=== PATIENT | male | born 1970 | race African-American/Black ===

== ENCOUNTER 2016-11-14 07:36 | Inpatient (IN) | payer BC ==
[2016-11-14] VITALS (17 sets, daily range): BP systolic 127–157; BP diastolic 79–102; PULSE 70–104; RESP 13–24; Ht 165.1 cm; Wt 118.2 kg
[~2016-11-14] VITALS: Ht 165.1 cm; Wt 118.2 kg
[~2016-11-14 07:36] MED LIST: CEFAZOLIN 2 GM/50 ML (PMX) 50 ML IVPB ONE; SOD CHLORIDE 0.9% 1,000 ML IV SCH
[2016-11-14] MEDS ORDERED: PRED5 PO (09:05)
[2016-11-14] MEDS ORDERED: PREDNISONE DROPS (09:05)
[2016-11-14] MEDS ORDERED: [UNRECOGNIZED DRUG - REMARK] PO (09:05)
[2016-11-14] MEDS ORDERED: CELLCEPT PO (09:05)
[2016-11-14] MEDS ORDERED: BUPIVACAINE 0.25% (MPF) 30 ML INJ ONE (09:31)
[2016-11-14] MEDS ORDERED: MIDAZOLAM 1 MG/ML 2 ML INJ ONE (09:38)
[2016-11-14] MEDS ORDERED: GLYCOPYRROLATE 0.4 MG INJ ONE (09:38)
[2016-11-14] MEDS ORDERED: PROPOFOL 20 ML ONE (09:38)
[2016-11-14] MEDS ORDERED: DEXAMETHASONE 4 MG/ML 1 ML INJ ONE (09:38)
[2016-11-14] MEDS ORDERED: FENTAnyl 50 MCG/ML VIAL ONE ×2 (09:38→10:31)
[2016-11-14] MEDS ORDERED: ONDANSETRON 4 MG INJ ONE (09:38)
[2016-11-14] MEDS ORDERED: ROCURONIUM 50 MG INJ ONE (09:38)
[2016-11-14] MEDS ORDERED: NEOSTIGMINE 3 MG/3 ML SYRINGE ONE (09:38)
[2016-11-14] MEDS ORDERED: CEFAZOLIN 1 GM INJ ONE (09:38)
[2016-11-14] MEDS ORDERED: LABETALOL HCL 20MG INJ ONE (10:05)
[2016-11-14] MEDS ORDERED: TRIMETHOBENZAMIDE 100 MG/ML VIAL IM PRN (10:30)
[2016-11-14] MEDS ORDERED: ONDANSETRON 4 MG INJ IV PRN (10:30)
[2016-11-14] MEDS ORDERED: hydrALAzine 20 MG INJ IV PRN (10:30)
[2016-11-14] MEDS ORDERED: OXYCODONE/ACETAMINOPHEN (5/325) TAB PO PRN ×2 (10:30)
[2016-11-14] MEDS ORDERED: FENTAnyl 50 MCG/ML VIAL IV PRN ×3 (10:30)
[2016-11-14] MEDS ORDERED: MEPERIDINE 25 MG INJ IV PRN (10:30)
[2016-11-14] MEDS ORDERED: MIDAZOLAM 1 MG/ML 2 ML INJ IV PRN (10:30)
[2016-11-14] MEDS ORDERED: DIPHENHYDRAMINE 50 MG INJ IV PRN (10:30)
[2016-11-14] MEDS ORDERED: EPHEDrine SULFATE 50 MG/5 ML SYG IV PRN (10:30)
[2016-11-14] MEDS ORDERED: LABETALOL HCL 20MG INJ IV PRN (10:30)
[2016-11-14] MEDS ORDERED: HYDROmorphONE (0.2 MG/ML) 10ML SYG IV PRN ×3 (10:30)
[2016-11-14] MEDS ORDERED: SUGAMMADEX SODIUM 200 MG/2 ML VIAL IV ONE (11:42)
[2016-11-14] MEDS ORDERED: SOD CHLORIDE 0.9% 1,000 ML IV SCH (11:49)
[2016-11-14] MEDS ORDERED: CEFAZOLIN 2 GM/50 ML (PMX) 50 ML IVPB SCH (12:00)
--- NOTE | 2016-11-14 12:01 | OPR ---
Date/Time of Note Date/Time of Note DATE: 11/14/16 TIME: 11:52 Operative Report Procedure Date: Nov 14, 2016 Preoperative Diagnosis symptomatic cholelithiasis and liver ALVARADO Postoperative Diagnosis same Operation Performed 1. laparoscopic converted to open cholecystectomy 2. liver wedge biopsy cpt code 88498 3. placement of intraabdominal drain 4. therapeutic injection of subcutaneous marcaine Surgeon: Debbie CASTANEDA Specimens gallbladder wedge liver biopsy Tubes/Drains 19 mars drain Procedure Description Patient is taken to the OR and prepped and draped in usual sterile fashion. Surgical timeout is performed IV antibiotics at given. Infraumbilical transverse incision was made with a 15 blade dissection cautery was carried onto the fascia. Fascia is divided. 0 Vicryl U stitch was placed to the fascia balloon Contreras trocar was introduced and pneumoperitoneum is established mid epigastric 12 mm optical trocar was placed under direct visualization right upper quadrant right upper flank 5 mm optical trocar was placed under direct visualization upon initial inspection the gallbladder had adhesions which were taken down bluntly. The gallbladder appeared severely intrahepatic. Further inspection showed that mobilization and manipulation of the gallbladder was extremely difficult due to the morbid obesity of the patient and poor visualization. Decision was made to convert to open. Right subcostal incision was made with 10 blade dissection cautery was carried down through the fascia. The gallbladder was identified and resected at the cystic duct and cystic artery using multiple fires of 35 mm vascular load echelon stapler. Additionally there is some oozing from the gallbladder bed this was closed by using interrupted 0 chromic sutures. There is good hemostasis. Mars drain was placed. This was used to drain the gallbladder bed. The incision was closed with a running #1 PDS loop from midline to lateral and lateral to midline. This was tied down. The wound was irrigated with Betadine. The incisions were closed using skin alonso. Local anesthesia was therapeutically injected into all surgical sites. 0 Vicryl U stitch was tied down skin was stapled. The infra umbilical incision was also injected with local anesthesia. Dry dressings were applied. Debbie CASTANEDA Nov 14, 2016 12:01
--- NOTE | 2016-11-14 12:07 | RADRPT ---
PROCEDURE: XR Abdomen. CLINICAL INDICATION: Evaluate for foreign body. TECHNIQUE: AP abdomen x-ray. COMPARISON: None. FINDINGS: The tubing artifact projects across the right flank with its tip in the right upper abdomen. An NG t ube is in place with its tip distal to the GE junction. There is a partially visualized tubing paula fact projecting in the area of the right upper abdomen. The bony elements are anatomically aligned w ith no acute fracture or bone metastasis noted.. There is fecal material in the ascending colon.. No abnormal intra-abdominal calcification or intra-abdominal mass is noted. No metallic foreign body i s identified. IMPRESSION: 1. The tubing artifact projects across the mid right flank with its distal end projecting in the rig ht upper abdomen. 2. An NG tube is noted distal to the GE junction. RPTAT:AAJJ Physician Libia Date Time Electronically viewed and signed by Physician Libia on 11/14/2016 12:07 DAI/
[2016-11-14 12:16] LABS: ADD SCAN DIFF NO
[2016-11-14 12:21] LABS: BASOPHILS % 0.1 % (0.0-2.0); EOSINOPHILS # 0.1 10^3/ul (0.0-0.5); EOSINOPHILS % 0.5 % (0.0-7.0); HEMATOCRIT 38.2 % (42.0-52.0); HEMOGLOBIN 11.7 g/dl (14.0-18.0); LYMPHOCYTES # 2.4 10^3/ul (0.8-2.9); MEAN CORPUSCULAR HEMOGLOBIN 22.7 pg (29.0-33.0); MEAN CORPUSCULAR HGB CONC 30.6 g/dl (32.0-37.0); MEAN CORPUSCULAR VOLUME 74.2 fl (82.0-101.0); MEAN PLATELET VOLUME 10.5 fl (7.4-10.4); MONOCYTE # 0.8 10^3/ul (0.3-0.9); MONOCYTES % 5.4 % (0.0-11.0); NEUTROPHIL # 11.8 10^3/ul (1.6-7.5); NEUTROPHILS % 77.2 % (39.0-77.0); PLATELET COUNT 205 10^3/UL (140-415); RED BLOOD COUNT 5.15 10^6/ul (4.70-6.10); RED CELL DISTRIBUTION WIDTH 17.5 % (11.5-14.5); WHITE BLOOD COUNT 15.3 10^3/ul (4.8-10.8)
[2016-11-14] MEDS: ACETAMINOPHEN 1000MG/100ML IV 100 ML IVPB SCH ×2 (12:40→18:02)
[2016-11-14 12:42] LABS: ALBUMIN 4.1 g/dl (3.3-4.9); ALBUMIN/GLOBULIN RATIO 1.7; BILIRUBIN,INDIRECT 0.1 mg/dl (0-1.1); BILIRUBIN,TOTAL 0.1 mg/dl (0.2-1.3); TOTAL PROTEIN 6.5 g/dl (6.1-8.1)
[2016-11-14 12:51] LABS: CALCIUM 8.4 mg/dl (8.4-10.2); CREATININE 1.2 mg/dl (0.61-1.24)
[2016-11-14 12:56] LABS: POTASSIUM 5.4 mmol/L (3.5-5.1)
[2016-11-14] MEDS ORDERED: GLUCOSE GEL 15 GRAM TUBE BUCCAL PRN (13:30)
[2016-11-14] MEDS ORDERED: GLUCOSE GEL 15 GRAM TUBE PO PRN ×2 (13:30)
[2016-11-14] MEDS ORDERED: DEXTROSE 50% 50 ML SYRINGE IV PRN ×2 (13:30)
[2016-11-14] MEDS ORDERED: NALOXONE (0.4 MG/ML) INJ IV PRN (13:30)
[2016-11-14] MEDS ORDERED: GLUCAGON 1 MG INJ IM PRN (13:30)
[2016-11-14] MEDS ORDERED: HYDROmorphONE 0.2 MG/ML PCA IV SCH (13:30)
[2016-11-14] MEDS: morphine 2 MG INJ IV PRN ×3 (13:44→19:56)
[2016-11-14] MEDS: DEXTROSE 5% 1,000 ML IV SCH (13:53)
--- NOTE | 2016-11-14 13:57 | HP ---
Date/Time of Note Date/Time of Note DATE: 11/14/16 TIME: 13:39 Assessment/Plan VTE Prophylaxis VTE Prophylaxis Intervention: SCD's Lines/Catheters IV Catheter Type (from Nrsg): Peripheral IV Assessment/Plan Assessment/Plan -Symptomatic cholelithiasis, status post open cholecystectomy and liver biopsy. Continue postoperative antibiotic. Continue Zofran as needed for nausea and Dilaudid BUYER BROKER for pain. Advance diet per surgery. -Prediabetes, continue to monitor blood sugar every 6 hours with NovoLog sliding sliding scale coverage. -Obesity with BMI of 43.4 Further recommendations based on clinical course. End of care discussed with Dr. Nesbitt. HPI/ROS Admit Date/Time Admit Date/Time Hx of Present Illness The patient is 46-year-old gentleman with history of prediabetes and obesity was evaluated by Dr. Reyes in surgical consultation for symptomatic cholelithiasis. Patient was brought to the hospital and underwent laparoscopic converted to open cholecystectomy and liver biopsy. Postoperatively patient is lethargic but easily arousable, reluctant to provide detailed medical history stated that he feels tired. Patient denies any shortness of breath denies any chest pain denies any nausea complaints of abdominal pain. PMH/Family/Social Past Medical History Prediabetes Past Surgical History Status post cataract surgery, status post hernia repair in 2006 Family History Significant Family History: no pertinent family hx Social History Alcohol Use: none Smoking Status: Former smoker Drug Use: none Exam/Review of Systems Vital Signs Vitals Vital Signs Date Time Temp Pulse Resp B/P Pulse Ox O2 Delivery O2 Flow Rate FiO2 11/14/16 12:58 102 14 140/95 99 Nasal Cannula 3.0 11/14/16 11:58 98.0 Exam Constitutional: alert, oriented, other (Lethargic) Head: atraumatic, normocephalic Neck: supple Respiratory: normal air movement Cardiovascular: nl pulses Gastrointestinal: other (Status post surgery was FLORA drain ), soft Musculoskeletal: nl gait and stance Extremities: normal pulses Labs Result Diagram: 11/14/16 1210 11/14/16 1210 Medications Medications Current Medications Morphine Sulfate 2 mg 2 mg Q2H PRN IV PAIN LEVEL 6-10; Start 11/14/16 at 12:00 Acetaminophen 100 ml @ 400 mls/hr Q6H IVPB Last administered on 11/14/16t 12:40 ; Admin Dose 400 MLS/HR; Start 11/14/16 at 12:00 Cefazolin Sodium/ Dextrose 50 ml @ 100 mls/hr Q8H IVPB ; Start 11/14/16 at 18:00 ; Stop 11/15/16 at 10:29 Dextrose (D5W) 1,000 ml @ 100 mls/hr Q10H IV ; Start 11/14/16 at 13:00 Miscellaneous Information 1 ea NOTE XX ; Start 11/14/16 at 13:30 Glucose (Glutose) 15 gm Q15M PRN PO DECREASED GLUCOSE; Start 11/14/16 at 13:30 Glucose (Glutose) 22.5 gm Q15M PRN PO DECREASED GLUCOSE; Start 11/14/16 at 13:30 Dextrose (D50w Syringe) 25 ml Q15M PRN IV DECREASED GLUCOSE; Start 11/14/16 at 13:30 Dextrose (D50w Syringe) 50 ml Q15M PRN IV DECREASED GLUCOSE; Start 11/14/16 at 13:30 Glucagon (Glucagen) 1 mg Q15M PRN IM DECREASED GLUCOSE; Start 11/14/16 at 13:30 Glucose (Glutose) 15 gm Q15M PRN BUCCAL DECREASED GLUCOSE; Start 11/14/16 at 13: 30 Diagnostic Test (Pha) (Accu-Chek) 1 ea 02 XX ; Start 11/14/16 at 13:30 Naloxone HCl (Narcan) 0.2 mg PRN PRN IV DECREASED REPIRATORY RATE; Start at 13:30; Stop 11/14/16 at 18:00 Hydromorphone HCl (Dilaudid BUYER BROKER) Q4PCA IV ; Start 11/14/16 at 13:30; Stop at 18:00 ANGELICA GONZALEZ Nov 14, 2016 13:57
[2016-11-14] MEDS: INSULIN ASPART [NOVOLOG] 3 ML PEN SC SCH ×2 (17:43→21:00)
[2016-11-14] MEDS: CEFAZOLIN 2 GM/50 ML (PMX) 50 ML IVPB SCH (18:35)
[2016-11-15] MEDS: DEXTROSE 5% 1,000 ML IV SCH (00:01)
[2016-11-15] MEDS: ACETAMINOPHEN 1000MG/100ML IV 100 ML IVPB SCH ×4 (00:01→17:54)
[2016-11-15] MEDS: ACCUCHECK 2 AM XX SCH (01:58)
[2016-11-15 02:00] VITALS: BP 139/86; PULSE 101; RESP 18
[2016-11-15] MEDS: CEFAZOLIN 2 GM/50 ML (PMX) 50 ML IVPB SCH ×2 (02:20→09:56)
[2016-11-15] MEDS: morphine 2 MG INJ IV PRN ×7 (04:59→23:12)
[2016-11-15 06:08] LABS: ADD SCAN DIFF NO
[2016-11-15 06:15] LABS: ABNORMAL IP MESSAGE 1; BASOPHILS % 0.1 % (0.0-2.0); HEMATOCRIT 35.4 % (42.0-52.0); LYMPHOCYTES # 1.3 10^3/ul (0.8-2.9); LYMPHOCYTES % 8.7 % (15.0-51.0); MEAN CORPUSCULAR HEMOGLOBIN 22.8 pg (29.0-33.0); MEAN CORPUSCULAR HGB CONC 31.1 g/dl (32.0-37.0); MEAN CORPUSCULAR VOLUME 73.3 fl (82.0-101.0); MEAN PLATELET VOLUME 10.8 fl (7.4-10.4); MONOCYTE # 1.7 10^3/ul (0.3-0.9); MONOCYTES % 11.3 % (0.0-11.0); NEUTROPHIL # 11.6 10^3/ul (1.6-7.5); NEUTROPHILS % 79.1 % (39.0-77.0); PLATELET COUNT 168 10^3/UL (140-415); RED BLOOD COUNT 4.83 10^6/ul (4.70-6.10); RED CELL DISTRIBUTION WIDTH 17.1 % (11.5-14.5); WHITE BLOOD COUNT 14.6 10^3/ul (4.8-10.8)
[2016-11-15 06:59] LABS: ALBUMIN 3.7 g/dl (3.3-4.9); ALBUMIN/GLOBULIN RATIO 1.85; BILIRUBIN,INDIRECT 0.3 mg/dl (0-1.1); BILIRUBIN,TOTAL 0.3 mg/dl (0.2-1.3); CALCIUM 8.3 mg/dl (8.4-10.2); CREATININE 0.96 mg/dl (0.61-1.24); TOTAL PROTEIN 5.7 g/dl (6.1-8.1)
[2016-11-15] MEDS: SOD CHLORIDE 0.9% 1,000 ML IV SCH ×2 (07:56→18:38)
[2016-11-15] MEDS: INSULIN ASPART [NOVOLOG] 3 ML PEN SC SCH ×4 (08:06→20:19)
[2016-11-15 08:22] VITALS: BP 137/83; RESP 20
--- NOTE | 2016-11-15 10:51 | PN ---
Date/Time of Note Date/Time of Note DATE: 11/15/16 TIME: 10:51 Assessment/Plan VTE Prophylaxis VTE Prophylaxis Intervention: other Lines/Catheters IV Catheter Type (from Nrsg): Peripheral IV Assessment/Plan Chief Complaint/Hosp Course -Symptomatic cholelithiasis, status post open cholecystectomy and liver biopsy. Continue postoperative antibiotic. Continue Zofran as needed for nausea and Dilaudid CREPE MAKER for pain. Advance diet per surgery. -Prediabetes, continue to monitor blood sugar every 6 hours with NovoLog sliding sliding scale coverage. -Obesity with BMI of 43.4 Problems: Subjective 24 Hr Interval Summary Free Text/Dictation Patient continues to have abdominal pain at site of surgery Exam/Review of Systems Vital Signs Vitals Vital Signs Date Time Temp Pulse Resp B/P Pulse Ox O2 Delivery O2 Flow Rate FiO2 11/15/16 08:22 98.7 89 20 137/83 100 11/15/16 02:00 Nasal Cannula 2.0 Intake and Output 11/14/16 11/14/16 11/15/16 15:00 23:00 07:00 Intake Total 2200 ml 600 ml 1150 ml Output Total 275 ml 70 ml 1540 ml Balance 1925 ml 530 ml -390 ml Exam Constitutional: well developed Head: atraumatic, normocephalic Neck: supple Respiratory: clear to auscultation Cardiovascular: regular rate and rhythm Gastrointestinal: non-tender, soft Extremities: normal pulses Results Result Diagram: 11/15/16 0536 11/15/16 0536 Results 24 hrs Laboratory Tests Test 11/14/16 12:10 11/14/16 12:48 11/14/16 17:34 11/14/16 21:47 White Blood Count 15.3 H Red Blood Count 5.15 Hemoglobin 11.7 L Hematocrit 38.2 L Mean Corpuscular Volume 74.2 L Mean Corpuscular Hemoglobin 22.7 L Mean Corpuscular Hemoglobin Concent 30.6 L Red Cell Distribution Width 17.5 H Platelet Count 205 Mean Platelet Volume 10.5 H Neutrophils % 77.2 H Lymphocytes % 16.0 Monocytes % 5.4 Eosinophils % 0.5 Basophils % 0.1 Nucleated Red Blood Cells % 0.0 Neutrophils # 11.8 H Lymphocytes # 2.4 Monocytes # 0.8 Eosinophils # 0.1 Basophils # 0.0 Nucleated Red Blood Cells # 0.0 Sodium Level 136 Potassium Level 5.4 H Chloride Level 108 Carbon Dioxide Level 22 Anion Gap 11 Blood Urea Nitrogen 14 Creatinine 1.20 Glucose Level 163 Calcium Level 8.4 Total Bilirubin 0.1 L Direct Bilirubin 0.00 Indirect Bilirubin 0.1 Aspartate Amino Transf (AST/SGOT) 234 H Alanine Aminotransferase (ALT/SGPT) 237 H Alkaline Phosphatase 54 Total Protein 6.5 Albumin 4.1 Globulin 2.40 Albumin/Globulin Ratio 1.70 Bedside Glucose 209 172 167 Test 11/15/16 05:36 11/15/16 07:59 White Blood Count 14.6 H Red Blood Count 4.83 Hemoglobin 11.0 L Hematocrit 35.4 L Mean Corpuscular Volume 73.3 L Mean Corpuscular Hemoglobin 22.8 L Mean Corpuscular Hemoglobin Concent 31.1 L Red Cell Distribution Width 17.1 H Platelet Count 168 Mean Platelet Volume 10.8 H Neutrophils % 79.1 H Lymphocytes % 8.7 L Monocytes % 11.3 H Eosinophils % 0.0 Basophils % 0.1 Nucleated Red Blood Cells % 0.0 Neutrophils # 11.6 H Lymphocytes # 1.3 Monocytes # 1.7 H Eosinophils # 0.0 Basophils # 0.0 Nucleated Red Blood Cells # 0.0 Sodium Level 128 L Potassium Level 4.0 Chloride Level 91 #L Carbon Dioxide Level 25 Anion Gap 16 Blood Urea Nitrogen 12 Creatinine 0.96 Glucose Level 448 #*H Calcium Level 8.3 L Total Bilirubin 0.3 Direct Bilirubin 0.00 Indirect Bilirubin 0.3 Aspartate Amino Transf (AST/SGOT) 178 H Alanine Aminotransferase (ALT/SGPT) 229 H Alkaline Phosphatase 42 Total Protein 5.7 L Albumin 3.7 Globulin 2.00 Albumin/Globulin Ratio 1.85 Bedside Glucose 141 Medications Medications Current Medications Morphine Sulfate 2 mg 2 mg Q2H PRN IV PAIN LEVEL 6-10 Last administered on 08:46; Admin Dose 2 MG; Start 11/14/16 at 12:00 Acetaminophen (Ofirmev 1000mg/ 100ml Iv) 100 ml @ 400 mls/hr Q6H IVPB Last administered on 11/15/16 05:55; Admin Dose 400 MLS/HR; Start 11/14/16 at 12:00 Miscellaneous Information 1 ea NOTE XX ; Start 11/14/16 at 13:30 Glucose (Glutose) 15 gm Q15M PRN PO DECREASED GLUCOSE; Start 11/14/16 at 13:30 Glucose (Glutose) 22.5 gm Q15M PRN PO DECREASED GLUCOSE; Start 11/14/16 at 13:30 Dextrose (D50w Syringe) 25 ml Q15M PRN IV DECREASED GLUCOSE; Start 11/14/16 at 13:30 Dextrose (D50w Syringe) 50 ml Q15M PRN IV DECREASED GLUCOSE; Start 11/14/16 at 13:30 Glucagon (Glucagen) 1 mg Q15M PRN IM DECREASED GLUCOSE; Start 11/14/16 at 13:30 Glucose (Glutose) 15 gm Q15M PRN BUCCAL DECREASED GLUCOSE; Start 11/14/16 at 13: 30 Diagnostic Test (Pha) 1 ea 1 ea 02 XX ; Start 11/14/16 at 13:30 Sodium Chloride (NS) 1,000 ml @ 100 mls/hr Q10H IV Last administered on t 07:56; Admin Dose 100 MLS/HR; Start 11/15/16 at 08:00 CHRISTY GALLOWAY Nov 15, 2016 10:51
[2016-11-15] MEDS ORDERED: VITAMIN A & D 5 GM OINT PACKET TOP ONE (10:58)
[2016-11-15] MEDS ORDERED: VITAMIN A & D 5 GM OINT PACKET TOP PRN (11:00)
[2016-11-15] MEDS: ONDANSETRON 4 MG INJ IV PRN (17:54)
[2016-11-15 20:00] VITALS: BP 139/80; PULSE 107; RESP 18
[2016-11-16] MEDS: ACETAMINOPHEN 1000MG/100ML IV 100 ML IVPB SCH ×5 (01:02→23:32)
[2016-11-16] MEDS: ONDANSETRON 4 MG INJ IV PRN ×3 (01:02→20:51)
[2016-11-16] MEDS: morphine 2 MG INJ IV PRN ×4 (01:03→15:46)
[2016-11-16] MEDS: ACCUCHECK 2 AM XX SCH (02:00)
[2016-11-16 03:41] VITALS: BP 132/67; PULSE 115; RESP 18
[2016-11-16] MEDS: SOD CHLORIDE 0.9% 1,000 ML IV SCH ×4 (05:13→23:08)
[2016-11-16 06:23] LABS: ADD SCAN DIFF NO
[2016-11-16 06:32] LABS: ABNORMAL IP MESSAGE 1; BASOPHILS % 0.2 % (0.0-2.0); EOSINOPHILS # 0.1 10^3/ul (0.0-0.5); EOSINOPHILS % 0.5 % (0.0-7.0); HEMATOCRIT 34.6 % (42.0-52.0); HEMOGLOBIN 10.7 g/dl (14.0-18.0); LYMPHOCYTES # 1.6 10^3/ul (0.8-2.9); LYMPHOCYTES % 13.3 % (15.0-51.0); MEAN CORPUSCULAR HEMOGLOBIN 22.5 pg (29.0-33.0); MEAN CORPUSCULAR HGB CONC 30.9 g/dl (32.0-37.0); MEAN CORPUSCULAR VOLUME 72.8 fl (82.0-101.0); MEAN PLATELET VOLUME 11.3 fl (7.4-10.4); MONOCYTE # 1.6 10^3/ul (0.3-0.9); MONOCYTES % 12.7 % (0.0-11.0); NEUTROPHIL # 8.9 10^3/ul (1.6-7.5); NEUTROPHILS % 72.6 % (39.0-77.0); PLATELET COUNT 179 10^3/UL (140-415); RED BLOOD COUNT 4.75 10^6/ul (4.70-6.10); RED CELL DISTRIBUTION WIDTH 16.5 % (11.5-14.5); WHITE BLOOD COUNT 12.3 10^3/ul (4.8-10.8)
[2016-11-16 07:03] LABS: ALBUMIN 3.8 g/dl (3.3-4.9); ALBUMIN/GLOBULIN RATIO 1.65; BILIRUBIN,INDIRECT 0.5 mg/dl (0-1.1); BILIRUBIN,TOTAL 0.5 mg/dl (0.2-1.3); CALCIUM 8.8 mg/dl (8.4-10.2); TOTAL PROTEIN 6.1 g/dl (6.1-8.1)
[2016-11-16 07:44] VITALS: BP 134/77; RESP 19
[2016-11-16] MEDS: INSULIN ASPART [NOVOLOG] 3 ML PEN SC SCH ×4 (08:15→21:00)
--- NOTE | 2016-11-16 11:16 | PN ---
Date/Time of Note Date/Time of Note DATE: 11/16/16 TIME: 11:15 Assessment/Plan VTE Prophylaxis VTE Prophylaxis Intervention: other Lines/Catheters IV Catheter Type (from Nrsg): Peripheral IV Assessment/Plan Chief Complaint/Hosp Course -Symptomatic cholelithiasis, status post open cholecystectomy and liver biopsy. Continue postoperative antibiotic. Continue Zofran as needed for nausea and Dilaudid ROLL SKINNER for pain. Advance diet per surgery. -Prediabetes, continue to monitor blood sugar every 6 hours with NovoLog sliding sliding scale coverage. -Obesity with BMI of 43.4 Problems: Subjective 24 Hr Interval Summary Free Text/Dictation Patient complain of abdominal pain and constipation Exam/Review of Systems Vital Signs Vitals Vital Signs Date Time Temp Pulse Resp B/P Pulse Ox O2 Delivery O2 Flow Rate FiO2 11/16/16 07:47 Nasal Cannula 2.0 11/16/16 07:44 98.6 103 19 134/77 96 Intake and Output 11/15/16 11/15/16 11/16/16 15:00 23:00 07:00 Intake Total 450 ml 1100 ml 1290 ml Output Total 90 ml 50 ml 60 ml Balance 360 ml 1050 ml 1230 ml Exam Constitutional: well developed Head: atraumatic, normocephalic Neck: supple Respiratory: clear to auscultation Cardiovascular: regular rate and rhythm Gastrointestinal: soft, tender Extremities: normal pulses Results Result Diagram: 11/16/16 0542 11/16/16 0542 Results 24 hrs Laboratory Tests Test 11/15/16 11:52 11/15/16 16:56 11/15/16 20:11 11/16/16 05:42 Bedside Glucose 130 109 122 White Blood Count 12.3 H Red Blood Count 4.75 Hemoglobin 10.7 L Hematocrit 34.6 L Mean Corpuscular Volume 72.8 L Mean Corpuscular Hemoglobin 22.5 L Mean Corpuscular Hemoglobin Concent 30.9 L Red Cell Distribution Width 16.5 H Platelet Count 179 Mean Platelet Volume 11.3 H Neutrophils % 72.6 Lymphocytes % 13.3 L Monocytes % 12.7 H Eosinophils % 0.5 Basophils % 0.2 Nucleated Red Blood Cells % 0.0 Neutrophils # 8.9 H Lymphocytes # 1.6 Monocytes # 1.6 H Eosinophils # 0.1 Basophils # 0.0 Nucleated Red Blood Cells # 0.0 Sodium Level 138 Potassium Level 4.0 Chloride Level 99 Carbon Dioxide Level 28 Anion Gap 15 Blood Urea Nitrogen 14 Creatinine 1.00 Glucose Level 126 # Calcium Level 8.8 Total Bilirubin 0.5 Direct Bilirubin 0.00 Indirect Bilirubin 0.5 Aspartate Amino Transf (AST/SGOT) 101 H Alanine Aminotransferase (ALT/SGPT) 153 H Alkaline Phosphatase 49 Total Protein 6.1 Albumin 3.8 Globulin 2.30 Albumin/Globulin Ratio 1.65 Test 11/16/16 08:23 Bedside Glucose 124 Medications Medications Current Medications Morphine Sulfate 2 mg 2 mg Q2H PRN IV PAIN LEVEL 6-10 Last administered on 09:09; Admin Dose 2 MG; Start 11/14/16 at 12:00 Acetaminophen (Ofirmev 1000mg/ 100ml Iv) 100 ml @ 400 mls/hr Q6H IVPB Last administered on 11/16/16 05:13; Admin Dose 400 MLS/HR; Start 11/14/16 at 12:00 Miscellaneous Information 1 ea NOTE XX ; Start 11/14/16 at 13:30 Glucose (Glutose) 15 gm Q15M PRN PO DECREASED GLUCOSE; Start 11/14/16 at 13:30 Glucose (Glutose) 22.5 gm Q15M PRN PO DECREASED GLUCOSE; Start 11/14/16 at 13:30 Dextrose (D50w Syringe) 25 ml Q15M PRN IV DECREASED GLUCOSE; Start 11/14/16 at 13:30 Dextrose (D50w Syringe) 50 ml Q15M PRN IV DECREASED GLUCOSE; Start 11/14/16 at 13:30 Glucagon (Glucagen) 1 mg Q15M PRN IM DECREASED GLUCOSE; Start 11/14/16 at 13:30 Glucose (Glutose) 15 gm Q15M PRN BUCCAL DECREASED GLUCOSE; Start 11/14/16 at 13: 30 Diagnostic Test (Pha) 1 ea 1 ea 02 XX ; Start 11/14/16 at 13:30 Sodium Chloride (NS) 1,000 ml @ 100 mls/hr Q10H IV Last administered on 05:13; Admin Dose 100 MLS/HR; Start 11/15/16 at 08:00 Vitamin A/Vitamin D (Vitamin A & D Oint) 1 applic DAILY PRN TOP dryness Last administered on 11/15/16 11:48; Admin Dose 1 APPLIC; Start 11/15/16 at 11:00 Ondansetron HCl (Zofran Inj) 4 mg Q6H PRN IV NAUSEA AND/OR VOMITING Last administered on 11/16/16t 05:30; Admin Dose 4 MG; Start 11/15/16 at 17:00 Simethicone (Mylicon) 80 mg Q6H PRN PO DISTENSION/GAS/BLOATING; Start 11/16/16 at 11:30; Status UNV CHRITSY GALLOWAY Nov 16, 2016 11:15
[2016-11-16] MEDS ORDERED: BISACODYL 10 MG SUPP PR ONE (14:00)
[2016-11-16] MEDS ORDERED: BISACODYL 10 MG SUPP PR PRN (16:00)
[2016-11-16 19:54] VITALS: BP 176/98; RESP 20
[2016-11-17] MEDS: ACCUCHECK 2 AM XX SCH (01:04)
[2016-11-17 01:39] VITALS: BP 175/93; RESP 20
[2016-11-17] MEDS: PROMETHAZINE 25 MG TAB PO PRN ×2 (01:42→19:52)
[2016-11-17] MEDS: morphine 2 MG INJ IV PRN ×3 (01:43→21:08)
[2016-11-17] MEDS: SOD CHLORIDE 0.9% 1,000 ML IV SCH ×4 (03:31→19:46)
[2016-11-17] MEDS: ACETAMINOPHEN 1000MG/100ML IV 100 ML IVPB SCH ×4 (05:44→23:42)
[2016-11-17 06:05] LABS: ADD SCAN DIFF NO
[2016-11-17 06:46] LABS: ABNORMAL IP MESSAGE 1; BASOPHILS % 0.2 % (0.0-2.0); EOSINOPHILS % 0.1 % (0.0-7.0); HEMATOCRIT 35.5 % (42.0-52.0); HEMOGLOBIN 11.2 g/dl (14.0-18.0); LYMPHOCYTES # 1.3 10^3/ul (0.8-2.9); LYMPHOCYTES % 9.4 % (15.0-51.0); MEAN CORPUSCULAR HEMOGLOBIN 22.9 pg (29.0-33.0); MEAN CORPUSCULAR HGB CONC 31.5 g/dl (32.0-37.0); MEAN CORPUSCULAR VOLUME 72.4 fl (82.0-101.0); MEAN PLATELET VOLUME 11.3 fl (7.4-10.4); MONOCYTE # 1.8 10^3/ul (0.3-0.9); MONOCYTES % 12.9 % (0.0-11.0); NEUTROPHIL # 10.8 10^3/ul (1.6-7.5); NEUTROPHILS % 76.6 % (39.0-77.0); PLATELET COUNT 187 10^3/UL (140-415); RED CELL DISTRIBUTION WIDTH 16.9 % (11.5-14.5); WHITE BLOOD COUNT 14.1 10^3/ul (4.8-10.8)
[2016-11-17 06:51] LABS: ALBUMIN/GLOBULIN RATIO 1.73; BILIRUBIN,INDIRECT 0.4 mg/dl (0-1.1); BILIRUBIN,TOTAL 0.4 mg/dl (0.2-1.3); CALCIUM 8.6 mg/dl (8.4-10.2); CREATININE 0.97 mg/dl (0.61-1.24); POTASSIUM 3.8 mmol/L (3.5-5.1); TOTAL PROTEIN 6.3 g/dl (6.1-8.1)
[2016-11-17 07:55] VITALS: BP 136/90; RESP 20
[2016-11-17] MEDS: INSULIN ASPART [NOVOLOG] 3 ML PEN SC SCH ×4 (09:11→21:00)
--- NOTE | 2016-11-17 12:12 | RADRPT ---
PROCEDURE: Nuclear medicine hepatobiliary scan CLINICAL INDICATION: Right upper quadrant pain. Evaluate for biliary leak. Status post cholecyst ectomy. TECHNIQUE: 8.3 mCi of technetium-99m Choletec was administered intravenously. Planar imaging of t he hepatobiliary system was performed. Delayed images were obtained. Images were reviewed on the h igh resolution PACS workstation. COMPARISON: Abdomen x-ray 11/14/2016 FINDINGS: There is normal and homogeneous uptake throughout the hepatobiliary system. There is normal emptyin g of radiotracer into the biliary tract. The common bile duct is normal. The gallbladder is surgic ally absent. However, small focus of increased activity seen within the gallbladder bed likely repr esenting a small focal contained bile leak. There is visualization of the small bowel at 15 minutes . Activity is seen extending into the drainage catheter. However, there is no activity along the per ipheral margins of the peritoneal cavity. IMPRESSION: 1. Positive bile leak with minimal focal contained radiotracer material within the gallbladder ro a. 2. However, this is appropriately drained with visible radiotracer activity seen going appropriatel y into the drainage catheter. 3. There is no evidence for significant bile leak along the peripheral margins of the peritoneal ca vity. Again, the bile leak appears to be small and contained within the gallbladder fossa. 4. Patent common bile duct with normal visualization of the small bowel. RPTAT: HMJB .Andrez Baker MD, MD Date Time Electronically viewed and signed by .Andrez Baker MD, MD on 11/17/2016 12:12 .B/
--- NOTE | 2016-11-17 15:35 | PN ---
Date/Time of Note Date/Time of Note DATE: 11/17/16 TIME: 15:33 Assessment/Plan VTE Prophylaxis VTE Prophylaxis Intervention: SCD's Lines/Catheters IV Catheter Type (from Rust): Peripheral IV Assessment/Plan Chief Complaint/Hosp Course s/p lap gustavo to open for difficult visualization and morbid obesity Problems: Assessment/Plan small gallbladder bed bile leak vs cystic duct leak with adequate drainage from drain will continue to follow if output doesn't improve in 1-2 days may need ercp with stent to redirect bile flow Subjective 24 Hr Interval Summary Free Text/Dictation mrcp shows gallbladder bed small bile leak with adequate drainage suspect cystic duct leak vs foramen of [place] leak Exam/Review of Systems Vital Signs Vitals Vital Signs Date Time Temp Pulse Resp B/P Pulse Ox O2 Delivery O2 Flow Rate FiO2 11/17/16 07:55 98.6 101 20 136/90 94 11/17/16 01:57 Nasal Cannula 2.0 Intake and Output 11/16/16 11/16/16 11/17/16 15:00 23:00 07:00 Intake Total 100 ml 2020 ml 1290 ml Output Total 540 ml Balance 100 ml 2020 ml 750 ml Exam c/d/i Results Result Diagram: 11/17/16 0530 11/17/16 0530 Results 24 hrs Laboratory Tests Test 11/16/16 17:21 11/16/16 21:06 11/17/16 05:30 11/17/16 07:59 Bedside Glucose 128 114 141 White Blood Count 14.1 H Red Blood Count 4.90 Hemoglobin 11.2 L Hematocrit 35.5 L Mean Corpuscular Volume 72.4 L Mean Corpuscular Hemoglobin 22.9 L Mean Corpuscular Hemoglobin Concent 31.5 L Red Cell Distribution Width 16.9 H Platelet Count 187 Mean Platelet Volume 11.3 H Neutrophils % 76.6 Lymphocytes % 9.4 L Monocytes % 12.9 H Eosinophils % 0.1 Basophils % 0.2 Nucleated Red Blood Cells % 0.0 Neutrophils # 10.8 H Lymphocytes # 1.3 Monocytes # 1.8 H Eosinophils # 0.0 Basophils # 0.0 Nucleated Red Blood Cells # 0.0 Sodium Level 138 Potassium Level 3.8 Chloride Level 99 Carbon Dioxide Level 30 Anion Gap 13 Blood Urea Nitrogen 16 Creatinine 0.97 Glucose Level 121 Calcium Level 8.6 Total Bilirubin 0.4 Direct Bilirubin 0.00 Indirect Bilirubin 0.4 Aspartate Amino Transf (AST/SGOT) 47 #H Alanine Aminotransferase (ALT/SGPT) 101 H Alkaline Phosphatase 49 Total Protein 6.3 Albumin 4.0 Globulin 2.30 Albumin/Globulin Ratio 1.73 Lipase 20 L Test 11/17/16 12:05 Bedside Glucose 127 Medications Medications Current Medications Morphine Sulfate 2 mg 2 mg Q2H PRN IV PAIN LEVEL 6-10 Last administered on 11/17 12:09; Admin Dose 2 MG; Start 11/14/16 at 12:00 Acetaminophen (Ofirmev 1000mg/ 100ml Iv) 100 ml @ 400 mls/hr Q6H IVPB Last administered on 11/17/16 12:10; Admin Dose 400 MLS/HR; Start 11/14/16 at 12:00 Miscellaneous Information 1 ea NOTE XX ; Start 11/14/16 at 13:30 Glucose (Glutose) 15 gm Q15M PRN PO DECREASED GLUCOSE; Start 11/14/16 at 13:30 Glucose (Glutose) 22.5 gm Q15M PRN PO DECREASED GLUCOSE; Start 11/14/16 at 13:30 Dextrose (D50w Syringe) 25 ml Q15M PRN IV DECREASED GLUCOSE; Start 11/14/16 at 13:30 Dextrose (D50w Syringe) 50 ml Q15M PRN IV DECREASED GLUCOSE; Start 11/14/16 at 13:30 Glucagon (Glucagen) 1 mg Q15M PRN IM DECREASED GLUCOSE; Start 11/14/16 at 13:30 Glucose (Glutose) 15 gm Q15M PRN BUCCAL DECREASED GLUCOSE; Start 11/14/16 at 13: 30 Diagnostic Test (Pha) 1 ea 1 ea 02 XX ; Start 11/14/16 at 13:30 Sodium Chloride (NS) 1,000 ml @ 100 mls/hr Q10H IV Last administered on 03:31; Admin Dose 100 MLS/HR; Start 11/15/16 at 08:00 Vitamin A/Vitamin D (Vitamin A & D Oint) 1 applic DAILY PRN TOP dryness Last administered on 11/15/16 11:48; Admin Dose 1 APPLIC; Start 11/15/16 at 11:00 Ondansetron HCl (Zofran Inj) 4 mg Q6H PRN IV NAUSEA AND/OR VOMITING Last administered on 11/16/16 20:51; Admin Dose 4 MG; Start 11/15/16 at 17:00 Simethicone (Mylicon) 80 mg Q6H PRN PO DISTENSION/GAS/BLOATING Last administered on 11/16/16 21:00; Admin Dose 80 MG; Start 11/16/16 at 11:30 Promethazine HCl (Phenergan) 25 mg Q6H PRN PO NAUSEA AND/OR VOMITING Last administered on 11/17/16 01:42; Admin Dose 25 MG; Start 11/16/16 at 23:00 Debbie CASTANEDA Nov 17, 2016 15:35
--- NOTE | 2016-11-17 18:29 | PN ---
Date/Time of Note Date/Time of Note DATE: 11/17/16 TIME: 18:27 Assessment/Plan VTE Prophylaxis VTE Prophylaxis Intervention: SCD's Lines/Catheters IV Catheter Type (from Nrs): Peripheral IV Assessment/Plan Chief Complaint/Hosp Course Patient status post HIDA scan today, pain is well controlled denies any nausea vomiting. Assessment/Plan -Symptomatic cholelithiasis, status post open cholecystectomy and liver biopsy. -Prediabetes, continue to monitor blood sugar every 6 hours with NovoLog sliding sliding scale coverage. -Autoimmune disorder -Obesity with BMI of 43.4 Further recommendations based on clinical course. End of care discussed with Dr. Nesbitt. Problems: Exam/Review of Systems Vital Signs Vitals Vital Signs Date Time Temp Pulse Resp B/P Pulse Ox O2 Delivery O2 Flow Rate FiO2 11/17/16 07:55 98.6 101 20 136/90 94 11/17/16 01:57 Nasal Cannula 2.0 Intake and Output 11/16/16 11/16/16 11/17/16 14:59 22:59 06:59 Intake Total 100 ml 2020 ml 1290 ml Output Total 540 ml Balance 100 ml 2020 ml 750 ml Exam Constitutional: alert, oriented Head: normocephalic Neck: supple Respiratory: normal air movement Cardiovascular: nl pulses Gastrointestinal: non-tender, soft Extremities: normal pulses Neurological: nl mental status Skin: nl turgor Results Result Diagram: 11/17/16 0530 11/17/16 0530 Results 24 hrs Laboratory Tests Test 11/16/16 21:06 11/17/16 05:30 11/17/16 07:59 11/17/16 12:05 Bedside Glucose 114 141 127 White Blood Count 14.1 H Red Blood Count 4.90 Hemoglobin 11.2 L Hematocrit 35.5 L Mean Corpuscular Volume 72.4 L Mean Corpuscular Hemoglobin 22.9 L Mean Corpuscular Hemoglobin Concent 31.5 L Red Cell Distribution Width 16.9 H Platelet Count 187 Mean Platelet Volume 11.3 H Neutrophils % 76.6 Lymphocytes % 9.4 L Monocytes % 12.9 H Eosinophils % 0.1 Basophils % 0.2 Nucleated Red Blood Cells % 0.0 Neutrophils # 10.8 H Lymphocytes # 1.3 Monocytes # 1.8 H Eosinophils # 0.0 Basophils # 0.0 Nucleated Red Blood Cells # 0.0 Sodium Level 138 Potassium Level 3.8 Chloride Level 99 Carbon Dioxide Level 30 Anion Gap 13 Blood Urea Nitrogen 16 Creatinine 0.97 Glucose Level 121 Calcium Level 8.6 Total Bilirubin 0.4 Direct Bilirubin 0.00 Indirect Bilirubin 0.4 Aspartate Amino Transf (AST/SGOT) 47 #H Alanine Aminotransferase (ALT/SGPT) 101 H Alkaline Phosphatase 49 Total Protein 6.3 Albumin 4.0 Globulin 2.30 Albumin/Globulin Ratio 1.73 Lipase 20 L Test 11/17/16 17:14 Bedside Glucose 111 Medications Medications Current Medications Morphine Sulfate 2 mg 2 mg Q2H PRN IV PAIN LEVEL 6-10 Last administered on 11/17 12:09; Admin Dose 2 MG; Start 11/14/16 at 12:00 Acetaminophen (Ofirmev 1000mg/ 100ml Iv) 100 ml @ 400 mls/hr Q6H IVPB Last administered on 11/17/16 17:16; Admin Dose 400 MLS/HR; Start 11/14/16 at 12:00 Miscellaneous Information 1 ea NOTE XX ; Start 11/14/16 at 13:30 Glucose (Glutose) 15 gm Q15M PRN PO DECREASED GLUCOSE; Start 11/14/16 at 13:30 Glucose (Glutose) 22.5 gm Q15M PRN PO DECREASED GLUCOSE; Start 11/14/16 at 13:30 Dextrose (D50w Syringe) 25 ml Q15M PRN IV DECREASED GLUCOSE; Start 11/14/16 at 13:30 Dextrose (D50w Syringe) 50 ml Q15M PRN IV DECREASED GLUCOSE; Start 11/14/16 at 13:30 Glucagon (Glucagen) 1 mg Q15M PRN IM DECREASED GLUCOSE; Start 11/14/16 at 13:30 Glucose (Glutose) 15 gm Q15M PRN BUCCAL DECREASED GLUCOSE; Start 11/14/16 at 13: 30 Diagnostic Test (Pha) 1 ea 1 ea 02 XX ; Start 11/14/16 at 13:30 Sodium Chloride (NS) 1,000 ml @ 100 mls/hr Q10H IV Last administered on 15:10; Admin Dose 100 MLS/HR; Start 11/15/16 at 08:00 Vitamin A/Vitamin D (Vitamin A & D Oint) 1 applic DAILY PRN TOP dryness Last administered on 11/15/16 11:48; Admin Dose 1 APPLIC; Start 11/15/16 at 11:00 Ondansetron HCl (Zofran Inj) 4 mg Q6H PRN IV NAUSEA AND/OR VOMITING Last administered on 11/16/16 20:51; Admin Dose 4 MG; Start 11/15/16 at 17:00 Simethicone (Mylicon) 80 mg Q6H PRN PO DISTENSION/GAS/BLOATING Last administered on 11/16/16 21:00; Admin Dose 80 MG; Start 11/16/16 at 11:30 Promethazine HCl (Phenergan) 25 mg Q6H PRN PO NAUSEA AND/OR VOMITING Last administered on 11/17/16 01:42; Admin Dose 25 MG; Start 11/16/16 at 23:00 ANGELICA GONZALEZ Nov 17, 2016 18:29
[2016-11-17 20:12] VITALS: BP 164/91; RESP 20
[2016-11-17] MEDS: ONDANSETRON 4 MG INJ IV PRN (23:07)
[2016-11-17] MEDS ORDERED: hydrALAzine 20 MG INJ IV PRN (23:30)
[2016-11-17 23:42] VITALS: BP 164/90; PULSE 103
[2016-11-17 23:49] VITALS: BP 171/101; PULSE 104
[2016-11-18] VITALS (7 sets, daily range): BP systolic 133–195; BP diastolic 76–102; PULSE 104–110; RESP 18–20
[2016-11-18] MEDS: SOD CHLORIDE 0.9% 1,000 ML IV SCH ×3 (01:01→13:37)
[2016-11-18] MEDS: ACCUCHECK 2 AM XX SCH (01:54)
[2016-11-18] MEDS: PROMETHAZINE 25 MG TAB PO PRN ×2 (04:34→12:02)
[2016-11-18 05:44] LABS: ADD SCAN DIFF NO
[2016-11-18 05:45] LABS: ABNORMAL IP MESSAGE 1; BASOPHILS % 0.2 % (0.0-2.0); EOSINOPHILS # 0.2 10^3/ul (0.0-0.5); EOSINOPHILS % 1.4 % (0.0-7.0); HEMATOCRIT 32.9 % (42.0-52.0); HEMOGLOBIN 10.3 g/dl (14.0-18.0); LYMPHOCYTES # 1.4 10^3/ul (0.8-2.9); LYMPHOCYTES % 11.6 % (15.0-51.0); MEAN CORPUSCULAR HEMOGLOBIN 22.5 pg (29.0-33.0); MEAN CORPUSCULAR HGB CONC 31.3 g/dl (32.0-37.0); MEAN CORPUSCULAR VOLUME 71.8 fl (82.0-101.0); MEAN PLATELET VOLUME 10.9 fl (7.4-10.4); MONOCYTE # 1.7 10^3/ul (0.3-0.9); MONOCYTES % 13.4 % (0.0-11.0); NEUTROPHILS % 71.9 % (39.0-77.0); PLATELET COUNT 202 10^3/UL (140-415); RED BLOOD COUNT 4.58 10^6/ul (4.70-6.10); RED CELL DISTRIBUTION WIDTH 16.3 % (11.5-14.5); WHITE BLOOD COUNT 12.5 10^3/ul (4.8-10.8)
[2016-11-18] MEDS: ACETAMINOPHEN 1000MG/100ML IV 100 ML IVPB SCH ×2 (05:58→12:00)
[2016-11-18] MEDS: ONDANSETRON 4 MG INJ IV PRN ×2 (06:04→19:59)
[2016-11-18 06:19] LABS: CALCIUM 8.5 mg/dl (8.4-10.2); CREATININE 0.96 mg/dl (0.61-1.24); POTASSIUM 3.6 mmol/L (3.5-5.1)
[2016-11-18] MEDS: INSULIN ASPART [NOVOLOG] 3 ML PEN SC SCH ×3 (08:07→17:42)
[2016-11-18] MEDS: METOPROLOL 25 MG TAB PO SCH ×2 (08:20→20:56)
[2016-11-18] MEDS ORDERED: ACETAMINOPHEN 325 MG TAB PO PRN (13:00)
--- NOTE | 2016-11-18 14:30 | PN ---
Date/Time of Note Date/Time of Note DATE: 11/18/16 TIME: 14:24 Assessment/Plan VTE Prophylaxis VTE Prophylaxis Intervention: SCD's Lines/Catheters IV Catheter Type (from Nrs): Peripheral IV Assessment/Plan Chief Complaint/Hosp Course Patient's complaint of intermittent hiccups, had nausea in the morning, currently denies any nausea able to tolerate lunch. Assessment/Plan -Symptomatic cholelithiasis, status post open cholecystectomy and liver biopsy. -Small gallbladder bed bile leak vs cystic duct leak with adequate drainage from drain, to need to monitor, possible ERCP with stent placement if the output does not improve in a couple of days -Prediabetes, continue to monitor blood sugar every 6 hours with NovoLog sliding sliding scale coverage. -Autoimmune disorder -Obesity with BMI of 43.4 Further recommendations based on clinical course. End of care discussed with Dr. Nesbitt. Problems: Exam/Review of Systems Vital Signs Vitals Vital Signs Date Time Temp Pulse Resp B/P Pulse Ox O2 Delivery O2 Flow Rate FiO2 11/18/16 09:54 97 165/93 11/18/16 07:49 98.7 18 97 11/17/16 01:57 Nasal Cannula 2.0 Intake and Output 11/17/16 11/17/16 11/18/16 15:00 23:00 07:00 Intake Total 600 ml 1650 ml 2070 ml Output Total 75 ml 650 ml 1135 ml Balance 525 ml 1000 ml 935 ml Exam Constitutional: alert, oriented Head: normocephalic Neck: supple Respiratory: normal air movement Cardiovascular: nl pulses Gastrointestinal: non-tender, soft Extremities: normal pulses Neurological: nl mental status Skin: nl turgor Results Result Diagram: 11/18/16 0455 11/18/16 0501 Results 24 hrs Laboratory Tests Test 11/17/16 17:14 11/17/16 21:12 11/18/16 04:55 11/18/16 05:01 Bedside Glucose 111 123 White Blood Count 12.5 H Red Blood Count 4.58 L Hemoglobin 10.3 L Hematocrit 32.9 L Mean Corpuscular Volume 71.8 L Mean Corpuscular Hemoglobin 22.5 L Mean Corpuscular Hemoglobin Concent 31.3 L Red Cell Distribution Width 16.3 H Platelet Count 202 Mean Platelet Volume 10.9 H Neutrophils % 71.9 Lymphocytes % 11.6 L Monocytes % 13.4 H Eosinophils % 1.4 Basophils % 0.2 Nucleated Red Blood Cells % 0.0 Neutrophils # 9.0 H Lymphocytes # 1.4 Monocytes # 1.7 H Eosinophils # 0.2 Basophils # 0.0 Nucleated Red Blood Cells # 0.0 Sodium Level 136 Potassium Level 3.6 Chloride Level 103 Carbon Dioxide Level 25 Anion Gap 12 Blood Urea Nitrogen 15 Creatinine 0.96 Glucose Level 108 Calcium Level 8.5 Test 11/18/16 08:00 11/18/16 12:21 Bedside Glucose 120 108 Medications Medications Current Medications Morphine Sulfate (morphine) 2 mg Q2H PRN IV PAIN LEVEL 6-10 Last administered on 11/17/16 21:08; Admin Dose 2 MG; Start 11/14/16 at 12:00 Miscellaneous Information 1 ea NOTE XX ; Start 11/14/16 at 13:30 Glucose (Glutose) 15 gm Q15M PRN PO DECREASED GLUCOSE; Start 11/14/16 at 13:30 Glucose (Glutose) 22.5 gm Q15M PRN PO DECREASED GLUCOSE; Start 11/14/16 at 13:30 Dextrose (D50w Syringe) 25 ml Q15M PRN IV DECREASED GLUCOSE; Start 11/14/16 at 13:30 Dextrose (D50w Syringe) 50 ml Q15M PRN IV DECREASED GLUCOSE; Start 11/14/16 at 13:30 Glucagon (Glucagen) 1 mg Q15M PRN IM DECREASED GLUCOSE; Start 11/14/16 at 13:30 Glucose (Glutose) 15 gm Q15M PRN BUCCAL DECREASED GLUCOSE; Start 11/14/16 at 13: 30 Diagnostic Test (Pha) 1 ea 1 ea 02 XX ; Start 11/14/16 at 13:30 Sodium Chloride (NS) 1,000 ml @ 100 mls/hr Q10H IV Last administered on 13:37; Admin Dose 100 MLS/HR; Start 11/15/16 at 08:00 Vitamin A/Vitamin D (Vitamin A & D Oint) 1 applic DAILY PRN TOP dryness Last administered on 11/15/16 11:48; Admin Dose 1 APPLIC; Start 11/15/16 at 11:00 Ondansetron HCl (Zofran Inj) 4 mg Q6H PRN IV NAUSEA AND/OR VOMITING Last administered on 11/18/16 06:04; Admin Dose 4 MG; Start 11/15/16 at 17:00 Simethicone (Mylicon) 80 mg Q6H PRN PO DISTENSION/GAS/BLOATING Last administered on 11/16/16 21:00; Admin Dose 80 MG; Start 11/16/16 at 11:30 Promethazine HCl (Phenergan) 25 mg Q6H PRN PO NAUSEA AND/OR VOMITING Last administered on 11/18/16 12:02; Admin Dose 25 MG; Start 11/16/16 at 23:00 Metoprolol Tartrate (Lopressor) 25 mg BID PO Last administered on 11/18/16 08: 20; Admin Dose 25 MG; Start 11/18/16 at 09:00 Hydralazine HCl (Apresoline) 10 mg Q4H PRN IV SBP>160 Last administered on 11/17 23:42; Admin Dose 10 MG; Start 11/17/16 at 23:30 Acetaminophen (Tylenol Tab) 650 mg Q4H PRN PO PAIN AND OR ELEVATED TEMP; Start 11/18/16 at 13:00 ANGELICA GONZALEZ Nov 18, 2016 14:30
--- NOTE | 2016-11-18 16:03 | PN ---
Date/Time of Note Date/Time of Note DATE: 11/18/16 TIME: 16:01 Assessment/Plan VTE Prophylaxis VTE Prophylaxis Intervention: SCD's Lines/Catheters IV [facility] Type ([facility]): Peripheral IV Assessment/Plan Chief Complaint/Hosp Course s/p lap gustavo to open for difficult visualization and morbid obesity Problems: Assessment/Plan drainage decreasing in volume and mostly serous keep npo for a day before trying oral challenge Subjective 24 Hr Interval Summary Free Text/Dictation some emesis per patient, may need some bowel rest Exam/Review of Systems Vital Signs Vitals Vital Signs Date Time Temp Pulse Resp B/P Pulse Ox O2 Delivery O2 Flow Rate FiO2 11/18/16 09:54 97 165/93 11/18/16 07:49 98.7 18 97 11/17/16 01:57 Nasal Cannula 2.0 Intake and Output 11/17/16 11/17/16 11/18/16 15:00 23:00 07:00 Intake Total 600 ml 1650 ml 2070 ml Output Total 75 ml 650 ml 1135 ml Balance 525 ml 1000 ml 935 ml Exam c/d/i drain appears more serous and less bilious Results Result Diagram: 11/18/16 0455 11/18/16 0501 Results 24 hrs Laboratory Tests Test 11/17/16 17:14 11/17/16 21:12 11/18/16 04:55 11/18/16 05:01 Bedside Glucose 111 123 White Blood Count 12.5 H Red Blood Count 4.58 L Hemoglobin 10.3 L Hematocrit 32.9 L Mean Corpuscular Volume 71.8 L Mean Corpuscular Hemoglobin 22.5 L Mean Corpuscular Hemoglobin Concent 31.3 L Red Cell Distribution Width 16.3 H Platelet Count 202 Mean Platelet Volume 10.9 H Neutrophils % 71.9 Lymphocytes % 11.6 L Monocytes % 13.4 H Eosinophils % 1.4 Basophils % 0.2 Nucleated Red Blood Cells % 0.0 Neutrophils # 9.0 H Lymphocytes # 1.4 Monocytes # 1.7 H Eosinophils # 0.2 Basophils # 0.0 Nucleated Red Blood Cells # 0.0 Sodium Level 136 Potassium Level 3.6 Chloride Level 103 Carbon Dioxide Level 25 Anion Gap 12 Blood Urea Nitrogen 15 Creatinine 0.96 Glucose Level 108 Calcium Level 8.5 Test 11/18/16 08:00 11/18/16 12:21 Bedside Glucose 120 108 Medications Medications Current Medications Morphine Sulfate (morphine) 2 mg Q2H PRN IV PAIN LEVEL 6-10 Last administered on 11/17/16 21:08; Admin Dose 2 MG; Start 11/14/16 at 12:00 Miscellaneous Information 1 ea NOTE XX ; Start 11/14/16 at 13:30 Glucose (Glutose) 15 gm Q15M PRN PO DECREASED GLUCOSE; Start 11/14/16 at 13:30 Glucose (Glutose) 22.5 gm Q15M PRN PO DECREASED GLUCOSE; Start 11/14/16 at 13:30 Dextrose (D50w Syringe) 25 ml Q15M PRN IV DECREASED GLUCOSE; Start 11/14/16 at 13:30 Dextrose (D50w Syringe) 50 ml Q15M PRN IV DECREASED GLUCOSE; Start 11/14/16 at 13:30 Glucagon (Glucagen) 1 mg Q15M PRN IM DECREASED GLUCOSE; Start 11/14/16 at 13:30 Glucose (Glutose) 15 gm Q15M PRN BUCCAL DECREASED GLUCOSE; Start 11/14/16 at 13: 30 Diagnostic Test (Pha) 1 ea 1 ea 02 XX ; Start 11/14/16 at 13:30 Sodium Chloride (NS) 1,000 ml @ 100 mls/hr Q10H IV Last administered on 13:37; Admin Dose 100 MLS/HR; Start 11/15/16 at 08:00 Vitamin A/Vitamin D (Vitamin A & D Oint) 1 applic DAILY PRN TOP dryness Last administered on 11/15/16 11:48; Admin Dose 1 APPLIC; Start 11/15/16 at 11:00 Ondansetron HCl (Zofran Inj) 4 mg Q6H PRN IV NAUSEA AND/OR VOMITING Last administered on 11/18/16 06:04; Admin Dose 4 MG; Start 11/15/16 at 17:00 Simethicone (Mylicon) 80 mg Q6H PRN PO DISTENSION/GAS/BLOATING Last administered on 11/16/16 21:00; Admin Dose 80 MG; Start 11/16/16 at 11:30 Promethazine HCl (Phenergan) 25 mg Q6H PRN PO NAUSEA AND/OR VOMITING Last administered on 11/18/16 12:02; Admin Dose 25 MG; Start 11/16/16 at 23:00 Metoprolol Tartrate (Lopressor) 25 mg BID PO Last administered on 11/18/16 08: 20; Admin Dose 25 MG; Start 11/18/16 at 09:00 Hydralazine HCl (Apresoline) 10 mg Q4H PRN IV SBP>160 Last administered on 11/17 23:42; Admin Dose 10 MG; Start 11/17/16 at 23:30 Acetaminophen (Tylenol Tab) 650 mg Q4H PRN PO PAIN AND OR ELEVATED TEMP; Start 11/18/16 at 13:00 Debbie CASTANEDA Nov 18, 2016 16:03
[2016-11-18] MEDS: Insulin NOVOLOG SS MILD Algorithm (NPO/TPN/ENTERAL FEEDS) SC SCH (18:08)
[2016-11-18] MEDS: D5W-0.45 NACL + KCL 20 MEQ 1,000 ML IV SCH (18:49)
[2016-11-19] MEDS: D5W-0.45 NACL + KCL 20 MEQ 1,000 ML IV SCH ×3 (04:26→23:56)
[2016-11-19] MEDS: Insulin NOVOLOG SS MILD Algorithm (NPO/TPN/ENTERAL FEEDS) SC SCH ×5 (05:57→23:56)
[2016-11-19] MEDS: PROMETHAZINE 25 MG TAB PO PRN ×3 (06:07→21:52)
[2016-11-19 07:25] VITALS: BP 168/100; RESP 18
[2016-11-19] MEDS: METOPROLOL 25 MG TAB PO SCH ×2 (07:52→20:40)
[2016-11-19 09:51] VITALS: BP 136/84; PULSE 97
[2016-11-19 10:34] LABS: ADD SCAN DIFF NO
[2016-11-19 10:39] LABS: ABNORMAL IP MESSAGE 1; BASOPHILS % 0.3 % (0.0-2.0); EOSINOPHILS # 0.2 10^3/ul (0.0-0.5); EOSINOPHILS % 1.5 % (0.0-7.0); HEMATOCRIT 32.4 % (42.0-52.0); HEMOGLOBIN 10.6 g/dl (14.0-18.0); LYMPHOCYTES # 1.4 10^3/ul (0.8-2.9); MEAN CORPUSCULAR HEMOGLOBIN 23.4 pg (29.0-33.0); MEAN CORPUSCULAR HGB CONC 32.7 g/dl (32.0-37.0); MEAN CORPUSCULAR VOLUME 71.5 fl (82.0-101.0); MEAN PLATELET VOLUME 10.7 fl (7.4-10.4); MONOCYTE # 1.6 10^3/ul (0.3-0.9); MONOCYTES % 14.5 % (0.0-11.0); NEUTROPHIL # 7.6 10^3/ul (1.6-7.5); NEUTROPHILS % 69.4 % (39.0-77.0); NUCLEATED RED BLOOD CELLS% 0.2 /100WBC (0.0-0.0); PLATELET COUNT 231 10^3/UL (140-415); RED BLOOD COUNT 4.53 10^6/ul (4.70-6.10); RED CELL DISTRIBUTION WIDTH 15.8 % (11.5-14.5); WHITE BLOOD COUNT 10.9 10^3/ul (4.8-10.8)
[2016-11-19 10:58] LABS: CALCIUM 8.5 mg/dl (8.4-10.2); CREATININE 0.95 mg/dl (0.61-1.24); POTASSIUM 3.5 mmol/L (3.5-5.1)
--- NOTE | 2016-11-19 12:31 | PN ---
Date/Time of Note Date/Time of Note DATE: 11/19/16 TIME: 12:29 Assessment/Plan VTE Prophylaxis VTE Prophylaxis Intervention: SCD's Lines/Catheters IV Catheter Type (from Nrsg): Peripheral IV Assessment/Plan Chief Complaint/Hosp Course s/p lap gustavo to open for difficult visualization and morbid obesity Problems: Assessment/Plan drainage decreasing still nausea and emesis start ngt Subjective 24 Hr Interval Summary Free Text/Dictation more emesis in past 24 hours of bilious material Exam/Review of Systems Vital Signs Vitals Vital Signs Date Time Temp Pulse Resp B/P Pulse Ox O2 Delivery O2 Flow Rate FiO2 11/19/16 09:51 97 136/84 11/19/16 07:25 98.6 18 95 11/17/16 01:57 Nasal Cannula 2.0 Intake and Output 11/18/16 11/18/16 11/19/16 15:00 23:00 07:00 Intake Total 1040 ml 1630 ml Output Total 600 ml 620 ml 370 ml Balance -600 ml 420 ml 1260 ml Exam c/d/i elisa drainage serous elisa output decreasing Results Result Diagram: 11/19/16 1023 11/19/16 1023 Results 24 hrs Laboratory Tests Test 11/18/16 17:41 11/19/16 00:41 11/19/16 05:55 11/19/16 10:23 Bedside Glucose 117 118 123 White Blood Count 10.9 H Red Blood Count 4.53 L Hemoglobin 10.6 L Hematocrit 32.4 L Mean Corpuscular Volume 71.5 L Mean Corpuscular Hemoglobin 23.4 L Mean Corpuscular Hemoglobin Concent 32.7 Red Cell Distribution Width 15.8 H Platelet Count 231 Mean Platelet Volume 10.7 H Neutrophils % 69.4 Lymphocytes % 13.0 L Monocytes % 14.5 H Eosinophils % 1.5 Basophils % 0.3 Nucleated Red Blood Cells % 0.2 H Neutrophils # 7.6 H Lymphocytes # 1.4 Monocytes # 1.6 H Eosinophils # 0.2 Basophils # 0.0 Nucleated Red Blood Cells # 0.0 Sodium Level 133 L Potassium Level 3.5 Chloride Level 99 Carbon Dioxide Level 27 Anion Gap 11 Blood Urea Nitrogen 15 Creatinine 0.95 Glucose Level 132 Calcium Level 8.5 Test 11/19/16 11:50 Bedside Glucose 115 Medications Medications Current Medications Morphine Sulfate (morphine) 2 mg Q2H PRN IV PAIN LEVEL 6-10 Last administered on 11/17/16 21:08; Admin Dose 2 MG; Start 11/14/16 at 12:00 Miscellaneous Information 1 ea NOTE XX ; Start 11/14/16 at 13:30 Glucose (Glutose) 15 gm Q15M PRN PO DECREASED GLUCOSE; Start 11/14/16 at 13:30 Glucose (Glutose) 22.5 gm Q15M PRN PO DECREASED GLUCOSE; Start 11/14/16 at 13:30 Dextrose (D50w Syringe) 25 ml Q15M PRN IV DECREASED GLUCOSE; Start 11/14/16 at 13:30 Dextrose (D50w Syringe) 50 ml Q15M PRN IV DECREASED GLUCOSE; Start 11/14/16 at 13:30 Glucagon (Glucagen) 1 mg Q15M PRN IM DECREASED GLUCOSE; Start 11/14/16 at 13:30 Glucose (Glutose) 15 gm Q15M PRN BUCCAL DECREASED GLUCOSE; Start 11/14/16 at 13: 30 Vitamin A/Vitamin D (Vitamin A & D Oint) 1 applic DAILY PRN TOP dryness Last administered on 11/15/16 11:48; Admin Dose 1 APPLIC; Start 11/15/16 at 11:00 Ondansetron HCl (Zofran Inj) 4 mg Q6H PRN IV NAUSEA AND/OR VOMITING Last administered on 11/18/16 19:59; Admin Dose 4 MG; Start 11/15/16 at 17:00 Simethicone (Mylicon) 80 mg Q6H PRN PO DISTENSION/GAS/BLOATING Last administered on 11/16/16 21:00; Admin Dose 80 MG; Start 11/16/16 at 11:30 Promethazine HCl (Phenergan) 25 mg Q6H PRN PO NAUSEA AND/OR VOMITING Last administered on 11/19/16 06:07; Admin Dose 25 MG; Start 11/16/16 at 23:00 Metoprolol Tartrate (Lopressor) 25 mg BID PO Last administered on 11/19/16 07: 52; Admin Dose 25 MG; Start 11/18/16 at 09:00 Hydralazine HCl (Apresoline) 10 mg Q4H PRN IV SBP>160 Last administered on 11/17 23:42; Admin Dose 10 MG; Start 11/17/16 at 23:30 Acetaminophen (Tylenol Tab) 650 mg Q4H PRN PO PAIN AND OR ELEVATED TEMP; Start 11/18/16 at 13:00 Insulin Aspart (Adult SC Insulin - Mild Algorithm)... Q6 SC ; Start 11/18/16 at 18:08 Potassium Chloride/Dextrose/ Sod Cl (D5-1/2ns + KCl 20 Meq) 1,000 ml @ 100 mls/ hr Q10H IV Last administered on 11/19/16 04:26; Admin Dose 100 MLS/HR; Start 11/18/16 at 18:30 Debbie CASTANEDA Nov 19, 2016 12:30
--- NOTE | 2016-11-19 14:30 | PN ---
Date/Time of Note Date/Time of Note DATE: 11/19/16 TIME: 14:29 Assessment/Plan VTE Prophylaxis VTE Prophylaxis Intervention: SCD's Lines/Catheters IV [facility] Type (from [facility]): Peripheral IV Assessment/Plan Chief Complaint/Hosp Course Patient is currently n.p.o., continue IV fluids, monitor blood sugar. Assessment/Plan -Symptomatic cholelithiasis, status post open cholecystectomy and liver biopsy. -Small gallbladder bed bile leak vs cystic duct leak with adequate drainage from drain, to need to monitor, possible ERCP with stent placement if the output does not improve in a couple of days -Prediabetes, continue to monitor blood sugar every 6 hours with NovoLog sliding sliding scale coverage. -Autoimmune disorder -Obesity with BMI of 43.4 Further recommendations based on clinical course. End of care discussed with Dr. Nesbitt. Problems: Exam/Review of Systems Vital Signs Vitals Vital Signs Date Time Temp Pulse Resp B/P Pulse Ox O2 Delivery O2 Flow Rate FiO2 11/19/16 09:51 97 136/84 11/19/16 07:25 98.6 18 95 11/17/16 01:57 Nasal Cannula 2.0 Intake and Output 11/18/16 11/18/16 11/19/16 15:00 23:00 07:00 Intake Total 1040 ml 1630 ml Output Total 600 ml 620 ml 370 ml Balance -600 ml 420 ml 1260 ml Exam Constitutional: alert, oriented Head: normocephalic Neck: supple Respiratory: normal air movement Cardiovascular: nl pulses Gastrointestinal: non-tender, soft Extremities: normal pulses Neurological: nl mental status Skin: nl turgor Results Result Diagram: 11/19/16 1023 11/19/16 1023 Results 24 hrs Laboratory Tests Test 11/18/16 17:41 11/19/16 00:41 11/19/16 05:55 11/19/16 10:23 Bedside Glucose 117 118 123 White Blood Count 10.9 H Red Blood Count 4.53 L Hemoglobin 10.6 L Hematocrit 32.4 L Mean Corpuscular Volume 71.5 L Mean Corpuscular Hemoglobin 23.4 L Mean Corpuscular Hemoglobin Concent 32.7 Red Cell Distribution Width 15.8 H Platelet Count 231 Mean Platelet Volume 10.7 H Neutrophils % 69.4 Lymphocytes % 13.0 L Monocytes % 14.5 H Eosinophils % 1.5 Basophils % 0.3 Nucleated Red Blood Cells % 0.2 H Neutrophils # 7.6 H Lymphocytes # 1.4 Monocytes # 1.6 H Eosinophils # 0.2 Basophils # 0.0 Nucleated Red Blood Cells # 0.0 Sodium Level 133 L Potassium Level 3.5 Chloride Level 99 Carbon Dioxide Level 27 Anion Gap 11 Blood Urea Nitrogen 15 Creatinine 0.95 Glucose Level 132 Calcium Level 8.5 Test 11/19/16 11:50 Bedside Glucose 115 Medications Medications Current Medications Morphine Sulfate (morphine) 2 mg Q2H PRN IV PAIN LEVEL 6-10 Last administered on 11/17/16 21:08; Admin Dose 2 MG; Start 11/14/16 at 12:00 Miscellaneous Information 1 ea NOTE XX ; Start 11/14/16 at 13:30 Glucose (Glutose) 15 gm Q15M PRN PO DECREASED GLUCOSE; Start 11/14/16 at 13:30 Glucose (Glutose) 22.5 gm Q15M PRN PO DECREASED GLUCOSE; Start 11/14/16 at 13:30 Dextrose (D50w Syringe) 25 ml Q15M PRN IV DECREASED GLUCOSE; Start 11/14/16 at 13:30 Dextrose (D50w Syringe) 50 ml Q15M PRN IV DECREASED GLUCOSE; Start 11/14/16 at 13:30 Glucagon (Glucagen) 1 mg Q15M PRN IM DECREASED GLUCOSE; Start 11/14/16 at 13:30 Glucose (Glutose) 15 gm Q15M PRN BUCCAL DECREASED GLUCOSE; Start 11/14/16 at 13: 30 Vitamin A/Vitamin D (Vitamin A & D Oint) 1 applic DAILY PRN TOP dryness Last administered on 11/15/16 11:48; Admin Dose 1 APPLIC; Start 11/15/16 at 11:00 Ondansetron HCl (Zofran Inj) 4 mg Q6H PRN IV NAUSEA AND/OR VOMITING Last administered on 11/18/16 19:59; Admin Dose 4 MG; Start 11/15/16 at 17:00 Simethicone (Mylicon) 80 mg Q6H PRN PO DISTENSION/GAS/BLOATING Last administered on 11/16/16 21:00; Admin Dose 80 MG; Start 11/16/16 at 11:30 Promethazine HCl (Phenergan) 25 mg Q6H PRN PO NAUSEA AND/OR VOMITING Last administered on 11/19/16 06:07; Admin Dose 25 MG; Start 11/16/16 at 23:00 Metoprolol Tartrate (Lopressor) 25 mg BID PO Last administered on 11/19/16 07: 52; Admin Dose 25 MG; Start 11/18/16 at 09:00 Hydralazine HCl (Apresoline) 10 mg Q4H PRN IV SBP>160 Last administered on 11/17 23:42; Admin Dose 10 MG; Start 11/17/16 at 23:30 Acetaminophen (Tylenol Tab) 650 mg Q4H PRN PO PAIN AND OR ELEVATED TEMP; Start 11/18/16 at 13:00 Insulin Aspart (Adult SC Insulin - Mild Algorithm)... Q6 SC ; Start 11/18/16 at 18:08 Potassium Chloride/Dextrose/ Sod Cl (D5-1/2ns + KCl 20 Meq) 1,000 ml @ 100 mls/ hr Q10H IV Last administered on 11/19/16 04:26; Admin Dose 100 MLS/HR; Start 11/18/16 at 18:30 ANGELICA GONZALEZ Nov 19, 2016 14:30
[2016-11-19] MEDS: morphine 2 MG INJ IV PRN (15:45)
[2016-11-19 20:27] VITALS: BP 172/102; RESP 18
[2016-11-19] MEDS: ONDANSETRON 4 MG INJ IV PRN (20:43)
[2016-11-20 02:03] VITALS: BP 158/91; RESP 18
[2016-11-20 05:39] LABS: ADD SCAN DIFF NO
[2016-11-20 05:48] LABS: BASOPHILS % 0.3 % (0.0-2.0); EOSINOPHILS # 0.1 10^3/ul (0.0-0.5); EOSINOPHILS % 1.4 % (0.0-7.0); HEMATOCRIT 34.9 % (42.0-52.0); HEMOGLOBIN 11.1 g/dl (14.0-18.0); LYMPHOCYTES # 1.2 10^3/ul (0.8-2.9); LYMPHOCYTES % 16.9 % (15.0-51.0); MEAN CORPUSCULAR HEMOGLOBIN 22.8 pg (29.0-33.0); MEAN CORPUSCULAR HGB CONC 31.8 g/dl (32.0-37.0); MEAN CORPUSCULAR VOLUME 71.7 fl (82.0-101.0); MONOCYTE # 1.1 10^3/ul (0.3-0.9); MONOCYTES % 15.3 % (0.0-11.0); NEUTROPHIL # 4.6 10^3/ul (1.6-7.5); NEUTROPHILS % 65.3 % (39.0-77.0); PLATELET COUNT 235 10^3/UL (140-415); RED BLOOD COUNT 4.87 10^6/ul (4.70-6.10); RED CELL DISTRIBUTION WIDTH 15.4 % (11.5-14.5); WHITE BLOOD COUNT 7.1 10^3/ul (4.8-10.8)
[2016-11-20] MEDS: Insulin NOVOLOG SS MILD Algorithm (NPO/TPN/ENTERAL FEEDS) SC SCH ×4 (06:00→23:54)
[2016-11-20] MEDS: ONDANSETRON 4 MG INJ IV PRN ×5 (06:01→23:46)
[2016-11-20 06:09] LABS: CALCIUM 8.7 mg/dl (8.4-10.2); CREATININE 1.02 mg/dl (0.61-1.24); POTASSIUM 3.6 mmol/L (3.5-5.1)
[2016-11-20] MEDS: METOPROLOL 25 MG TAB PO SCH ×2 (08:02→21:00)
[2016-11-20 08:08] VITALS: BP 145/86; RESP 22
[2016-11-20 09:15] VITALS: PULSE 98
[2016-11-20] MEDS: D5W-0.45 NACL + KCL 20 MEQ 1,000 ML IV SCH ×2 (10:10→20:05)
--- NOTE | 2016-11-20 12:09 | PN ---
Date/Time of Note Date/Time of Note DATE: 11/20/16 TIME: 12:08 Assessment/Plan VTE Prophylaxis VTE Prophylaxis Intervention: SCD's Lines/Catheters IV Catheter Type (from Nrs): Peripheral IV Assessment/Plan Chief Complaint/Hosp Course s/p lap gustavo to open for difficult visualization and morbid obesity Problems: Assessment/Plan drain output significantly decreased attempted ngt on left nares but unable to pass continue npo and ivf Subjective 24 Hr Interval Summary Free Text/Dictation drain output down, ngt insertion attempted but patient unable to tolerate it, Exam/Review of Systems Vital Signs Vitals Vital Signs Date Time Temp Pulse Resp B/P Pulse Ox O2 Delivery O2 Flow Rate FiO2 11/20/16 09:15 98 11/20/16 08:08 98.8 22 145/86 96 11/17/16 01:57 Nasal Cannula 2.0 Intake and Output 11/19/16 11/19/16 11/20/16 15:00 23:00 07:00 Intake Total 800 ml 350 ml 1205 ml Output Total 1180 ml 2070 ml Balance 800 ml -830 ml -865 ml Exam c/d/i Results Result Diagram: 11/20/16 0526 11/20/16 0526 Results 24 hrs Laboratory Tests Test 11/19/16 18:10 11/19/16 23:56 11/20/16 05:26 11/20/16 06:04 Bedside Glucose 138 126 132 White Blood Count 7.1 # Red Blood Count 4.87 Hemoglobin 11.1 L Hematocrit 34.9 L Mean Corpuscular Volume 71.7 L Mean Corpuscular Hemoglobin 22.8 L Mean Corpuscular Hemoglobin Concent 31.8 L Red Cell Distribution Width 15.4 H Platelet Count 235 Mean Platelet Volume 10.0 Neutrophils % 65.3 Lymphocytes % 16.9 Monocytes % 15.3 H Eosinophils % 1.4 Basophils % 0.3 Nucleated Red Blood Cells % 0.0 Neutrophils # 4.6 Lymphocytes # 1.2 Monocytes # 1.1 H Eosinophils # 0.1 Basophils # 0.0 Nucleated Red Blood Cells # 0.0 Sodium Level 134 L Potassium Level 3.6 Chloride Level 99 Carbon Dioxide Level 28 Anion Gap 11 Blood Urea Nitrogen 14 Creatinine 1.02 Glucose Level 149 Calcium Level 8.7 Test 11/20/16 07:55 11/20/16 11:47 Bedside Glucose 132 118 Medications Medications Current Medications Morphine Sulfate (morphine) 2 mg Q2H PRN IV PAIN LEVEL 6-10 Last administered on 11/19/16 15:45; Admin Dose 2 MG; Start 11/14/16 at 12:00 Miscellaneous Information 1 ea NOTE XX ; Start 11/14/16 at 13:30 Glucose (Glutose) 15 gm Q15M PRN PO DECREASED GLUCOSE; Start 11/14/16 at 13:30 Glucose (Glutose) 22.5 gm Q15M PRN PO DECREASED GLUCOSE; Start 11/14/16 at 13:30 Dextrose (D50w Syringe) 25 ml Q15M PRN IV DECREASED GLUCOSE; Start 11/14/16 at 13:30 Dextrose (D50w Syringe) 50 ml Q15M PRN IV DECREASED GLUCOSE; Start 11/14/16 at 13:30 Glucagon (Glucagen) 1 mg Q15M PRN IM DECREASED GLUCOSE; Start 11/14/16 at 13:30 Glucose (Glutose) 15 gm Q15M PRN BUCCAL DECREASED GLUCOSE; Start 11/14/16 at 13: 30 Vitamin A/Vitamin D (Vitamin A & D Oint) 1 applic DAILY PRN TOP dryness Last administered on 11/15/16 11:48; Admin Dose 1 APPLIC; Start 11/15/16 at 11:00 Ondansetron HCl (Zofran Inj) 4 mg Q6H PRN IV NAUSEA AND/OR VOMITING Last administered on 11/20/16 11:33; Admin Dose 4 MG; Start 11/15/16 at 17:00 Simethicone (Mylicon) 80 mg Q6H PRN PO DISTENSION/GAS/BLOATING Last administered on 11/16/16 21:00; Admin Dose 80 MG; Start 11/16/16 at 11:30 Promethazine HCl (Phenergan) 25 mg Q6H PRN PO NAUSEA AND/OR VOMITING Last administered on 11/19/16 21:52; Admin Dose 25 MG; Start 11/16/16 at 23:00 Metoprolol Tartrate (Lopressor) 25 mg BID PO Last administered on 11/20/16 08: 02; Admin Dose 25 MG; Start 11/18/16 at 09:00 Hydralazine HCl (Apresoline) 10 mg Q4H PRN IV SBP>160 Last administered on 11/17 23:42; Admin Dose 10 MG; Start 11/17/16 at 23:30 Acetaminophen (Tylenol Tab) 650 mg Q4H PRN PO PAIN AND OR ELEVATED TEMP Last administered on 11/20/16 08:02; Admin Dose 650 MG; Start 11/18/16 at 13:00 Insulin Aspart (Adult SC Insulin - Mild Algorithm)... Q6 SC ; Start 11/18/16 at 18:08 Potassium Chloride/Dextrose/ Sod Cl (D5-1/2ns + KCl 20 Meq) 1,000 ml @ 100 mls/ hr Q10H IV Last administered on 11/20/16 10:10; Admin Dose 100 MLS/HR; Start 11/18/16 at 18:30 Debbie CASTANEDA Nov 20, 2016 12:09
--- NOTE | 2016-11-20 12:23 | PN ---
Date/Time of Note Date/Time of Note DATE: 11/20/16 TIME: 12:21 Assessment/Plan Lines/Catheters IV Catheter Type (from Nrsg): Peripheral IV Subjective 24 Hr Interval Summary Constitutional: requiring IVF Gastrointestinal: nausea, pain, vomiting Genitourinary: no complaints Musculoskeletal: bone/joint pain Skin: other Exam/Review of Systems Vital Signs Vitals Vital Signs Date Time Temp Pulse Resp B/P Pulse Ox O2 Delivery O2 Flow Rate FiO2 11/20/16 09:15 98 11/20/16 08:08 98.8 22 145/86 96 11/17/16 01:57 Nasal Cannula 2.0 Intake and Output 11/19/16 11/19/16 11/20/16 15:00 23:00 07:00 Intake Total 800 ml 350 ml 1205 ml Output Total 1180 ml 2070 ml Balance 800 ml -830 ml -865 ml Exam Constitutional: alert, oriented, well developed Respiratory: diminished breath sounds Cardiovascular: nl pulses, other, regular rate and rhythm Gastrointestinal: distended, soft Musculoskeletal: swelling (left ankle ) Extremities: edema (left ankle) Neurological: nl mental status, nl speech Results Result Diagram: 11/20/16 0526 11/20/16 0526 Results 24 hrs Laboratory Tests Test 11/19/16 18:10 11/19/16 23:56 11/20/16 05:26 11/20/16 06:04 Bedside Glucose 138 126 132 White Blood Count 7.1 # Red Blood Count 4.87 Hemoglobin 11.1 L Hematocrit 34.9 L Mean Corpuscular Volume 71.7 L Mean Corpuscular Hemoglobin 22.8 L Mean Corpuscular Hemoglobin Concent 31.8 L Red Cell Distribution Width 15.4 H Platelet Count 235 Mean Platelet Volume 10.0 Neutrophils % 65.3 Lymphocytes % 16.9 Monocytes % 15.3 H Eosinophils % 1.4 Basophils % 0.3 Nucleated Red Blood Cells % 0.0 Neutrophils # 4.6 Lymphocytes # 1.2 Monocytes # 1.1 H Eosinophils # 0.1 Basophils # 0.0 Nucleated Red Blood Cells # 0.0 Sodium Level 134 L Potassium Level 3.6 Chloride Level 99 Carbon Dioxide Level 28 Anion Gap 11 Blood Urea Nitrogen 14 Creatinine 1.02 Glucose Level 149 Calcium Level 8.7 Test 11/20/16 07:55 11/20/16 11:47 Bedside Glucose 132 118 Medications Medications Current Medications Morphine Sulfate (morphine) 2 mg Q2H PRN IV PAIN LEVEL 6-10 Last administered on 11/19/16 15:45; Admin Dose 2 MG; Start 11/14/16 at 12:00 Miscellaneous Information 1 ea NOTE XX ; Start 11/14/16 at 13:30 Glucose (Glutose) 15 gm Q15M PRN PO DECREASED GLUCOSE; Start 11/14/16 at 13:30 Glucose (Glutose) 22.5 gm Q15M PRN PO DECREASED GLUCOSE; Start 11/14/16 at 13:30 Dextrose (D50w Syringe) 25 ml Q15M PRN IV DECREASED GLUCOSE; Start 11/14/16 at 13:30 Dextrose (D50w Syringe) 50 ml Q15M PRN IV DECREASED GLUCOSE; Start 11/14/16 at 13:30 Glucagon (Glucagen) 1 mg Q15M PRN IM DECREASED GLUCOSE; Start 11/14/16 at 13:30 Glucose (Glutose) 15 gm Q15M PRN BUCCAL DECREASED GLUCOSE; Start 11/14/16 at 13: 30 Vitamin A/Vitamin D (Vitamin A & D Oint) 1 applic DAILY PRN TOP dryness Last administered on 11/15/16 11:48; Admin Dose 1 APPLIC; Start 11/15/16 at 11:00 Ondansetron HCl (Zofran Inj) 4 mg Q6H PRN IV NAUSEA AND/OR VOMITING Last administered on 11/20/16 11:33; Admin Dose 4 MG; Start 11/15/16 at 17:00 Simethicone (Mylicon) 80 mg Q6H PRN PO DISTENSION/GAS/BLOATING Last administered on 11/16/16 21:00; Admin Dose 80 MG; Start 11/16/16 at 11:30 Promethazine HCl (Phenergan) 25 mg Q6H PRN PO NAUSEA AND/OR VOMITING Last administered on 11/19/16 21:52; Admin Dose 25 MG; Start 11/16/16 at 23:00 Metoprolol Tartrate (Lopressor) 25 mg BID PO Last administered on 11/20/16 08: 02; Admin Dose 25 MG; Start 11/18/16 at 09:00 Hydralazine HCl (Apresoline) 10 mg Q4H PRN IV SBP>160 Last administered on 11/17 23:42; Admin Dose 10 MG; Start 11/17/16 at 23:30 Acetaminophen (Tylenol Tab) 650 mg Q4H PRN PO PAIN AND OR ELEVATED TEMP Last administered on 11/20/16 08:02; Admin Dose 650 MG; Start 11/18/16 at 13:00 Insulin Aspart (Adult SC Insulin - Mild Algorithm)... Q6 SC ; Start 11/18/16 at 18:08 Potassium Chloride/Dextrose/ Sod Cl (D5-1/2ns + KCl 20 Meq) 1,000 ml @ 100 mls/ hr Q10H IV Last administered on 11/20/16 10:10; Admin Dose 100 MLS/HR; Start 11/18/16 at 18:30 ARPITA BLEVINS Nov 20, 2016 12:23
[2016-11-20] MEDS ORDERED: PANTOPRAZOLE 40 MG INJ IV ONE (13:30)
[2016-11-20 13:38] VITALS: BP 131/75; RESP 20
--- NOTE | 2016-11-20 13:53 | RADRPT ---
PROCEDURE: XR Ankle. CLINICAL INDICATION: Left ankle pain TECHNIQUE: 3 views of the left ankle were performed. COMPARISON: None. FINDINGS: There is a tiny age indeterminate bone fragment at the periphery of the medial malleolus near the me dial flexor retinaculum. Alignment is normal. 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 There is mild bimalleolar soft tissue swelling. IMPRESSION: 1. Tiny age indeterminate bone fragment along the periphery of the medial malleolus may reflect a sm all avulsion fracture near the medial flexor retinaculum. 2. Mild tibiotalar osteoarthrosis. 3. Mild bimalleolar soft tissue swelling. RPTAT: UU .Osmany Meredith MD, MD Date Time Electronically viewed and signed by .Osmany Meredith MD, on 11/20/2016 13:52 .K/
[2016-11-20 20:06] VITALS: BP 142/89; RESP 20
[2016-11-20] MEDS: morphine 2 MG INJ IV PRN (20:06)
[2016-11-21 02:00] VITALS: BP 135/84; RESP 20
[2016-11-21] MEDS: ONDANSETRON 4 MG INJ IV PRN ×4 (04:44→19:27)
[2016-11-21] MEDS: PANTOPRAZOLE 40 MG INJ IV SCH (05:21)
[2016-11-21] MEDS: Insulin NOVOLOG SS MILD Algorithm (NPO/TPN/ENTERAL FEEDS) SC SCH ×4 (05:24→23:30)
[2016-11-21] MEDS: D5W-0.45 NACL + KCL 20 MEQ 1,000 ML IV SCH ×2 (05:34→15:14)
[2016-11-21 06:08] LABS: ADD SCAN DIFF NO
[2016-11-21 06:56] LABS: ALBUMIN 3.7 g/dl (3.3-4.9); ALBUMIN/GLOBULIN RATIO 1.42; BILIRUBIN,INDIRECT 0.3 mg/dl (0-1.1); BILIRUBIN,TOTAL 0.3 mg/dl (0.2-1.3); CALCIUM 8.7 mg/dl (8.4-10.2); CREATININE 1.02 mg/dl (0.61-1.24); POTASSIUM 3.4 mmol/L (3.5-5.1); TOTAL PROTEIN 6.3 g/dl (6.1-8.1)
[2016-11-21 08:06] VITALS: BP 131/84; RESP 22
[2016-11-21] MEDS: METOPROLOL 25 MG TAB PO SCH ×2 (09:00→20:10)
[2016-11-21 09:03] LABS: BASOPHILS % 0.2 % (0.0-2.0); EOSINOPHILS # 0.1 10^3/ul (0.0-0.5); EOSINOPHILS % 1.5 % (0.0-7.0); HEMATOCRIT 34.4 % (42.0-52.0); HEMOGLOBIN 10.8 g/dl (14.0-18.0); LYMPHOCYTES # 1.1 10^3/ul (0.8-2.9); LYMPHOCYTES % 18.4 % (15.0-51.0); MEAN CORPUSCULAR HEMOGLOBIN 22.5 pg (29.0-33.0); MEAN CORPUSCULAR HGB CONC 31.4 g/dl (32.0-37.0); MEAN CORPUSCULAR VOLUME 71.8 fl (82.0-101.0); MEAN PLATELET VOLUME 10.8 fl (7.4-10.4); MONOCYTE # 1.3 10^3/ul (0.3-0.9); MONOCYTES % 20.8 % (0.0-11.0); NEUTROPHIL # 3.6 10^3/ul (1.6-7.5); NEUTROPHILS % 57.2 % (39.0-77.0); PLATELET COUNT 264 10^3/UL (140-415); RED BLOOD COUNT 4.79 10^6/ul (4.70-6.10); RED CELL DISTRIBUTION WIDTH 15.9 % (11.5-14.5); WHITE BLOOD COUNT 6.2 10^3/ul (4.8-10.8)
[2016-11-21] MEDS: morphine 2 MG INJ IV PRN ×3 (09:48→21:02)
[2016-11-21] MEDS: METOCLOPRAMIDE 10 MG INJ IV SCH ×3 (11:47→23:30)
--- NOTE | 2016-11-21 11:47 | PN ---
Date/Time of Note Date/Time of Note DATE: 11/21/16 TIME: 11:45 Assessment/Plan VTE Prophylaxis VTE Prophylaxis Intervention: SCD's Lines/Catheters IV [facility] Saline Lock Assessment/Plan Chief Complaint/Hosp Course s/p lap gustavo to open for difficult visualization and morbid obesity Problems: Assessment/Plan patient having ileus and nausea and emesis but continues to refuse NGT drain output significantly decreased will obtain ct scan to see if undrained fluid collections exist Subjective 24 Hr Interval Summary Free Text/Dictation patient continues to have nausea and vomiting but refusing NGT. significant decrease in the output of drainage and mostly serous, labs all normal Exam/Review of Systems Vital Signs Vitals Vital Signs Date Time Temp Pulse Resp B/P Pulse Ox O2 Delivery O2 Flow Rate FiO2 11/21/16 08:06 97.8 109 22 131/84 95 Intake and Output 11/20/16 11/20/16 11/21/16 15:00 23:00 07:00 Intake Total 1800 ml 1000 ml 950 ml Output Total 405 ml 1200 ml 1450 ml Balance 1395 ml -200 ml -500 ml Exam c/d/i drain in place mostly serous Results Result Diagram: 11/21/16 0552 11/21/16 0552 Results 24 hrs Laboratory Tests Test 11/20/16 11:47 11/20/16 17:10 11/20/16 23:50 11/21/16 05:22 Bedside Glucose 118 117 126 136 Test 11/21/16 05:52 11/21/16 11:24 White Blood Count 6.2 Red Blood Count 4.79 Hemoglobin 10.8 L Hematocrit 34.4 L Mean Corpuscular Volume 71.8 L Mean Corpuscular Hemoglobin 22.5 L Mean Corpuscular Hemoglobin Concent 31.4 L Red Cell Distribution Width 15.9 H Platelet Count 264 Mean Platelet Volume 10.8 H Neutrophils % 57.2 Lymphocytes % 18.4 Monocytes % 20.8 H Eosinophils % 1.5 Basophils % 0.2 Nucleated Red Blood Cells % 0.0 Neutrophils # 3.6 Lymphocytes # 1.1 Monocytes # 1.3 H Eosinophils # 0.1 Basophils # 0.0 Nucleated Red Blood Cells # 0.0 Sodium Level 129 L Potassium Level 3.4 L Chloride Level 97 Carbon Dioxide Level 27 Anion Gap 8 Blood Urea Nitrogen 15 Creatinine 1.02 Glucose Level 140 Calcium Level 8.7 Total Bilirubin 0.3 Direct Bilirubin 0.00 Indirect Bilirubin 0.3 Aspartate Amino Transf (AST/SGOT) 78 H Alanine Aminotransferase (ALT/SGPT) 143 H Alkaline Phosphatase 89 Total Protein 6.3 Albumin 3.7 Globulin 2.60 Albumin/Globulin Ratio 1.42 Bedside Glucose 135 Medications Medications Current Medications Morphine Sulfate (morphine) 2 mg Q2H PRN IV PAIN LEVEL 6-10 Last administered on 11/21/16 09:48; Admin Dose 2 MG; Start 11/14/16 at 12:00 Miscellaneous Information 1 ea NOTE XX ; Start 11/14/16 at 13:30 Glucose (Glutose) 15 gm Q15M PRN PO DECREASED GLUCOSE; Start 11/14/16 at 13:30 Glucose (Glutose) 22.5 gm Q15M PRN PO DECREASED GLUCOSE; Start 11/14/16 at 13:30 Dextrose (D50w Syringe) 25 ml Q15M PRN IV DECREASED GLUCOSE; Start 11/14/16 at 13:30 Dextrose (D50w Syringe) 50 ml Q15M PRN IV DECREASED GLUCOSE; Start 11/14/16 at 13:30 Glucagon (Glucagen) 1 mg Q15M PRN IM DECREASED GLUCOSE; Start 11/14/16 at 13:30 Glucose (Glutose) 15 gm Q15M PRN BUCCAL DECREASED GLUCOSE; Start 11/14/16 at 13: 30 Vitamin A/Vitamin D (Vitamin A & D Oint) 1 applic DAILY PRN TOP dryness Last administered on 11/15/16 11:48; Admin Dose 1 APPLIC; Start 11/15/16 at 11:00 Simethicone (Mylicon) 80 mg Q6H PRN PO DISTENSION/GAS/BLOATING Last administered on 11/16/16 21:00; Admin Dose 80 MG; Start 11/16/16 at 11:30 Promethazine HCl (Phenergan) 25 mg Q6H PRN PO NAUSEA AND/OR VOMITING Last administered on 11/19/16 21:52; Admin Dose 25 MG; Start 11/16/16 at 23:00 Metoprolol Tartrate (Lopressor) 25 mg BID PO Last administered on 11/20/16 08: 02; Admin Dose 25 MG; Start 11/18/16 at 09:00 Hydralazine HCl (Apresoline) 10 mg Q4H PRN IV SBP>160 Last administered on 11/17 23:42; Admin Dose 10 MG; Start 11/17/16 at 23:30 Acetaminophen (Tylenol Tab) 650 mg Q4H PRN PO PAIN AND OR ELEVATED TEMP Last administered on 11/20/16 08:02; Admin Dose 650 MG; Start 11/18/16 at 13:00 Insulin Aspart (Adult SC Insulin - Mild Algorithm)... Q6 SC ; Start 11/18/16 at 18:08 Potassium Chloride/Dextrose/ Sod Cl (D5-1/2ns + KCl 20 Meq) 1,000 ml @ 100 mls/ hr Q10H IV Last administered on 11/21/16 05:34; Admin Dose 100 MLS/HR; Start 11/18/16 at 18:30 Pantoprazole (Protonix Iv) 40 mg DAILY@06 IV Last administered on 11/21/16 05: 21; Admin Dose 40 MG; Start 11/21/16 at 06:00 Ondansetron HCl (Zofran Inj) 4 mg Q4H PRN IV NAUSEA AND/OR VOMITING Last administered on 11/21/16 09:47; Admin Dose 4 MG; Start 11/20/16 at 17:00 Metoclopramide HCl (Reglan) 5 mg Q6 IV ; Start 11/21/16 at 12:00; Stop 11/24/16 at 11:59 Debbie CASTANEDA Nov 21, 2016 11:46
--- NOTE | 2016-11-21 14:23 | PN ---
Date/Time of Note Date/Time of Note DATE: 11/21/16 TIME: 14:20 Assessment/Plan VTE Prophylaxis VTE Prophylaxis Intervention: SCD's Lines/Catheters IV C[facility]ter Type (from [facility]): Saline Lock Assessment/Plan Chief Complaint/Hosp Course Patient is currently n.p.o., refused NG tube insertion, continue IV fluids. Assessment/Plan -Symptomatic cholelithiasis, status post open cholecystectomy and liver biopsy. -Postop ileus, patient refused NG tube -Small gallbladder bed bile leak vs cystic duct leak with adequate drainage from drain, continue to monitor, possible ERCP with stent placement if the output does not improve in a couple of days -Prediabetes, continue to monitor blood sugar every 6 hours with NovoLog sliding sliding scale coverage. -Autoimmune disorder -Obesity with BMI of 43.4 Further recommendations based on clinical course. Plan of care discussed with Dr. Nesbitt. Problems: Exam/Review of Systems Vital Signs Vitals Vital Signs Date Time Temp Pulse Resp B/P Pulse Ox O2 Delivery O2 Flow Rate FiO2 11/21/16 08:06 97.8 109 22 131/84 95 Intake and Output 11/20/16 11/20/16 11/21/16 15:00 23:00 07:00 Intake Total 1800 ml 1000 ml 950 ml Output Total 405 ml 1200 ml 1450 ml Balance 1395 ml -200 ml -500 ml Exam Constitutional: alert, oriented Head: normocephalic Neck: supple Respiratory: normal air movement Cardiovascular: nl pulses Gastrointestinal: non-tender, soft Extremities: normal pulses Neurological: nl mental status Skin: nl turgor Results Result Diagram: 11/21/16 0552 11/21/16 0552 Results 24 hrs Laboratory Tests Test 11/20/16 17:10 11/20/16 23:50 11/21/16 05:22 11/21/16 05:52 Bedside Glucose 117 126 136 White Blood Count 6.2 Red Blood Count 4.79 Hemoglobin 10.8 L Hematocrit 34.4 L Mean Corpuscular Volume 71.8 L Mean Corpuscular Hemoglobin 22.5 L Mean Corpuscular Hemoglobin Concent 31.4 L Red Cell Distribution Width 15.9 H Platelet Count 264 Mean Platelet Volume 10.8 H Neutrophils % 57.2 Lymphocytes % 18.4 Monocytes % 20.8 H Eosinophils % 1.5 Basophils % 0.2 Nucleated Red Blood Cells % 0.0 Neutrophils # 3.6 Lymphocytes # 1.1 Monocytes # 1.3 H Eosinophils # 0.1 Basophils # 0.0 Nucleated Red Blood Cells # 0.0 Sodium Level 129 L Potassium Level 3.4 L Chloride Level 97 Carbon Dioxide Level 27 Anion Gap 8 Blood Urea Nitrogen 15 Creatinine 1.02 Glucose Level 140 Calcium Level 8.7 Total Bilirubin 0.3 Direct Bilirubin 0.00 Indirect Bilirubin 0.3 Aspartate Amino Transf (AST/SGOT) 78 H Alanine Aminotransferase (ALT/SGPT) 143 H Alkaline Phosphatase 89 Total Protein 6.3 Albumin 3.7 Globulin 2.60 Albumin/Globulin Ratio 1.42 Test 11/21/16 11:24 Bedside Glucose 135 Medications Medications Current Medications Morphine Sulfate (morphine) 2 mg Q2H PRN IV PAIN LEVEL 6-10 Last administered on 11/21/16 13:42; Admin Dose 2 MG; Start 11/14/16 at 12:00 Miscellaneous Information 1 ea NOTE XX ; Start 11/14/16 at 13:30 Glucose (Glutose) 15 gm Q15M PRN PO DECREASED GLUCOSE; Start 11/14/16 at 13:30 Glucose (Glutose) 22.5 gm Q15M PRN PO DECREASED GLUCOSE; Start 11/14/16 at 13:30 Dextrose (D50w Syringe) 25 ml Q15M PRN IV DECREASED GLUCOSE; Start 11/14/16 at 13:30 Dextrose (D50w Syringe) 50 ml Q15M PRN IV DECREASED GLUCOSE; Start 11/14/16 at 13:30 Glucagon (Glucagen) 1 mg Q15M PRN IM DECREASED GLUCOSE; Start 11/14/16 at 13:30 Glucose (Glutose) 15 gm Q15M PRN BUCCAL DECREASED GLUCOSE; Start 11/14/16 at 13: 30 Vitamin A/Vitamin D (Vitamin A & D Oint) 1 applic DAILY PRN TOP dryness Last administered on 11/15/16 11:48; Admin Dose 1 APPLIC; Start 11/15/16 at 11:00 Simethicone (Mylicon) 80 mg Q6H PRN PO DISTENSION/GAS/BLOATING Last administered on 11/16/16 21:00; Admin Dose 80 MG; Start 11/16/16 at 11:30 Promethazine HCl (Phenergan) 25 mg Q6H PRN PO NAUSEA AND/OR VOMITING Last administered on 11/19/16 21:52; Admin Dose 25 MG; Start 11/16/16 at 23:00 Metoprolol Tartrate (Lopressor) 25 mg BID PO Last administered on 11/20/16 08: 02; Admin Dose 25 MG; Start 11/18/16 at 09:00 Hydralazine HCl (Apresoline) 10 mg Q4H PRN IV SBP>160 Last administered on 11/17 23:42; Admin Dose 10 MG; Start 11/17/16 at 23:30 Acetaminophen (Tylenol Tab) 650 mg Q4H PRN PO PAIN AND OR ELEVATED TEMP Last administered on 11/20/16 08:02; Admin Dose 650 MG; Start 11/18/16 at 13:00 Insulin Aspart (Adult SC Insulin - Mild Algorithm)... Q6 SC ; Start 11/18/16 at 18:08 Potassium Chloride/Dextrose/ Sod Cl (D5-1/2ns + KCl 20 Meq) 1,000 ml @ 100 mls/ hr Q10H IV Last administered on 11/21/16 05:34; Admin Dose 100 MLS/HR; Start 11/18/16 at 18:30 Pantoprazole (Protonix Iv) 40 mg DAILY@06 IV Last administered on 11/21/16 05: 21; Admin Dose 40 MG; Start 11/21/16 at 06:00 Ondansetron HCl (Zofran Inj) 4 mg Q4H PRN IV NAUSEA AND/OR VOMITING Last administered on 11/21/16 13:47; Admin Dose 4 MG; Start 11/20/16 at 17:00 Metoclopramide HCl 5 mg 5 mg Q6 IV Last administered on 11/21/16 11:47; Admin Dose 5 MG; Start 11/21/16 at 12:00; Stop 11/24/16 at 11:59 Potassium Chloride/Sodium Chloride (KCl/NS) 110 ml @ 55 mls/hr ONCE ONCE IVPB ; Start 11/21/16 at 14:30; Stop 11/21/16 at 16:29 ANGELICA GONZALEZ Nov 21, 2016 14:23
[2016-11-21] MEDS ORDERED: POTASSIUM CHLORIDE 20 MEQ in SOD CHLORIDE 0.9% 100 ML IVPB ONE (14:30)
[2016-11-21 15:34] VITALS: BP 123/84; RESP 20
--- NOTE | 2016-11-21 18:58 | RADRPT ---
PROCEDURE: CT scan of the abdomen and pelvis without IV contrast. CLINICAL INDICATION: Abdominal pain with nausea and vomiting. TECHNIQUE: Thin section axial, coronal and sagittal images were performed through the abdomen and pelvis without contrast. Radiation Dose: CTDI: 22 and DLP: 1409 One or more of the following dose reduction techniques were used: - Automated exposure control. - Adjustment of the mA and/or kV according to patient size. Use of iterative reconstruction technique. COMPARISON: Chest x-ray 06/13/2016 06:18 a.m. FINDINGS: Soft tissues: The soft tissues are generous. There is a hernia over the right anterior abdominal wa ll containing omental fat and small bowel loops. The neck of the hernia measures up to 5.4 cm sagit zach by 5.3 cm transverse. Lungs and pleural spaces: A percutaneous drainage catheter enters the right mid abdomen with the cat heter tip directed superiorly between the stomach and left lobe of the liver. There is a midline um bilical hernia measuring up to 2.4 cm AP. The neck of the hernia measures 1.9 cm transverse. There is stranding in the adjacent fat superior and inferior to the umbilicus. There is stranding in the subcutaneous fat along the right flank and to a lesser extent left flank. Heart: The main pulmonary artery and pulmonary artery outflow tracts are normal in size. There is s ubsegmental atelectasis in the medial aspect of the right lower lobe. There are additional plate-li ke areas of atelectasis in the left lower lobe and lingula. There is a small right pleural effusion . The liver, common bile duct and gallbladder: There is diffuse fatty infiltration of the liver. Live r is mildly enlarged measuring 16.1 cm AP. There is a 3.1 x 3.3 by 3.1 cm area of low attenuation i n the area of the jose hepatis. This may be the result of a biloma, seroma or old hematoma. Adjac ent radiopaque densities are seen in the jose hepatis area which may relate to postsurgical change. The gallbladder is not identified. Gastrointestinal: There is air in the distal esophagus and fluid and air in the stomach. No gastric wall thickening is identified. There are multiple organized dilated small bowel loops measuring ov er 3 cm in size consistent with a low mechanical small-bowel obstruction. Some air is noted in the colon. There is a small amount of fecal material in the rectal ampulla. The vermiform appendix is n ormal. There is diastasis rectus. Pancreas: Normal. The extrahepatic common bile duct is normal. Kidneys, bladder and adrenal glands : Normal. Spleen: Normal. There is an 8.6 mm accessory splenule. Lymph nodes: Normal. Reproductive system and pelvis : The prostate gland and seminal vesicles are normal. No free fluid is noted in the pelvis. Bony elements: There are degenerative osteophytes in the mid and lower thoracic spine. There is di sk space narrowing with ventral spondylosis at L5-S1. There is a 4.5 mm AP central disk bulge. Vasculature: Normal. IMPRESSION: 1. An anterior abdominal wall hernia containing omental fat and small bowel loops identified in the neck of the hernia measuring up to 5.3 cm transverse by 5.4 cm in height. 2. There is a small umbilical hernia containing fat. Stranding adjacent to the umbilical hernia th at may be the result of a panniculitis. 3. There is a percutaneous drain entering the right mid abdomen with its distal tip ending at the i nterface between the left lobe of the liver and fundus of the stomach. There is stranding in the sub cutaneous fat greater on the right flank and left which may be the result of a panniculitis. 4. 3.3 x 3.1 x 3.1 cm area of low attenuation in the jose hepatis area which may be the result of a biloma, seroma or hematoma. An abscess is not excluded. 5. Status post cholecystectomy. 6. Distal mechanical small-bowel obstruction. 7. Rectus diastasis. 8. Hepatomegaly with fatty infiltration of the liver. 9. Obesity. 10. Findings were phoned to the nursing station to nurseFrancesca. A read back was performed. She will contact Dr. Reyes. RPTAT:[id number] Physician Libia Date Time Electronically viewed and signed by Physician Libia on 11/21/2016 18:57 JM/
[2016-11-21] MEDS ORDERED: BUPIVACAINE 0.5%/EPI (SDV) 10 ML INJ INJ ONE (19:00)
[2016-11-21] MEDS ORDERED: BETAMET NA PHOS/AC(6 MG/ML) 5ML INJ IU ONE (19:00)
--- NOTE | 2016-11-21 19:35 | PN ---
Date/Time of Note Date/Time of Note DATE: 11/21/16 TIME: 19:33 Assessment/Plan VTE Prophylaxis VTE Prophylaxis Intervention: SCD's Lines/Catheters IV C[facility]ter Type (from [facility]): Saline Lock Assessment/Plan Chief Complaint/Hosp Course s/p lap gustavo to open for difficult visualization and morbid obesity Problems: Assessment/Plan ct scan shows possible fascial dehiscence vs hernia will take back to OR for exploration and possible bowel resection Subjective 24 Hr Interval Summary Free Text/Dictation ct scan reviewed. evidence of fascial dehiscence as the etiology of small bowel obstruction Exam/Review of Systems Vital Signs Vitals Vital Signs Date Time Temp Pulse Resp B/P Pulse Ox O2 Delivery O2 Flow Rate FiO2 11/21/16 15:34 97.9 105 20 123/84 97 Intake and Output 11/20/16 11/20/16 11/21/16 15:00 23:00 07:00 Intake Total 1800 ml 1000 ml 950 ml Output Total 405 ml 1200 ml 1450 ml Balance 1395 ml -200 ml -500 ml Exam distended abdomen however difficult to assess due to body habitus Results Result Diagram: 11/21/16 0552 11/21/16 0552 Results 24 hrs Laboratory Tests Test 11/20/16 23:50 11/21/16 05:22 11/21/16 05:52 11/21/16 11:24 Bedside Glucose 126 136 135 White Blood Count 6.2 Red Blood Count 4.79 Hemoglobin 10.8 L Hematocrit 34.4 L Mean Corpuscular Volume 71.8 L Mean Corpuscular Hemoglobin 22.5 L Mean Corpuscular Hemoglobin Concent 31.4 L Red Cell Distribution Width 15.9 H Platelet Count 264 Mean Platelet Volume 10.8 H Neutrophils % 57.2 Lymphocytes % 18.4 Monocytes % 20.8 H Eosinophils % 1.5 Basophils % 0.2 Nucleated Red Blood Cells % 0.0 Neutrophils # 3.6 Lymphocytes # 1.1 Monocytes # 1.3 H Eosinophils # 0.1 Basophils # 0.0 Nucleated Red Blood Cells # 0.0 Sodium Level 137 Potassium Level 3.4 L Chloride Level 97 Carbon Dioxide Level 27 Anion Gap 16 Blood Urea Nitrogen 15 Creatinine 1.02 Glucose Level 140 Calcium Level 8.7 Total Bilirubin 0.3 Direct Bilirubin 0.00 Indirect Bilirubin 0.3 Aspartate Amino Transf (AST/SGOT) 78 H Alanine Aminotransferase (ALT/SGPT) 143 H Alkaline Phosphatase 89 Total Protein 6.3 Albumin 3.7 Globulin 2.60 Albumin/Globulin Ratio 1.42 Test 11/21/16 17:04 Bedside Glucose 135 Medications Medications Current Medications Morphine Sulfate (morphine) 2 mg Q2H PRN IV PAIN LEVEL 6-10 Last administered on 11/21/16 13:42; Admin Dose 2 MG; Start 11/14/16 at 12:00 Miscellaneous Information 1 ea NOTE XX ; Start 11/14/16 at 13:30 Glucose (Glutose) 15 gm Q15M PRN PO DECREASED GLUCOSE; Start 11/14/16 at 13:30 Glucose (Glutose) 22.5 gm Q15M PRN PO DECREASED GLUCOSE; Start 11/14/16 at 13:30 Dextrose (D50w Syringe) 25 ml Q15M PRN IV DECREASED GLUCOSE; Start 11/14/16 at 13:30 Dextrose (D50w Syringe) 50 ml Q15M PRN IV DECREASED GLUCOSE; Start 11/14/16 at 13:30 Glucagon (Glucagen) 1 mg Q15M PRN IM DECREASED GLUCOSE; Start 11/14/16 at 13:30 Glucose (Glutose) 15 gm Q15M PRN BUCCAL DECREASED GLUCOSE; Start 11/14/16 at 13: 30 Vitamin A/Vitamin D (Vitamin A & D Oint) 1 applic DAILY PRN TOP dryness Last administered on 11/15/16 11:48; Admin Dose 1 APPLIC; Start 11/15/16 at 11:00 Simethicone (Mylicon) 80 mg Q6H PRN PO DISTENSION/GAS/BLOATING Last administered on 11/16/16 21:00; Admin Dose 80 MG; Start 11/16/16 at 11:30 Promethazine HCl (Phenergan) 25 mg Q6H PRN PO NAUSEA AND/OR VOMITING Last administered on 11/19/16 21:52; Admin Dose 25 MG; Start 11/16/16 at 23:00 Metoprolol Tartrate (Lopressor) 25 mg BID PO Last administered on 11/20/16 08: 02; Admin Dose 25 MG; Start 11/18/16 at 09:00 Hydralazine HCl (Apresoline) 10 mg Q4H PRN IV SBP>160 Last administered on 11/17 23:42; Admin Dose 10 MG; Start 11/17/16 at 23:30 Acetaminophen (Tylenol Tab) 650 mg Q4H PRN PO PAIN AND OR ELEVATED TEMP Last administered on 11/20/16 08:02; Admin Dose 650 MG; Start 11/18/16 at 13:00 Insulin Aspart (Adult SC Insulin - Mild Algorithm)... Q6 SC ; Start 11/18/16 at 18:08 Potassium Chloride/Dextrose/ Sod Cl (D5-1/2ns + KCl 20 Meq) 1,000 ml @ 100 mls/ hr Q10H IV Last administered on 11/21/16 15:14; Admin Dose 100 MLS/HR; Start 11/18/16 at 18:30 Pantoprazole (Protonix Iv) 40 mg DAILY@06 IV Last administered on 11/21/16 05: 21; Admin Dose 40 MG; Start 11/21/16 at 06:00 Ondansetron HCl (Zofran Inj) 4 mg Q4H PRN IV NAUSEA AND/OR VOMITING Last administered on 11/21/16 19:27; Admin Dose 4 MG; Start 11/20/16 at 17:00 Metoclopramide HCl (Reglan) 5 mg Q6 IV Last administered on 11/21/16 17:06; Admin Dose 5 MG; Start 11/21/16 at 12:00; Stop 11/24/16 at 11:59 Debbie CASTANEDA Nov 21, 2016 19:35
[2016-11-21 19:48] VITALS: BP 131/80; RESP 20
[2016-11-21 19:55] VITALS: BP 108/68; RESP 18
[2016-11-22] VITALS (20 sets, daily range): BP systolic 113–149; BP diastolic 60–94; PULSE 106–114; RESP 13–22
[2016-11-22] MEDS: D5W-0.45 NACL + KCL 20 MEQ 1,000 ML IV SCH ×2 (02:40→13:02)
[2016-11-22] MEDS: METOCLOPRAMIDE 10 MG INJ IV SCH ×4 (05:30→23:20)
[2016-11-22] MEDS: PANTOPRAZOLE 40 MG INJ IV SCH (05:38)
[2016-11-22] MEDS: Insulin NOVOLOG SS MILD Algorithm (NPO/TPN/ENTERAL FEEDS) SC SCH ×4 (05:38→23:23)
[2016-11-22 06:55] LABS: ADD SCAN DIFF NO
[2016-11-22 07:02] LABS: BASOPHILS % 0.6 % (0.0-2.0); EOSINOPHILS # 0.2 10^3/ul (0.0-0.5); EOSINOPHILS % 2.1 % (0.0-7.0); HEMATOCRIT 34.2 % (42.0-52.0); HEMOGLOBIN 10.9 g/dl (14.0-18.0); LYMPHOCYTES # 1.5 10^3/ul (0.8-2.9); LYMPHOCYTES % 20.8 % (15.0-51.0); MEAN CORPUSCULAR HEMOGLOBIN 22.8 pg (29.0-33.0); MEAN CORPUSCULAR HGB CONC 31.9 g/dl (32.0-37.0); MEAN CORPUSCULAR VOLUME 71.4 fl (82.0-101.0); MEAN PLATELET VOLUME 10.4 fl (7.4-10.4); MONOCYTE # 1.3 10^3/ul (0.3-0.9); MONOCYTES % 18.5 % (0.0-11.0); NEUTROPHIL # 3.9 10^3/ul (1.6-7.5); NEUTROPHILS % 55.3 % (39.0-77.0); PLATELET COUNT 280 10^3/UL (140-415); RED BLOOD COUNT 4.79 10^6/ul (4.70-6.10); RED CELL DISTRIBUTION WIDTH 15.4 % (11.5-14.5); WHITE BLOOD COUNT 7.1 10^3/ul (4.8-10.8)
[2016-11-22 07:41] LABS: CALCIUM 8.6 mg/dl (8.4-10.2); CREATININE 1.07 mg/dl (0.61-1.24); POTASSIUM 3.9 mmol/L (3.5-5.1)
[2016-11-22] MEDS: METOPROLOL 25 MG TAB PO SCH ×2 (08:20→20:39)
--- NOTE | 2016-11-22 12:29 | PN ---
Date/Time of Note Date/Time of Note DATE: 11/22/16 TIME: 12:26 Assessment/Plan VTE Prophylaxis VTE Prophylaxis Intervention: SCD's Lines/Catheters IV C[facility] (from [facility] Peripheral IV Assessment/Plan Chief Complaint/Hosp Course s/p lap gustavo to open for difficult visualization and morbid obesity Problems: Assessment/Plan ct shows fascial dehiscence one year history of high dose prednisone with resultant severe weight gain and diabetes. also patient is on cellcept to suppress immune system Subjective 24 Hr Interval Summary Free Text/Dictation patient reports he has [id number] disease which is an autoimmune disease and was on high dose prednisone for one year with resultant severe weight gain and diabetes. Also patient was on cellcept to suppress the immune system. Discussed CT findings with patient need for surgery and possible small bowel resection Exam/Review of Systems Vital Signs Vitals Vital Signs Date Time Temp Pulse Resp B/P Pulse Ox O2 Delivery O2 Flow Rate FiO2 11/22/16 07:40 98.5 103 18 120/76 95 11/22/16 02:30 Room Air Intake and Output 11/21/16 11/21/16 11/22/16 15:00 23:00 07:00 Intake Total 1260 ml 1035 ml Output Total 1250 ml 520 ml Balance 10 ml 515 ml Exam intact Results Result Diagram: 11/22/16 0535 11/22/16 0529 Results 24 hrs Laboratory Tests Test 11/21/16 17:04 11/21/16 23:27 11/22/16 05:29 11/22/16 05:35 Bedside Glucose 135 135 136 Sodium Level 140 Potassium Level 3.9 Chloride Level 99 Carbon Dioxide Level 27 Anion Gap 18 H Blood Urea Nitrogen 15 Creatinine 1.07 Glucose Level 124 Calcium Level 8.6 White Blood Count 7.1 Red Blood Count 4.79 Hemoglobin 10.9 L Hematocrit 34.2 L Mean Corpuscular Volume 71.4 L Mean Corpuscular Hemoglobin 22.8 L Mean Corpuscular Hemoglobin Concent 31.9 L Red Cell Distribution Width 15.4 H Platelet Count 280 Mean Platelet Volume 10.4 Neutrophils % 55.3 Lymphocytes % 20.8 Monocytes % 18.5 H Eosinophils % 2.1 Basophils % 0.6 Nucleated Red Blood Cells % 0.0 Neutrophils # 3.9 Lymphocytes # 1.5 Monocytes # 1.3 H Eosinophils # 0.2 Basophils # 0.0 Nucleated Red Blood Cells # 0.0 Test 11/22/16 07:23 11/22/16 11:40 Lab Scanned Report REFERENCE LAB Bedside Glucose 120 Medications Medications Current Medications Morphine Sulfate (morphine) 2 mg Q2H PRN IV PAIN LEVEL 6-10 Last administered on 11/21/16 21:02; Admin Dose 2 MG; Start 11/14/16 at 12:00 Miscellaneous Information 1 ea NOTE XX ; Start 11/14/16 at 13:30 Glucose (Glutose) 15 gm Q15M PRN PO DECREASED GLUCOSE; Start 11/14/16 at 13:30 Glucose (Glutose) 22.5 gm Q15M PRN PO DECREASED GLUCOSE; Start 11/14/16 at 13:30 Dextrose (D50w Syringe) 25 ml Q15M PRN IV DECREASED GLUCOSE; Start 11/14/16 at 13:30 Dextrose (D50w Syringe) 50 ml Q15M PRN IV DECREASED GLUCOSE; Start 11/14/16 at 13:30 Glucagon (Glucagen) 1 mg Q15M PRN IM DECREASED GLUCOSE; Start 11/14/16 at 13:30 Glucose (Glutose) 15 gm Q15M PRN BUCCAL DECREASED GLUCOSE; Start 11/14/16 at 13: 30 Vitamin A/Vitamin D (Vitamin A & D Oint) 1 applic DAILY PRN TOP dryness Last administered on 11/15/16 11:48; Admin Dose 1 APPLIC; Start 11/15/16 at 11:00 Simethicone (Mylicon) 80 mg Q6H PRN PO DISTENSION/GAS/BLOATING Last administered on 11/16/16 21:00; Admin Dose 80 MG; Start 11/16/16 at 11:30 Promethazine HCl (Phenergan) 25 mg Q6H PRN PO NAUSEA AND/OR VOMITING Last administered on 11/19/16 21:52; Admin Dose 25 MG; Start 11/16/16 at 23:00 Metoprolol Tartrate (Lopressor) 25 mg BID PO Last administered on 11/20/16 08: 02; Admin Dose 25 MG; Start 11/18/16 at 09:00 Hydralazine HCl (Apresoline) 10 mg Q4H PRN IV SBP>160 Last administered on 11/17 23:42; Admin Dose 10 MG; Start 11/17/16 at 23:30 Acetaminophen (Tylenol Tab) 650 mg Q4H PRN PO PAIN AND OR ELEVATED TEMP Last administered on 11/20/16 08:02; Admin Dose 650 MG; Start 11/18/16 at 13:00 Insulin Aspart (Adult SC Insulin - Mild Algorithm)... Q6 SC ; Start 11/18/16 at 18:08 Potassium Chloride/Dextrose/ Sod Cl (D5-1/2ns + KCl 20 Meq) 1,000 ml @ 100 mls/ hr Q10H IV Last administered on 11/22/16 02:40; Admin Dose 100 MLS/HR; Start 11/18/16 at 18:30 Pantoprazole (Protonix Iv) 40 mg DAILY@06 IV Last administered on 11/22/16 05: 38; Admin Dose 40 MG; Start 11/21/16 at 06:00 Ondansetron HCl (Zofran Inj) 4 mg Q4H PRN IV NAUSEA AND/OR VOMITING Last administered on 11/21/16 19:27; Admin Dose 4 MG; Start 11/20/16 at 17:00 Metoclopramide HCl (Reglan) 5 mg Q6 IV Last administered on 11/22/16 05:30; Admin Dose 5 MG; Start 11/21/16 at 12:00; Stop 11/24/16 at 11:59 Debbie CASTANEDA Nov 22, 2016 12:28
[2016-11-22] MEDS ORDERED: SUCCINYLCHOLINE CHLORIDE 100 MG/5 ML SYG IV ONE (13:08)
[2016-11-22] MEDS ORDERED: LIDOCAINE 2% (SDV) 5 ML INJ ONE (13:08)
[2016-11-22] MEDS ORDERED: MIDAZOLAM 1 MG/ML 2 ML INJ ONE (13:08)
[2016-11-22] MEDS ORDERED: FENTAnyl 50 MCG/ML VIAL ONE (13:09)
[2016-11-22] MEDS ORDERED: PROPOFOL 20 ML ONE (13:09)
[2016-11-22] MEDS ORDERED: KETOROLAC 30 MG INJ IV ONE (13:30)
[2016-11-22] MEDS ORDERED: PROCHLORPERAZINE 10 MG INJ IV PRN (13:30)
[2016-11-22] MEDS ORDERED: ONDANSETRON 4 MG INJ IV PRN ×2 (13:30→16:00)
[2016-11-22] MEDS ORDERED: hydrALAzine 20 MG INJ IV PRN (13:30)
[2016-11-22] MEDS ORDERED: LABETALOL HCL 20MG INJ IV PRN (13:30)
[2016-11-22] MEDS ORDERED: FENTAnyl 50 MCG/ML VIAL IV PRN (13:30)
[2016-11-22] MEDS ORDERED: MEPERIDINE 25 MG INJ IV PRN (13:30)
[2016-11-22] MEDS ORDERED: EPHEDrine SULFATE 50 MG/5 ML SYG IV PRN (13:30)
[2016-11-22] MEDS ORDERED: DIPHENHYDRAMINE 50 MG INJ IV PRN ×2 (13:30→16:00)
[2016-11-22] MEDS ORDERED: HYDROmorphONE (0.2 MG/ML) 10ML SYG IV PRN ×2 (13:30)
--- NOTE | 2016-11-22 14:13 | PN ---
Date/Time of Note Date/Time of Note DATE: 11/22/16 TIME: 14:08 Assessment/Plan VTE Prophylaxis VTE Prophylaxis Intervention: other Lines/Catheters IV Catheter Type (from [facility]): Peripheral IV Assessment/Plan Assessment/Plan -Fascial dehiscence per CT. - PER SURGERY - going to ER for possible small bowel resection Hx of [id number] disease - an autoimmune disease - patient is on high dose prednisone for one year with resultant severe weight gain and diabetes. - on cellcept to suppress the immune system. -Symptomatic cholelithiasis, status post open cholecystectomy and liver biopsy. -Postop ileus, patient refused NG tube -Small gallbladder bed bile leak vs cystic duct leak with adequate drainage from drain, continue to monitor, possible ERCP with stent placement if the output does not improve in a couple of days -Prediabetes, continue to monitor blood sugar every 6 hours with NovoLog sliding sliding scale coverage. -Autoimmune disorder -Obesity with BMI of 43.4 Further recommendations based on clinical course. Plan of care discussed with Dr. Nesbitt. Subjective 24 Hr Interval Summary Constitutional: requiring IVF Cardiovascular: no complaints Gastrointestinal: pain Genitourinary: no complaints Musculoskeletal: no complaints Exam/Review of Systems Vital Signs Vitals Vital Signs Date Time Temp Pulse Resp B/P Pulse Ox O2 Delivery O2 Flow Rate FiO2 11/22/16 07:40 98.5 103 18 120/76 95 11/22/16 02:30 Room Air Intake and Output 11/21/16 11/21/16 11/22/16 15:00 23:00 07:00 Intake Total 1260 ml 1035 ml Output Total 1250 ml 520 ml Balance 10 ml 515 ml Exam Constitutional: alert, well developed Respiratory: clear to auscultation, normal air movement Cardiovascular: nl pulses, regular rate and rhythm Gastrointestinal: non-tender, soft Musculoskeletal: nl extremities to inspection Extremities: normal pulses Neurological: nl mental status, nl speech Results Result Diagram: 11/22/16 0535 11/22/16 0529 Results 24 hrs Laboratory Tests Test 11/21/16 17:04 11/21/16 23:27 11/22/16 05:29 11/22/16 05:35 Bedside Glucose 135 135 136 Sodium Level 140 Potassium Level 3.9 Chloride Level 99 Carbon Dioxide Level 27 Anion Gap 18 H Blood Urea Nitrogen 15 Creatinine 1.07 Glucose Level 124 Calcium Level 8.6 White Blood Count 7.1 Red Blood Count 4.79 Hemoglobin 10.9 L Hematocrit 34.2 L Mean Corpuscular Volume 71.4 L Mean Corpuscular Hemoglobin 22.8 L Mean Corpuscular Hemoglobin Concent 31.9 L Red Cell Distribution Width 15.4 H Platelet Count 280 Mean Platelet Volume 10.4 Neutrophils % 55.3 Lymphocytes % 20.8 Monocytes % 18.5 H Eosinophils % 2.1 Basophils % 0.6 Nucleated Red Blood Cells % 0.0 Neutrophils # 3.9 Lymphocytes # 1.5 Monocytes # 1.3 H Eosinophils # 0.2 Basophils # 0.0 Nucleated Red Blood Cells # 0.0 Test 11/22/16 07:23 11/22/16 11:40 Lab Scanned Report REFERENCE LAB Bedside Glucose 120 Medications Medications Current Medications Morphine Sulfate (morphine) 2 mg Q2H PRN IV PAIN LEVEL 6-10 Last administered on 11/21/16 21:02; Admin Dose 2 MG; Start 11/14/16 at 12:00 Miscellaneous Information 1 ea NOTE XX ; Start 11/14/16 at 13:30 Glucose (Glutose) 15 gm Q15M PRN PO DECREASED GLUCOSE; Start 11/14/16 at 13:30 Glucose (Glutose) 22.5 gm Q15M PRN PO DECREASED GLUCOSE; Start 11/14/16 at 13:30 Dextrose (D50w Syringe) 25 ml Q15M PRN IV DECREASED GLUCOSE; Start 11/14/16 at 13:30 Dextrose (D50w Syringe) 50 ml Q15M PRN IV DECREASED GLUCOSE; Start 11/14/16 at 13:30 Glucagon (Glucagen) 1 mg Q15M PRN IM DECREASED GLUCOSE; Start 11/14/16 at 13:30 Glucose (Glutose) 15 gm Q15M PRN BUCCAL DECREASED GLUCOSE; Start 11/14/16 at 13: 30 Vitamin A/Vitamin D (Vitamin A & D Oint) 1 applic DAILY PRN TOP dryness Last administered on 11/15/16 11:48; Admin Dose 1 APPLIC; Start 11/15/16 at 11:00 Simethicone (Mylicon) 80 mg Q6H PRN PO DISTENSION/GAS/BLOATING Last administered on 11/16/16 21:00; Admin Dose 80 MG; Start 11/16/16 at 11:30 Promethazine HCl (Phenergan) 25 mg Q6H PRN PO NAUSEA AND/OR VOMITING Last administered on 11/19/16 21:52; Admin Dose 25 MG; Start 11/16/16 at 23:00 Metoprolol Tartrate (Lopressor) 25 mg BID PO Last administered on 11/20/16 08: 02; Admin Dose 25 MG; Start 11/18/16 at 09:00 Hydralazine HCl (Apresoline) 10 mg Q4H PRN IV SBP>160 Last administered on 11/17 23:42; Admin Dose 10 MG; Start 11/17/16 at 23:30 Acetaminophen (Tylenol Tab) 650 mg Q4H PRN PO PAIN AND OR ELEVATED TEMP Last administered on 11/20/16 08:02; Admin Dose 650 MG; Start 11/18/16 at 13:00 Insulin Aspart (Adult SC Insulin - Mild Algorithm)... Q6 SC ; Start 11/18/16 at 18:08 Potassium Chloride/Dextrose/ Sod Cl (D5-1/2ns + KCl 20 Meq) 1,000 ml @ 100 mls/ hr Q10H IV Last administered on 11/22/16 13:02; Admin Dose 100 MLS/HR; Start 11/18/16 at 18:30 Pantoprazole (Protonix Iv) 40 mg DAILY@06 IV Last administered on 11/22/16 05: 38; Admin Dose 40 MG; Start 11/21/16 at 06:00 Ondansetron HCl (Zofran Inj) 4 mg Q4H PRN IV NAUSEA AND/OR VOMITING Last administered on 11/21/16 19:27; Admin Dose 4 MG; Start 11/20/16 at 17:00 Metoclopramide HCl (Reglan) 5 mg Q6 IV Last administered on 11/22/16 13:02; Admin Dose 5 MG; Start 11/21/16 at 12:00; Stop 11/24/16 at 11:59 ARPITA BLEVINS Nov 22, 2016 14:12
[2016-11-22] MEDS ORDERED: ROCURONIUM 50 MG INJ ONE (14:28)
[2016-11-22] MEDS ORDERED: CEFAZOLIN 1 GM INJ ONE (14:28)
[2016-11-22] MEDS ORDERED: PHENYLephrine (100 MCG/ML) 5ML SYG ONE (14:28)
[2016-11-22] MEDS ORDERED: HYDROCORTISONE 100 MG INJ ONE (14:39)
[2016-11-22] MEDS ORDERED: ONDANSETRON 4 MG INJ ONE (14:56)
[2016-11-22] MEDS ORDERED: KETAMINE 500 MG INJ ONE (14:58)
[2016-11-22] MEDS ORDERED: BUPIVACAINE 0.25% (MPF) 30 ML INJ INJ ONE (14:58)
[2016-11-22] MEDS ORDERED: BUPIVACAINE 0.25% (MPF) 30 ML INJ ONE (14:58)
[2016-11-22] MEDS ORDERED: ACETAMINOPHEN 1000MG/100ML IV 100 ML ONE (15:05)
[2016-11-22] MEDS ORDERED: GLYCOPYRROLATE 0.4 MG INJ ONE ×2 (15:20)
[2016-11-22] MEDS ORDERED: NEOSTIGMINE 3 MG/3 ML SYRINGE ONE ×2 (15:20)
--- NOTE | 2016-11-22 15:40 | OPR ---
Date/Time of Note Date/Time of Note DATE: 11/22/16 TIME: 15:30 Operative Report Procedure Date: Nov 22, 2016 Preoperative Diagnosis fascial dehiscence Postoperative Diagnosis same Operation Performed 1. exploratory laparotomy 2. open incarcerated incisional hernia repair cpt code 97570 3. implantation of biologic matrix for soft tissue reinforcement cpt code 67450 4. therapeutic injection of subcutaneous marcaine cpt code 96343 Surgeon: Debbie CASTANEDA Tubes/Drains 19 mars drain Pt Condition Post Procedure: stable Indications This is a 46-year-old male with a history of autoimmune disorder. He has been on high-level doses of prednisone for approximately a year. He is also been on CellCept. He underwent an open cholecystectomy. CT scan imaging showed a dehiscence of the fascial layer. He is taken back to the OR for fascial closure. Risks alternatives benefits and percent were discussed the patient. Potential complications include but not limited to bleeding infection need for small bowel resection possibility for further surgical intervention were discussed the patient. Patient expressed understanding since the operation. Operative\Procedure Findings Incarcerated small bowel with fascial dehiscence. Patient required stress dose steroids during the operation. Procedure Description Patient taken to the OR and prepped and draped in usual sterile fashion surgical time was performed IV antibiotics are given. Skin alonso were removed. Skin was opened and small bowel was underneath the skin. The small bowel looked viable. Was pink without any evidence of necrosis. There was some serous fluid but no evidence of any active infection or pus. Small bowel is focally run and there is no evidence of any vascular compromise. Small bowel and omentum is reduced. The gallbladder fossa was examined and there is no evidence of bleeding or bile leak. The fascial edges are freshened. The fascia was closed with 2 #1 loop PDS is from medial to lateral lateral to medial. Additionally interrupted #1 Prolene retention sutures were placed periodically through the incision. Additionally underlay mesh with [employer] 8 cell [id number] mesh was placed with interrupted 1 Prolene underneath the incision. The wound was irrigated with irrigation and Betadine. Skin was closed using skin alonso. Local anesthesia was injected throughout the skin incision. Dry dressings were applied. Debbie CASTANEDA Nov 22, 2016 15:40
[2016-11-22] MEDS ORDERED: HYDROmorphONE 0.2 MG/ML PCA ONE (15:54)
[2016-11-22] MEDS ORDERED: OXYCODONE/ACETAMINOPHEN (5/325) TAB PO PRN (16:00)
[2016-11-22] MEDS ORDERED: ACETAMINOPHEN 500 MG TAB PO PRN (16:00)
[2016-11-22] MEDS ORDERED: KETOROLAC 30 MG INJ IV PRN (16:00)
[2016-11-22] MEDS ORDERED: HYDROmorphONE 1 MG/ML SYG IV PRN ×2 (16:00)
[2016-11-22] MEDS ORDERED: ZOLPIDEM 5 MG TAB PO PRN (16:00)
[2016-11-22] MEDS ORDERED: NALOXONE (0.4 MG/ML) INJ IV PRN (16:00)
[2016-11-22] MEDS ORDERED: TRIMETHOBENZAMIDE 100 MG/ML VIAL IM PRN (16:00)
[2016-11-22 16:18] LABS: ADD SCAN DIFF NO
[2016-11-22 16:19] LABS: HEMATOCRIT 35.3 % (42.0-52.0); HEMOGLOBIN 11.1 g/dl (14.0-18.0); MEAN CORPUSCULAR HEMOGLOBIN 22.7 pg (29.0-33.0); MEAN CORPUSCULAR HGB CONC 31.4 g/dl (32.0-37.0); MEAN PLATELET VOLUME 10.1 fl (7.4-10.4); PLATELET COUNT 295 10^3/UL (140-415); RED CELL DISTRIBUTION WIDTH 15.8 % (11.5-14.5); WHITE BLOOD COUNT 12.9 10^3/ul (4.8-10.8)
[2016-11-22] MEDS: HYDROmorphONE 0.2 MG/ML PCA IV SCH (16:25)
[2016-11-22 16:34] LABS: ADD UMIC YES; UR ASCORBIC ACID NEGATIVE (NEGATIVE); UR BILIRUBIN (Dip) NEGATIVE (NEGATIVE); UR BLOOD (Dip) NEGATIVE (NEGATIVE); UR CLARITY CLOUDY (CLEAR); UR COLOR AMBER (YELLOW); UR GLUCOSE (Dip) NEGATIVE (NEGATIVE); UR KETONES (Dip) NEGATIVE (NEGATIVE); UR LEUKOCYTE ESTERASE (Dip) NEGATIVE Leu/ul (NEGATIVE); UR MUCUS FEW /HPF (NONE SEEN); UR NITRITE (Dip) NEGATIVE (NEGATIVE); UR RBC 5 /HPF (0-5); UR SPECIFIC GRAVITY (Dip) 1.032 (1.003-1.030); UR SQUAMOUS EPITHELIAL CELL FEW /HPF (FEW); UR TOTAL PROTEIN (Dip) 2+ mg/dl (NEGATIVE); UR UROBILINOGEN (Dip) NEGATIVE (NEGATIVE)
[2016-11-22 16:38] LABS: ALBUMIN 3.6 g/dl (3.3-4.9); ALBUMIN/GLOBULIN RATIO 1.44; BILIRUBIN,INDIRECT 0.2 mg/dl (0-1.1); BILIRUBIN,TOTAL 0.2 mg/dl (0.2-1.3); CALCIUM 8.5 mg/dl (8.4-10.2); CREATININE 1.24 mg/dl (0.61-1.24); POTASSIUM 4.2 mmol/L (3.5-5.1); TOTAL PROTEIN 6.1 g/dl (6.1-8.1)
[2016-11-22] MEDS: SOD CHLORIDE 0.9% 1,000 ML IV SCH ×2 (16:44→21:16)
[2016-11-22 16:54] LABS: EOSINOPHILS # 0.1 10^3/ul (0.0-0.5); LYMPHOCYTES # 2.3 10^3/ul (0.8-2.9); MONOCYTE # 1.7 10^3/ul (0.3-0.9); NEUTROPHIL # 8.8 10^3/ul (1.6-7.5)
[2016-11-22] MEDS: AMPICILLIN/SULB 3 GM/NS (PMX) 100 ML IVPB SCH ×2 (18:44→23:22)
[2016-11-23] VITALS (10 sets, daily range): BP systolic 131–144; BP diastolic 69–90; PULSE 110–135; RESP 18–20
[2016-11-23] MEDS: HYDROmorphONE 0.2 MG/ML PCA IV SCH ×2 (00:30→13:39)
[2016-11-23] MEDS: SOD CHLORIDE 0.9% 1,000 ML IV SCH ×3 (01:40→18:06)
[2016-11-23] MEDS: AMPICILLIN/SULB 3 GM/NS (PMX) 100 ML IVPB SCH ×3 (05:32→20:20)
[2016-11-23] MEDS: METOCLOPRAMIDE 10 MG INJ IV SCH ×3 (05:33→18:00)
[2016-11-23] MEDS: PANTOPRAZOLE 40 MG INJ IV SCH (05:34)
[2016-11-23] MEDS: Insulin NOVOLOG SS MILD Algorithm (NPO/TPN/ENTERAL FEEDS) SC SCH ×3 (05:36→18:00)
[2016-11-23 07:24] LABS: ADD SCAN DIFF NO
[2016-11-23 07:32] LABS: ABNORMAL IP MESSAGE 1; BASOPHIL # 0.1 10^3/ul (0.0-0.1); BASOPHILS % 0.5 % (0.0-2.0); EOSINOPHILS # 0.1 10^3/ul (0.0-0.5); EOSINOPHILS % 0.7 % (0.0-7.0); HEMATOCRIT 34.4 % (42.0-52.0); HEMOGLOBIN 10.9 g/dl (14.0-18.0); LYMPHOCYTES # 1.4 10^3/ul (0.8-2.9); LYMPHOCYTES % 14.4 % (15.0-51.0); MEAN CORPUSCULAR HGB CONC 31.7 g/dl (32.0-37.0); MEAN CORPUSCULAR VOLUME 72.6 fl (82.0-101.0); MEAN PLATELET VOLUME 10.8 fl (7.4-10.4); MONOCYTE # 1.7 10^3/ul (0.3-0.9); MONOCYTES % 17.3 % (0.0-11.0); NEUTROPHIL # 6.1 10^3/ul (1.6-7.5); NEUTROPHILS % 63.7 % (39.0-77.0); NUCLEATED RED BLOOD CELLS% 0.2 /100WBC (0.0-0.0); PLATELET COUNT 304 10^3/UL (140-415); RED BLOOD COUNT 4.74 10^6/ul (4.70-6.10); RED CELL DISTRIBUTION WIDTH 15.9 % (11.5-14.5); WHITE BLOOD COUNT 9.6 10^3/ul (4.8-10.8)
[2016-11-23 07:50] LABS: ALBUMIN 3.3 g/dl (3.3-4.9); ALBUMIN/GLOBULIN RATIO 1.26; BILIRUBIN,INDIRECT 0.3 mg/dl (0-1.1); BILIRUBIN,TOTAL 0.3 mg/dl (0.2-1.3); CALCIUM 8.5 mg/dl (8.4-10.2); CREATININE 1.23 mg/dl (0.61-1.24); POTASSIUM 4.5 mmol/L (3.5-5.1); TOTAL PROTEIN 5.9 g/dl (6.1-8.1)
[2016-11-23] MEDS: METOPROLOL 25 MG TAB PO SCH (09:00)
[2016-11-23] MEDS ORDERED: METOPROLOL 5 MG INJ IV SCH (09:30)
[2016-11-23] MEDS ORDERED: METHYLPREDNISOLONE 40 MG INJ IV SCH (13:30)
[2016-11-23] MEDS: METHYLPREDNISOLONE 40 MG INJ IV SCH (13:56)
[2016-11-23] MEDS: METOPROLOL 5 MG INJ IV SCH (18:01)
--- NOTE | 2016-11-23 18:10 | PN ---
Date/Time of Note Date/Time of Note DATE: 11/23/16 TIME: 17:45 Assessment/Plan VTE Prophylaxis VTE Prophylaxis Intervention: SCD's Lines/Catheters IV [facility]ter [facility] (from [facility]): Peripheral IV Urinary Cath still in place: Yes Reason Cath still needed: other (indicate) (Patient is not ambulating yet. Also for precise control of intake and output) Assessment/Plan Assessment/Plan This is a 46-year-old gentleman who underwent operation yesterday for fascial dehiscence which has caused incarceration of the small bowel and the fascial wound the original wound was opened up open cholecystectomy. Patient appears a stable urine output is good NG tube was not functioning properly which was adjusted. Heart rate has increased to some extent for about 100 2826. The reason could be dehydration was ordered patient is getting 100 cc IV fluid and urinating 100 cc/h and the weather is warm as well so I think patient is to some extent dehydrated. Going to give a bolus of normal saline also the medical service to reevaluate patient for reason of tachycardia. The other reason is that patient is not taking deep breaths the maximum tidal volume that he is taking it is about 750 cc. Think this for the size of the patient is not good amount encouraged the patient to take deep breath and hold it may be accounting increasing up to 1500 cc today. He can have ice chips. We will increase his IV maintenance 225 cc/h. We will give a bolus of 500 cc normal saline over 2 hours. Encouraged to move his toes and ankles and knees and the foot on the bed was also apply sequential compression devices on the legs. Overall appears that the patient is a stable so far. We will let him have some ice chips while make sure that the N G-tube is functioning Subjective 24 Hr Interval Summary Free Text/Dictation This is Dr. Villasenor dictating progress note follow-up on patient Mr. Reeder last name [facility] room 8521 postop day #1 status post repair of the wound dehisced fascial dehiscence and repair of the incarcerated incisional hernia with a re-mesh reinforcement I see this patient per Dr. Jones's request. Patient states that his heart rate is up and he complains of thirst otherwise no other complaint states that the pain is under control with AGER OPERATOR. States that he has passed gas and has had bowel movement today. Exam/Review of Systems Vital Signs Vitals Vital Signs Date Time Temp Pulse Resp B/P Pulse Ox O2 Delivery O2 Flow Rate FiO2 11/23/16 16:30 126 11/23/16 15:54 98.6 18 137/82 96 11/23/16 08:15 Room Air 11/22/16 17:17 2.0 Intake and Output 11/22/16 11/22/16 11/23/16 15:00 23:00 07:00 Intake Total 0 ml 600 ml 900 ml Output Total 0 ml 920 ml 465 ml Balance 0 ml -320 ml 435 ml Exam Objective patient is awake alert oriented 3 vital sign is as follows temperature 98.6. Heart rate 121. Respiration 18 pressure 177/82. Saturation 96% room air. WBC today 9600 with 63% neutrophils. Hemoglobin 10.9 hematocrit 34.4. Platelet 304. Stefano-Hutton drain has drained 145 cc since operation serosanguineous fluid. Urine since 8 AM today till 4 PM 800 cc namely 100 cc/ h. IV fluid maintenance is 100 cc normal saline per hour. NG tube connected to the suction but the suction was examined it was not working manipulated eventually it started functioning some air and fluid came out from the stomach patient stated that feels better the pressure in the epigastrium is relieved now. Heart is regular. Lungs decreased breathing sounds at both bases. Abdomen is soft. Extremities there is no calf tenderness. Encouraged to apply sequential compression device. Results Result Diagram: 11/23/16 0538 11/23/16 0538 Results 24 hrs Laboratory Tests Test 11/22/16 17:55 11/22/16 23:19 11/23/16 05:31 11/23/16 05:38 Bedside Glucose 128 130 115 White Blood Count 9.6 # Red Blood Count 4.74 Hemoglobin 10.9 L Hematocrit 34.4 L Mean Corpuscular Volume 72.6 L Mean Corpuscular Hemoglobin 23.0 L Mean Corpuscular Hemoglobin Concent 31.7 L Red Cell Distribution Width 15.9 H Platelet Count 304 Mean Platelet Volume 10.8 H Neutrophils % 63.7 Lymphocytes % 14.4 L Monocytes % 17.3 H Eosinophils % 0.7 Basophils % 0.5 Nucleated Red Blood Cells % 0.2 H Neutrophils # 6.1 Lymphocytes # 1.4 Monocytes # 1.7 H Eosinophils # 0.1 Basophils # 0.1 Nucleated Red Blood Cells # 0.0 Sodium Level 141 Potassium Level 4.5 Chloride Level 101 Carbon Dioxide Level 27 Anion Gap 18 H Blood Urea Nitrogen 16 Creatinine 1.23 Glucose Level 110 Calcium Level 8.5 Total Bilirubin 0.3 Direct Bilirubin 0.00 Indirect Bilirubin 0.3 Aspartate Amino Transf (AST/SGOT) 37 Alanine Aminotransferase (ALT/SGPT) 97 H Alkaline Phosphatase 81 Total Protein 5.9 L Albumin 3.3 Globulin 2.60 Albumin/Globulin Ratio 1.26 Test 11/23/16 12:22 Bedside Glucose 118 Medications Medications Current Medications Morphine Sulfate (morphine) 2 mg Q2H PRN IV PAIN LEVEL 6-10 Last administered on 11/21/16 21:02; Admin Dose 2 MG; Start 11/14/16 at 12:00 Miscellaneous Information 1 ea NOTE XX ; Start 11/14/16 at 13:30 Glucose (Glutose) 15 gm Q15M PRN PO DECREASED GLUCOSE; Start 11/14/16 at 13:30 Glucose (Glutose) 22.5 gm Q15M PRN PO DECREASED GLUCOSE; Start 11/14/16 at 13:30 Dextrose (D50w Syringe) 25 ml Q15M PRN IV DECREASED GLUCOSE; Start 11/14/16 at 13:30 Dextrose (D50w Syringe) 50 ml Q15M PRN IV DECREASED GLUCOSE; Start 11/14/16 at 13:30 Glucagon (Glucagen) 1 mg Q15M PRN IM DECREASED GLUCOSE; Start 11/14/16 at 13:30 Glucose (Glutose) 15 gm Q15M PRN BUCCAL DECREASED GLUCOSE; Start 11/14/16 at 13: 30 Vitamin A/Vitamin D (Vitamin A & D Oint) 1 applic DAILY PRN TOP dryness Last administered on 11/15/16 11:48; Admin Dose 1 APPLIC; Start 11/15/16 at 11:00 Simethicone (Mylicon) 80 mg Q6H PRN PO DISTENSION/GAS/BLOATING Last administered on 11/16/16 21:00; Admin Dose 80 MG; Start 11/16/16 at 11:30 Promethazine HCl (Phenergan) 25 mg Q6H PRN PO NAUSEA AND/OR VOMITING Last administered on 11/19/16 21:52; Admin Dose 25 MG; Start 11/16/16 at 23:00 Metoprolol Tartrate (Lopressor) 25 mg BID PO Last administered on 11/20/16 08: 02; Admin Dose 25 MG; Start 11/18/16 at 09:00; Status Future Hold Hydralazine HCl (Apresoline) 10 mg Q4H PRN IV SBP>160 Last administered on 11/17 23:42; Admin Dose 10 MG; Start 11/17/16 at 23:30 Acetaminophen (Tylenol Tab) 650 mg Q4H PRN PO PAIN AND OR ELEVATED TEMP Last administered on 11/20/16 08:02; Admin Dose 650 MG; Start 11/18/16 at 13:00 Insulin Aspart (Novolog Insulin Pen) (Adult SC Insulin - Mild Algorithm)... Q6 SC ; Start 11/18/16 at 18:08 Pantoprazole (Protonix Iv) 40 mg DAILY@06 IV Last administered on 11/23/16 05: 34; Admin Dose 40 MG; Start 11/21/16 at 06:00 Metoclopramide HCl 5 mg 5 mg Q6 IV Last administered on 11/23/16 12:24; Admin Dose 5 MG; Start 11/21/16 at 12:00; Stop 11/24/16 at 11:59 Ampicillin Sodium/ Sulbactam Sodium 100 ml @ 200 mls/hr Q6 IVPB Last administered on 11/23/16 13:56; Admin Dose 200 MLS/HR; Start 11/22/16 at 18:00 Sodium Chloride (NS) 1,000 ml @ 125 mls/hr Q8H IV Last administered on 10:10; Admin Dose 100 MLS/HR; Start 11/22/16 at 15:40 Naloxone HCl (Narcan) 0.2 mg PRN PRN IV DECREASED REPIRATORY RATE; Start at 16:00 Hydromorphone HCl (Dilaudid AGER OPERATOR) Q4PCA IV Last administered on 11/23/16 13:39 ; Admin Dose 6 MG; Start 11/22/16 at 16:00 Acetaminophen (Tylenol Tab) 500 mg Q4H PRN PO PAIN LEVEL 1-5; Start 11/22/16 at 16:00 Oxycodone/ Acetaminophen (Percocet (5/ 325)) 1 tab Q4H PRN PO PAIN LEVEL 1-5; Start 11/22/16 at 16:00 Oxycodone/ Acetaminophen (Percocet (5/ 325)) 2 tab Q4H PRN PO PAIN LEVEL 6-10; Start 11/22/16 at 16:00 Hydromorphone HCl (Dilaudid) 0.2 mg Q4H PRN IV PAIN LEVEL 1-5; Start 11/22/16 at 16:00 Hydromorphone HCl (Dilaudid) 0.4 mg Q4H PRN IV PAIN LEVEL 6-10; Start 11/22/16 at 16:00 Ketorolac Tromethamine (Toradol) 30 mg Q6H PRN IV PAIN; Start 11/22/16 at 16:00 ; Stop 11/25/16 at 15:59 Ondansetron HCl (Zofran Inj) 4 mg Q6H PRN IV NAUSEA AND/OR VOMITING; Start at 16:00 Trimethobenzamide HCl (Tigan) 200 mg Q8H PRN IM NAUSEA AND/OR VOMITING; Start 11/22/16 at 16:00 Diphenhydramine HCl (Benadryl) 25 mg Q6H PRN IV ITCHING; Start 11/22/16 at 16: 00 Miscellaneous Information 1. Discontinue AGER OPERATOR... AGER OPERATOR IV ; Start 11/22/16 at 16:00 Metoprolol Tartrate (Lopressor) 5 mg Q6 IV ; Start 11/23/16 at 18:00 Methylprednisolone Sodium Succinate (Solu-Medrol) 20 mg QAM IV Last administered on 11/23/16t 13:56; Admin Dose 20 MG; Start 11/23/16 at 13:30 LUZ VILLASENOR MD Nov 23, 2016 17:58
--- NOTE | 2016-11-23 18:27 | PN ---
Date/Time of Note Date/Time of Note DATE: 11/23/16 TIME: 18:24 Assessment/Plan VTE Prophylaxis VTE Prophylaxis Intervention: other Lines/Catheters IV C[facility] Type ([facility] Peripheral IV Urinary Cath still in place: Yes Assessment/Plan Assessment/Plan -Fascial dehiscence per CT. SP possible small bowel resection by Dr Reyes on 11/23 - PER SURGERY - JOB CAPTAIN Dilaudid - effective Hx of [id number] disease - an autoimmune disease - patient is on high dose prednisone for one year with resultant severe weight gain and diabetes. - on cellcept to suppress the immune system. -Symptomatic cholelithiasis, status post open cholecystectomy and liver biopsy. -Postop ileus, patient refused NG tube -Small gallbladder bed bile leak vs cystic duct leak with adequate drainage from drain, continue to monitor, possible ERCP with stent placement if the output does not improve in a couple of days -Prediabetes, continue to monitor blood sugar every 6 hours with NovoLog sliding sliding scale coverage. -Autoimmune disorder -Obesity with BMI of 43.4 Further recommendations based on clinical course. Plan of care discussed with Dr. Nesbitt. Exam/Review of Systems Vital Signs Vitals Vital Signs Date Time Temp Pulse Resp B/P Pulse Ox O2 Delivery O2 Flow Rate FiO2 11/23/16 16:30 126 11/23/16 15:54 98.6 18 137/82 96 11/23/16 08:15 Room Air 11/22/16 17:17 2.0 Intake and Output 11/22/16 11/22/16 11/23/16 15:00 23:00 07:00 Intake Total 0 ml 600 ml 900 ml Output Total 0 ml 920 ml 465 ml Balance 0 ml -320 ml 435 ml Exam NGT connected to Low Intermittent suction. npo, IVF. dw staff Constitutional: alert, oriented, well developed Respiratory: clear to auscultation, normal air movement Cardiovascular: nl pulses, regular rate and rhythm Gastrointestinal: other, soft Musculoskeletal: nl extremities to inspection Extremities: normal pulses Neurological: nl mental status Results Result Diagram: 11/23/16 0538 11/23/16 0538 Results 24 hrs Laboratory Tests Test 11/22/16 23:19 11/23/16 05:31 11/23/16 05:38 11/23/16 12:22 Bedside Glucose 130 115 118 White Blood Count 9.6 # Red Blood Count 4.74 Hemoglobin 10.9 L Hematocrit 34.4 L Mean Corpuscular Volume 72.6 L Mean Corpuscular Hemoglobin 23.0 L Mean Corpuscular Hemoglobin Concent 31.7 L Red Cell Distribution Width 15.9 H Platelet Count 304 Mean Platelet Volume 10.8 H Neutrophils % 63.7 Lymphocytes % 14.4 L Monocytes % 17.3 H Eosinophils % 0.7 Basophils % 0.5 Nucleated Red Blood Cells % 0.2 H Neutrophils # 6.1 Lymphocytes # 1.4 Monocytes # 1.7 H Eosinophils # 0.1 Basophils # 0.1 Nucleated Red Blood Cells # 0.0 Sodium Level 141 Potassium Level 4.5 Chloride Level 101 Carbon Dioxide Level 27 Anion Gap 18 H Blood Urea Nitrogen 16 Creatinine 1.23 Glucose Level 110 Calcium Level 8.5 Total Bilirubin 0.3 Direct Bilirubin 0.00 Indirect Bilirubin 0.3 Aspartate Amino Transf (AST/SGOT) 37 Alanine Aminotransferase (ALT/SGPT) 97 H Alkaline Phosphatase 81 Total Protein 5.9 L Albumin 3.3 Globulin 2.60 Albumin/Globulin Ratio 1.26 Test 11/23/16 17:58 Bedside Glucose 136 Medications Medications Current Medications Morphine Sulfate (morphine) 2 mg Q2H PRN IV PAIN LEVEL 6-10 Last administered on 11/21/16 21:02; Admin Dose 2 MG; Start 11/14/16 at 12:00 Miscellaneous Information 1 ea NOTE XX ; Start 11/14/16 at 13:30 Glucose (Glutose) 15 gm Q15M PRN PO DECREASED GLUCOSE; Start 11/14/16 at 13:30 Glucose (Glutose) 22.5 gm Q15M PRN PO DECREASED GLUCOSE; Start 11/14/16 at 13:30 Dextrose (D50w Syringe) 25 ml Q15M PRN IV DECREASED GLUCOSE; Start 11/14/16 at 13:30 Dextrose (D50w Syringe) 50 ml Q15M PRN IV DECREASED GLUCOSE; Start 11/14/16 at 13:30 Glucagon (Glucagen) 1 mg Q15M PRN IM DECREASED GLUCOSE; Start 11/14/16 at 13:30 Glucose (Glutose) 15 gm Q15M PRN BUCCAL DECREASED GLUCOSE; Start 11/14/16 at 13: 30 Vitamin A/Vitamin D (Vitamin A & D Oint) 1 applic DAILY PRN TOP dryness Last administered on 11/15/16 11:48; Admin Dose 1 APPLIC; Start 11/15/16 at 11:00 Simethicone (Mylicon) 80 mg Q6H PRN PO DISTENSION/GAS/BLOATING Last administered on 11/16/16 21:00; Admin Dose 80 MG; Start 11/16/16 at 11:30 Promethazine HCl (Phenergan) 25 mg Q6H PRN PO NAUSEA AND/OR VOMITING Last administered on 11/19/16 21:52; Admin Dose 25 MG; Start 11/16/16 at 23:00 Metoprolol Tartrate (Lopressor) 25 mg BID PO Last administered on 11/20/16 08: 02; Admin Dose 25 MG; Start 11/18/16 at 09:00; Status Future Hold Hydralazine HCl (Apresoline) 10 mg Q4H PRN IV SBP>160 Last administered on 11/17 23:42; Admin Dose 10 MG; Start 11/17/16 at 23:30 Acetaminophen (Tylenol Tab) 650 mg Q4H PRN PO PAIN AND OR ELEVATED TEMP Last administered on 11/20/16 08:02; Admin Dose 650 MG; Start 11/18/16 at 13:00 Insulin Aspart (Novolog Insulin Pen) (Adult SC Insulin - Mild Algorithm)... Q6 SC ; Start 11/18/16 at 18:08 Pantoprazole (Protonix Iv) 40 mg DAILY@06 IV Last administered on 11/23/16 05: 34; Admin Dose 40 MG; Start 11/21/16 at 06:00 Metoclopramide HCl 5 mg 5 mg Q6 IV Last administered on 11/23/16 18:00; Admin Dose 5 MG; Start 11/21/16 at 12:00; Stop 11/24/16 at 11:59 Ampicillin Sodium/ Sulbactam Sodium 100 ml @ 200 mls/hr Q6 IVPB Last administered on 11/23/16 13:56; Admin Dose 200 MLS/HR; Start 11/22/16 at 18:00 Sodium Chloride (NS) 1,000 ml @ 125 mls/hr Q8H IV Last administered on 18:06; Admin Dose 125 MLS/HR; Start 11/22/16 at 15:40 Naloxone HCl (Narcan) 0.2 mg PRN PRN IV DECREASED REPIRATORY RATE; Start at 16:00 Hydromorphone HCl (Dilaudid JOB CAPTAIN) Q4PCA IV Last administered on 11/23/16 13:39 ; Admin Dose 6 MG; Start 11/22/16 at 16:00 Acetaminophen (Tylenol Tab) 500 mg Q4H PRN PO PAIN LEVEL 1-5; Start 11/22/16 at 16:00 Oxycodone/ Acetaminophen (Percocet (5/ 325)) 1 tab Q4H PRN PO PAIN LEVEL 1-5; Start 11/22/16 at 16:00 Oxycodone/ Acetaminophen (Percocet (5/ 325)) 2 tab Q4H PRN PO PAIN LEVEL 6-10; Start 11/22/16 at 16:00 Hydromorphone HCl (Dilaudid) 0.2 mg Q4H PRN IV PAIN LEVEL 1-5; Start 11/22/16 at 16:00 Hydromorphone HCl (Dilaudid) 0.4 mg Q4H PRN IV PAIN LEVEL 6-10; Start 11/22/16 at 16:00 Ketorolac Tromethamine (Toradol) 30 mg Q6H PRN IV PAIN; Start 11/22/16 at 16:00 ; Stop 11/25/16 at 15:59 Ondansetron HCl (Zofran Inj) 4 mg Q6H PRN IV NAUSEA AND/OR VOMITING; Start at 16:00 Trimethobenzamide HCl (Tigan) 200 mg Q8H PRN IM NAUSEA AND/OR VOMITING; Start 11/22/16 at 16:00 Diphenhydramine HCl (Benadryl) 25 mg Q6H PRN IV ITCHING; Start 11/22/16 at 16: 00 Miscellaneous Information 1. Discontinue JOB CAPTAIN... JOB CAPTAIN IV ; Start 11/22/16 at 16:00 Metoprolol Tartrate (Lopressor) 5 mg Q6 IV Last administered on 11/23/16 18:01 ; Admin Dose 5 MG; Start 11/23/16 at 18:00 Methylprednisolone Sodium Succinate (Solu-Medrol) 20 mg QAM IV Last administered on 11/23/16 13:56; Admin Dose 20 MG; Start 11/23/16 at 13:30 ARPITA BLEVINS Nov 23, 2016 18:27
[2016-11-24] VITALS (11 sets, daily range): BP systolic 120–143; BP diastolic 62–89; PULSE 86–109; RESP 18–19
[2016-11-24] MEDS: METOCLOPRAMIDE 10 MG INJ IV SCH ×2 (00:09→06:10)
[2016-11-24] MEDS: METOPROLOL 5 MG INJ IV SCH ×5 (00:11→23:56)
[2016-11-24] MEDS: SOD CHLORIDE 0.9% 1,000 ML IV SCH ×3 (02:09→21:49)
[2016-11-24] MEDS: Insulin NOVOLOG SS MILD Algorithm (NPO/TPN/ENTERAL FEEDS) SC SCH ×4 (06:00→17:36)
[2016-11-24] MEDS: AMPICILLIN/SULB 3 GM/NS (PMX) 100 ML IVPB SCH ×5 (06:10→23:52)
[2016-11-24] MEDS: PANTOPRAZOLE 40 MG INJ IV SCH (06:10)
[2016-11-24 07:30] LABS: ADD SCAN DIFF NO
[2016-11-24 07:36] LABS: ABNORMAL IP MESSAGE 1; BASOPHIL # 0.1 10^3/ul (0.0-0.1); BASOPHILS % 0.4 % (0.0-2.0); EOSINOPHILS # 0.1 10^3/ul (0.0-0.5); EOSINOPHILS % 0.9 % (0.0-7.0); HEMATOCRIT 29.6 % (42.0-52.0); HEMOGLOBIN 9.4 g/dl (14.0-18.0); LYMPHOCYTES # 1.8 10^3/ul (0.8-2.9); LYMPHOCYTES % 14.9 % (15.0-51.0); MEAN CORPUSCULAR HEMOGLOBIN 22.7 pg (29.0-33.0); MEAN CORPUSCULAR HGB CONC 31.8 g/dl (32.0-37.0); MEAN CORPUSCULAR VOLUME 71.5 fl (82.0-101.0); MEAN PLATELET VOLUME 10.7 fl (7.4-10.4); MONOCYTE # 1.7 10^3/ul (0.3-0.9); MONOCYTES % 14.6 % (0.0-11.0); NEUTROPHIL # 7.5 10^3/ul (1.6-7.5); NEUTROPHILS % 63.3 % (39.0-77.0); PLATELET COUNT 320 10^3/UL (140-415); RED BLOOD COUNT 4.14 10^6/ul (4.70-6.10); RED CELL DISTRIBUTION WIDTH 15.4 % (11.5-14.5); WHITE BLOOD COUNT 11.8 10^3/ul (4.8-10.8)
[2016-11-24 08:34] LABS: CALCIUM 8.3 mg/dl (8.4-10.2); CREATININE 1.02 mg/dl (0.61-1.24); POTASSIUM 4.4 mmol/L (3.5-5.1)
[2016-11-24] MEDS: METHYLPREDNISOLONE 40 MG INJ IV SCH (08:54)
[2016-11-24 09:17] LABS: THYROID STIMULATING HORMONE 4.46 MIU/L (0.465-4.680)
--- NOTE | 2016-11-24 11:30 | PN ---
DATE: 11/15/2016 SUBJECTIVE DATA: Postop day number 1, status post laparoscopic cholecystectomy attempted, conversion to open because of bleeding field. He does not have any significant complaints. He has been out of bed. A little weak. No nausea. No vomiting. Has urinated. No fever. No chills. OBJECTIVE DATA: Awake and alert. Vital signs: Temperature 98.7, heart rate 89, respirations 20, blood pressure 137/83, saturation 100 percent on 3 liters nasal cannula. The Trell drain since 7 o'clock in the morning until now at 6 p.m., has drained 140 mL of semi-bloody fluid. The heart is regular. The abdomen is soft. There is no calf tenderness. LABORATORY AND DIAGNOSTIC DATA: WBC 14.3 with 79 percent neutrophils, hemoglobin 11, hematocrit 35. On admission, hemoglobin 11.7, hematocrit 38.2. Chemistry: Blood glucose 448, and then the following POC is 140 and 130 respectively. Bilirubin is normal 0.3 total. AST elevated 178. ALT 229. Alkaline phosphatase 42. ASSESSMENT AND PLAN: This is a 46-year-old obese patient who is status post laparotomy and cholecystectomy. The patient is postop day number 1, is stable, and there is a Trell drain which is draining semi-bloody fluid but has been only 140 mL in the past 12 hours. Plan: Continue current care. Repeat CBC tomorrow morning. Dictated By: Cheo Kiser MD /randal/deborah /Document#: [id number]
--- NOTE | 2016-11-24 12:03 | PN ---
Date/Time of Note Date/Time of Note DATE: 11/24/16 TIME: 12:01 Assessment/Plan VTE Prophylaxis VTE Prophylaxis Intervention: SCD's Lines/Catheters IV Catheter Type (from Nrs): Peripheral IV Urinary Cath still in place: Yes Reason Cath still needed: other (indicate) Assessment/Plan Chief Complaint/Hosp Course s/p lap gustavo to open for difficult visualization and morbid obesity Problems: Assessment/Plan under went fascial closure for dehiscence and herniation, doing well now, having flatus no nausea will d/c NGT Subjective 24 Hr Interval Summary Free Text/Dictation had plenty of flatus, ngt drainage no longer bilious just serous Exam/Review of Systems Vital Signs Vitals Vital Signs Date Time Temp Pulse Resp B/P Pulse Ox O2 Delivery O2 Flow Rate FiO2 11/24/16 11:41 98.6 60 18 139/81 96 11/23/16 08:15 Room Air 11/22/16 17:17 2.0 Intake and Output 11/23/16 11/23/16 11/24/16 15:00 23:00 07:00 Intake Total 1200 ml 1650 ml Output Total 430 ml 1650 ml Balance 770 ml 0 ml Exam c/d/i Results Result Diagram: 11/24/16 0634 11/24/16 0634 Results 24 hrs Laboratory Tests Test 11/23/16 12:22 11/23/16 17:58 11/24/16 00:06 11/24/16 06:08 Bedside Glucose 118 136 101 86 Test 11/24/16 06:34 White Blood Count 11.8 #H Red Blood Count 4.14 L Hemoglobin 9.4 L Hematocrit 29.6 L Mean Corpuscular Volume 71.5 L Mean Corpuscular Hemoglobin 22.7 L Mean Corpuscular Hemoglobin Concent 31.8 L Red Cell Distribution Width 15.4 H Platelet Count 320 Mean Platelet Volume 10.7 H Neutrophils % 63.3 Lymphocytes % 14.9 L Monocytes % 14.6 H Eosinophils % 0.9 Basophils % 0.4 Nucleated Red Blood Cells % 0.0 Neutrophils # 7.5 Lymphocytes # 1.8 Monocytes # 1.7 H Eosinophils # 0.1 Basophils # 0.1 Nucleated Red Blood Cells # 0.0 Differential Comment AUTO w/SCAN Sodium Level 137 Potassium Level 4.4 Chloride Level 103 Carbon Dioxide Level 24 Anion Gap 14 Blood Urea Nitrogen 14 Creatinine 1.02 Glucose Level 93 Calcium Level 8.3 L Thyroid Stimulating Hormone (TSH) 4.460 Free Thyroxine 1.34 Medications Medications Current Medications Morphine Sulfate (morphine) 2 mg Q2H PRN IV PAIN LEVEL 6-10 Last administered on 11/21/16 21:02; Admin Dose 2 MG; Start 11/14/16 at 12:00 Miscellaneous Information 1 ea NOTE XX ; Start 11/14/16 at 13:30 Glucose (Glutose) 15 gm Q15M PRN PO DECREASED GLUCOSE; Start 11/14/16 at 13:30 Glucose (Glutose) 22.5 gm Q15M PRN PO DECREASED GLUCOSE; Start 11/14/16 at 13:30 Dextrose (D50w Syringe) 25 ml Q15M PRN IV DECREASED GLUCOSE; Start 11/14/16 at 13:30 Dextrose (D50w Syringe) 50 ml Q15M PRN IV DECREASED GLUCOSE; Start 11/14/16 at 13:30 Glucagon (Glucagen) 1 mg Q15M PRN IM DECREASED GLUCOSE; Start 11/14/16 at 13:30 Glucose (Glutose) 15 gm Q15M PRN BUCCAL DECREASED GLUCOSE; Start 11/14/16 at 13: 30 Vitamin A/Vitamin D (Vitamin A & D Oint) 1 applic DAILY PRN TOP dryness Last administered on 11/15/16 11:48; Admin Dose 1 APPLIC; Start 11/15/16 at 11:00 Simethicone (Mylicon) 80 mg Q6H PRN PO DISTENSION/GAS/BLOATING Last administered on 11/16/16 21:00; Admin Dose 80 MG; Start 11/16/16 at 11:30 Promethazine HCl (Phenergan) 25 mg Q6H PRN PO NAUSEA AND/OR VOMITING Last administered on 11/19/16 21:52; Admin Dose 25 MG; Start 11/16/16 at 23:00 Metoprolol Tartrate (Lopressor) 25 mg BID PO Last administered on 11/20/16 08: 02; Admin Dose 25 MG; Start 11/18/16 at 09:00; Status Future Hold Hydralazine HCl (Apresoline) 10 mg Q4H PRN IV SBP>160 Last administered on 11/17 23:42; Admin Dose 10 MG; Start 11/17/16 at 23:30 Acetaminophen (Tylenol Tab) 650 mg Q4H PRN PO PAIN AND OR ELEVATED TEMP Last administered on 11/20/16 08:02; Admin Dose 650 MG; Start 11/18/16 at 13:00 Insulin Aspart (Novolog Insulin Pen) (Adult SC Insulin - Mild Algorithm)... Q6 SC ; Start 11/18/16 at 18:08 Pantoprazole 40 mg 40 mg DAILY@06 IV Last administered on 11/24/16 06:10; Admin Dose 40 MG; Start 11/21/16 at 06:00 Ampicillin Sodium/ Sulbactam Sodium 100 ml @ 200 mls/hr Q6 IVPB Last administered on 11/24/16 06:10; Admin Dose 200 MLS/HR; Start 11/22/16 at 18:00 Sodium Chloride (NS) 1,000 ml @ 125 mls/hr Q8H IV Last administered on 02:09; Admin Dose 125 MLS/HR; Start 11/22/16 at 15:40 Naloxone HCl (Narcan) 0.2 mg PRN PRN IV DECREASED REPIRATORY RATE; Start at 16:00 Hydromorphone HCl (Dilaudid CENTRIFUGAL MACHINE TENDER) Q4PCA IV Last administered on 11/23/16 13:39 ; Admin Dose 6 MG; Start 11/22/16 at 16:00 Acetaminophen (Tylenol Tab) 500 mg Q4H PRN PO PAIN LEVEL 1-5; Start 11/22/16 at 16:00 Oxycodone/ Acetaminophen (Percocet (5/ 325)) 1 tab Q4H PRN PO PAIN LEVEL 1-5; Start 11/22/16 at 16:00 Oxycodone/ Acetaminophen (Percocet (5/ 325)) 2 tab Q4H PRN PO PAIN LEVEL 6-10; Start 11/22/16 at 16:00 Hydromorphone HCl (Dilaudid) 0.2 mg Q4H PRN IV PAIN LEVEL 1-5; Start 11/22/16 at 16:00 Hydromorphone HCl (Dilaudid) 0.4 mg Q4H PRN IV PAIN LEVEL 6-10; Start 11/22/16 at 16:00 Ketorolac Tromethamine (Toradol) 30 mg Q6H PRN IV PAIN; Start 11/22/16 at 16:00 ; Stop 11/25/16 at 15:59 Ondansetron HCl (Zofran Inj) 4 mg Q6H PRN IV NAUSEA AND/OR VOMITING; Start at 16:00 Trimethobenzamide HCl (Tigan) 200 mg Q8H PRN IM NAUSEA AND/OR VOMITING; Start 11/22/16 at 16:00 Diphenhydramine HCl (Benadryl) 25 mg Q6H PRN IV ITCHING; Start 11/22/16 at 16: 00 Miscellaneous Information 1. Discontinue CENTRIFUGAL MACHINE TENDER... CENTRIFUGAL MACHINE TENDER IV ; Start 11/22/16 at 16:00 Metoprolol Tartrate (Lopressor) 5 mg Q6 IV Last administered on 11/24/16 06:11 ; Admin Dose 5 MG; Start 11/23/16 at 18:00 Methylprednisolone Sodium Succinate (Solu-Medrol) 20 mg QAM IV Last administered on 11/24/16 08:54; Admin Dose 20 MG; Start 11/23/16 at 13:30 Debbie CASTANEDA Nov 24, 2016 12:03
--- NOTE | 2016-11-24 15:41 | PN ---
Date/Time of Note Date/Time of Note DATE: 11/24/16 TIME: 15:32 Assessment/Plan VTE Prophylaxis VTE Prophylaxis Intervention: SCD's Lines/Catheters IV [facility]ter Type (from [facility] Saline Lock Urinary Cath still in place: Yes Reason Cath still needed: urinary retention Assessment/Plan Chief Complaint/Hosp Course Patient was able to have bowel movement, positive flatus, continue to monitor on telemetry for tachycardia, heart rate varies from 60-106. Assessment/Plan -Symptomatic cholelithiasis, status post open cholecystectomy and liver biopsy + steatohepatitis 11/14. S/pt fascial closure for dehiscence and incisional hernia repair on 11/[address] Reyes general surgery. -Postop ileus, resolving -Small gallbladder bed bile leak vs cystic duct leak with adequate drainage from drain, continue to monitor, possible ERCP with stent placement if the output does not improve in a couple of days -Prediabetes, continue to monitor blood sugar every 6 hours with NovoLog sliding sliding scale coverage. -Fatty liver -Yoeb-Kdsrylpa-Ekmroh syndrome, Autoimmune disorder, resume patient home medication when patient recovered from surgery. -Obesity with BMI of 43.4 Further recommendations based on clinical course. Plan of care discussed with Dr. Nesbitt. Problems: Exam/Review of Systems Vital Signs Vitals Vital Signs Date Time Temp Pulse Resp B/P Pulse Ox O2 Delivery O2 Flow Rate FiO2 11/24/16 13:23 16 11/24/16 12:18 105 11/24/16 11:41 98.6 139/81 96 11/23/16 08:15 Room Air 11/22/16 17:17 2.0 Intake and Output 11/23/16 11/23/16 11/24/16 15:00 23:00 07:00 Intake Total 1200 ml 1650 ml Output Total 430 ml 1650 ml Balance 770 ml 0 ml Exam Constitutional: alert, oriented Head: normocephalic Neck: supple Respiratory: normal air movement Cardiovascular: nl pulses Gastrointestinal: other (Status post surgery), soft Extremities: normal pulses Neurological: nl mental status Results Result Diagram: 11/24/16 0634 11/24/16 0634 Results 24 hrs Laboratory Tests Test 11/23/16 17:58 11/24/16 00:06 11/24/16 06:08 11/24/16 06:34 Bedside Glucose 136 101 86 White Blood Count 11.8 #H Red Blood Count 4.14 L Hemoglobin 9.4 L Hematocrit 29.6 L Mean Corpuscular Volume 71.5 L Mean Corpuscular Hemoglobin 22.7 L Mean Corpuscular Hemoglobin Concent 31.8 L Red Cell Distribution Width 15.4 H Platelet Count 320 Mean Platelet Volume 10.7 H Neutrophils % 63.3 Lymphocytes % 14.9 L Monocytes % 14.6 H Eosinophils % 0.9 Basophils % 0.4 Nucleated Red Blood Cells % 0.0 Neutrophils # 7.5 Lymphocytes # 1.8 Monocytes # 1.7 H Eosinophils # 0.1 Basophils # 0.1 Nucleated Red Blood Cells # 0.0 Differential Comment AUTO w/SCAN Sodium Level 137 Potassium Level 4.4 Chloride Level 103 Carbon Dioxide Level 24 Anion Gap 14 Blood Urea Nitrogen 14 Creatinine 1.02 Glucose Level 93 Calcium Level 8.3 L Thyroid Stimulating Hormone (TSH) 4.460 Free Thyroxine 1.34 Test 11/24/16 12:22 Bedside Glucose 129 Medications Medications Current Medications Morphine Sulfate (morphine) 2 mg Q2H PRN IV PAIN LEVEL 6-10 Last administered on 11/21/16 21:02; Admin Dose 2 MG; Start 11/14/16 at 12:00 Miscellaneous Information 1 ea NOTE XX ; Start 11/14/16 at 13:30 Glucose (Glutose) 15 gm Q15M PRN PO DECREASED GLUCOSE; Start 11/14/16 at 13:30 Glucose (Glutose) 22.5 gm Q15M PRN PO DECREASED GLUCOSE; Start 11/14/16 at 13:30 Dextrose (D50w Syringe) 25 ml Q15M PRN IV DECREASED GLUCOSE; Start 11/14/16 at 13:30 Dextrose (D50w Syringe) 50 ml Q15M PRN IV DECREASED GLUCOSE; Start 11/14/16 at 13:30 Glucagon (Glucagen) 1 mg Q15M PRN IM DECREASED GLUCOSE; Start 11/14/16 at 13:30 Glucose (Glutose) 15 gm Q15M PRN BUCCAL DECREASED GLUCOSE; Start 11/14/16 at 13: 30 Vitamin A/Vitamin D (Vitamin A & D Oint) 1 applic DAILY PRN TOP dryness Last administered on 11/15/16 11:48; Admin Dose 1 APPLIC; Start 11/15/16 at 11:00 Simethicone (Mylicon) 80 mg Q6H PRN PO DISTENSION/GAS/BLOATING Last administered on 11/16/16 21:00; Admin Dose 80 MG; Start 11/16/16 at 11:30 Promethazine HCl (Phenergan) 25 mg Q6H PRN PO NAUSEA AND/OR VOMITING Last administered on 11/19/16 21:52; Admin Dose 25 MG; Start 11/16/16 at 23:00 Metoprolol Tartrate (Lopressor) 25 mg BID PO Last administered on 11/20/16 08: 02; Admin Dose 25 MG; Start 11/18/16 at 09:00; Status Future Hold Hydralazine HCl (Apresoline) 10 mg Q4H PRN IV SBP>160 Last administered on 11/17 23:42; Admin Dose 10 MG; Start 11/17/16 at 23:30 Acetaminophen (Tylenol Tab) 650 mg Q4H PRN PO PAIN AND OR ELEVATED TEMP Last administered on 11/20/16 08:02; Admin Dose 650 MG; Start 11/18/16 at 13:00 Insulin Aspart (Novolog Insulin Pen) (Adult SC Insulin - Mild Algorithm)... Q6 SC ; Start 11/18/16 at 18:08 Pantoprazole 40 mg 40 mg DAILY@06 IV Last administered on 11/24/16 06:10; Admin Dose 40 MG; Start 11/21/16 at 06:00 Ampicillin Sodium/ Sulbactam Sodium 100 ml @ 200 mls/hr Q6 IVPB Last administered on 11/24/16 13:23; Admin Dose 200 MLS/HR; Start 11/22/16 at 18:00 Sodium Chloride (NS) 1,000 ml @ 125 mls/hr Q8H IV Last administered on 12:17; Admin Dose 125 MLS/HR; Start 11/22/16 at 15:40 Naloxone HCl (Narcan) 0.2 mg PRN PRN IV DECREASED REPIRATORY RATE; Start at 16:00 Hydromorphone HCl (Dilaudid HAND STRIPER) Q4PCA IV Last administered on 11/23/16 13:39 ; Admin Dose 6 MG; Start 11/22/16 at 16:00 Acetaminophen (Tylenol Tab) 500 mg Q4H PRN PO PAIN LEVEL 1-5; Start 11/22/16 at 16:00 Oxycodone/ Acetaminophen (Percocet (5/ 325)) 1 tab Q4H PRN PO PAIN LEVEL 1-5; Start 11/22/16 at 16:00 Oxycodone/ Acetaminophen (Percocet (5/ 325)) 2 tab Q4H PRN PO PAIN LEVEL 6-10; Start 11/22/16 at 16:00 Hydromorphone HCl (Dilaudid) 0.2 mg Q4H PRN IV PAIN LEVEL 1-5; Start 11/22/16 at 16:00 Hydromorphone HCl (Dilaudid) 0.4 mg Q4H PRN IV PAIN LEVEL 6-10; Start 11/22/16 at 16:00 Ketorolac Tromethamine (Toradol) 30 mg Q6H PRN IV PAIN; Start 11/22/16 at 16:00 ; Stop 11/25/16 at 15:59 Ondansetron HCl (Zofran Inj) 4 mg Q6H PRN IV NAUSEA AND/OR VOMITING; Start at 16:00 Trimethobenzamide HCl (Tigan) 200 mg Q8H PRN IM NAUSEA AND/OR VOMITING; Start 11/22/16 at 16:00 Diphenhydramine HCl (Benadryl) 25 mg Q6H PRN IV ITCHING; Start 11/22/16 at 16: 00 Miscellaneous Information 1. Discontinue HAND STRIPER... HAND STRIPER IV ; Start 11/22/16 at 16:00 Metoprolol Tartrate (Lopressor) 5 mg Q6 IV Last administered on 11/24/16 12:18 ; Admin Dose 5 MG; Start 11/23/16 at 18:00 Methylprednisolone Sodium Succinate (Solu-Medrol) 20 mg QAM IV Last administered on 11/24/16 08:54; Admin Dose 20 MG; Start 11/23/16 at 13:30 ANGELICA GONZALEZ Nov 24, 2016 15:40
[2016-11-24] MEDS: HYDROmorphONE 0.2 MG/ML PCA IV SCH (18:45)
[2016-11-25] VITALS (10 sets, daily range): BP systolic 107–140; BP diastolic 57–82; PULSE 70–94; RESP 16–20
[2016-11-25] MEDS: SOD CHLORIDE 0.9% 1,000 ML IV SCH ×4 (04:01→17:43)
[2016-11-25] MEDS: METOPROLOL 5 MG INJ IV SCH ×2 (05:08→12:35)
[2016-11-25] MEDS: PANTOPRAZOLE 40 MG INJ IV SCH (05:08)
[2016-11-25] MEDS: AMPICILLIN/SULB 3 GM/NS (PMX) 100 ML IVPB SCH ×4 (05:09→23:40)
[2016-11-25] MEDS: Insulin NOVOLOG SS MILD Algorithm (NPO/TPN/ENTERAL FEEDS) SC SCH ×4 (05:22→17:43)
[2016-11-25 08:07] LABS: ADD SCAN DIFF NO
[2016-11-25 08:14] LABS: ABNORMAL IP MESSAGE 1; BASOPHIL # 0.1 10^3/ul (0.0-0.1); BASOPHILS % 0.4 % (0.0-2.0); EOSINOPHILS # 0.2 10^3/ul (0.0-0.5); EOSINOPHILS % 1.5 % (0.0-7.0); HEMATOCRIT 29.9 % (42.0-52.0); HEMOGLOBIN 9.2 g/dl (14.0-18.0); LYMPHOCYTES # 2.1 10^3/ul (0.8-2.9); LYMPHOCYTES % 17.5 % (15.0-51.0); MEAN CORPUSCULAR HEMOGLOBIN 22.1 pg (29.0-33.0); MEAN CORPUSCULAR HGB CONC 30.8 g/dl (32.0-37.0); MEAN CORPUSCULAR VOLUME 71.9 fl (82.0-101.0); MEAN PLATELET VOLUME 10.7 fl (7.4-10.4); MONOCYTE # 1.3 10^3/ul (0.3-0.9); MONOCYTES % 11.1 % (0.0-11.0); NEUTROPHIL # 7.1 10^3/ul (1.6-7.5); NEUTROPHILS % 59.1 % (39.0-77.0); NUCLEATED RED BLOOD CELLS% 0.2 /100WBC (0.0-0.0); PLATELET COUNT 320 10^3/UL (140-415); RED BLOOD COUNT 4.16 10^6/ul (4.70-6.10); RED CELL DISTRIBUTION WIDTH 15.7 % (11.5-14.5)
[2016-11-25 08:42] LABS: CALCIUM 8.4 mg/dl (8.4-10.2); CREATININE 0.99 mg/dl (0.61-1.24); POTASSIUM 3.7 mmol/L (3.5-5.1)
[2016-11-25] MEDS: METHYLPREDNISOLONE 40 MG INJ IV SCH (08:48)
--- NOTE | 2016-11-25 16:10 | PN ---
Date/Time of Note Date/Time of Note DATE: 11/25/16 TIME: 16:09 Assessment/Plan VTE Prophylaxis VTE Prophylaxis Intervention: SCD's Lines/Catheters IV Catheter Type (from Nrs): Saline Lock Urinary Cath still in place: No Assessment/Plan Chief Complaint/Hosp Course s/p lap gustavo to open for difficult visualization and morbid obesity Problems: Assessment/Plan doing well tolerating clears and having bm start diet tomorrow morning Subjective 24 Hr Interval Summary Free Text/Dictation doing well, tolerating clears, no nausea or vomiting, having bm Exam/Review of Systems Vital Signs Vitals Vital Signs Date Time Temp Pulse Resp B/P Pulse Ox O2 Delivery O2 Flow Rate FiO2 11/25/16 12:21 70 11/25/16 11:59 98.6 18 128/77 100 11/23/16 08:15 Room Air 11/22/16 17:17 2.0 Intake and Output 11/24/16 11/24/16 11/25/16 15:00 23:00 07:00 Intake Total 600 ml 950 ml 1200 ml Output Total 400 ml 650 ml 40 ml Balance 200 ml 300 ml 1160 ml Exam dressing intact Results Result Diagram: 11/25/16 0745 11/25/16 0745 Results 24 hrs Laboratory Tests Test 11/24/16 17:36 11/25/16 00:02 11/25/16 05:20 11/25/16 07:45 Bedside Glucose 111 90 78 White Blood Count 12.0 H Red Blood Count 4.16 L Hemoglobin 9.2 L Hematocrit 29.9 L Mean Corpuscular Volume 71.9 L Mean Corpuscular Hemoglobin 22.1 L Mean Corpuscular Hemoglobin Concent 30.8 L Red Cell Distribution Width 15.7 H Platelet Count 320 Mean Platelet Volume 10.7 H Neutrophils % 59.1 Lymphocytes % 17.5 Monocytes % 11.1 H Eosinophils % 1.5 Basophils % 0.4 Nucleated Red Blood Cells % 0.2 H Neutrophils # 7.1 Lymphocytes # 2.1 Monocytes # 1.3 H Eosinophils # 0.2 Basophils # 0.1 Nucleated Red Blood Cells # 0.0 Sodium Level 138 Potassium Level 3.7 Chloride Level 98 Carbon Dioxide Level 26 Anion Gap 18 H Blood Urea Nitrogen 14 Creatinine 0.99 Glucose Level 84 Calcium Level 8.4 Test 11/25/16 12:26 Bedside Glucose 105 Medications Medications Current Medications Morphine Sulfate (morphine) 2 mg Q2H PRN IV PAIN LEVEL 6-10 Last administered on 11/21/16 21:02; Admin Dose 2 MG; Start 11/14/16 at 12:00 Miscellaneous Information 1 ea NOTE XX ; Start 11/14/16 at 13:30 Glucose (Glutose) 15 gm Q15M PRN PO DECREASED GLUCOSE; Start 11/14/16 at 13:30 Glucose (Glutose) 22.5 gm Q15M PRN PO DECREASED GLUCOSE; Start 11/14/16 at 13:30 Dextrose (D50w Syringe) 25 ml Q15M PRN IV DECREASED GLUCOSE; Start 11/14/16 at 13:30 Dextrose (D50w Syringe) 50 ml Q15M PRN IV DECREASED GLUCOSE; Start 11/14/16 at 13:30 Glucagon (Glucagen) 1 mg Q15M PRN IM DECREASED GLUCOSE; Start 11/14/16 at 13:30 Glucose (Glutose) 15 gm Q15M PRN BUCCAL DECREASED GLUCOSE; Start 11/14/16 at 13: 30 Vitamin A/Vitamin D (Vitamin A & D Oint) 1 applic DAILY PRN TOP dryness Last administered on 11/15/16 11:48; Admin Dose 1 APPLIC; Start 11/15/16 at 11:00 Simethicone (Mylicon) 80 mg Q6H PRN PO DISTENSION/GAS/BLOATING Last administered on 11/16/16 21:00; Admin Dose 80 MG; Start 11/16/16 at 11:30 Promethazine HCl (Phenergan) 25 mg Q6H PRN PO NAUSEA AND/OR VOMITING Last administered on 11/19/16 21:52; Admin Dose 25 MG; Start 11/16/16 at 23:00 Metoprolol Tartrate (Lopressor) 25 mg BID PO Last administered on 11/20/16 08: 02; Admin Dose 25 MG; Start 11/18/16 at 09:00; Status Future Hold Hydralazine HCl (Apresoline) 10 mg Q4H PRN IV SBP>160 Last administered on 11/17 23:42; Admin Dose 10 MG; Start 11/17/16 at 23:30 Acetaminophen (Tylenol Tab) 650 mg Q4H PRN PO PAIN AND OR ELEVATED TEMP Last administered on 11/20/16 08:02; Admin Dose 650 MG; Start 11/18/16 at 13:00 Insulin Aspart (Novolog Insulin Pen) (Adult SC Insulin - Mild Algorithm)... Q6 SC ; Start 11/18/16 at 18:08 Pantoprazole 40 mg 40 mg DAILY@06 IV Last administered on 11/25/16 05:08; Admin Dose 40 MG; Start 11/21/16 at 06:00 Ampicillin Sodium/ Sulbactam Sodium 100 ml @ 200 mls/hr Q6 IVPB Last administered on 11/25/16 12:29; Admin Dose 200 MLS/HR; Start 11/22/16 at 18:00 Sodium Chloride (NS) 1,000 ml @ 125 mls/hr Q8H IV Last administered on 05:16; Admin Dose 125 MLS/HR; Start 11/22/16 at 15:40 Naloxone HCl (Narcan) 0.2 mg PRN PRN IV DECREASED REPIRATORY RATE; Start at 16:00 Hydromorphone HCl (Dilaudid COIL MACHINE OPERATOR) Q4PCA IV Last administered on 11/24/16 18:45 ; Admin Dose 6 MG; Start 11/22/16 at 16:00 Acetaminophen (Tylenol Tab) 500 mg Q4H PRN PO PAIN LEVEL 1-5; Start 11/22/16 at 16:00 Oxycodone/ Acetaminophen (Percocet (5/ 325)) 1 tab Q4H PRN PO PAIN LEVEL 1-5; Start 11/22/16 at 16:00 Oxycodone/ Acetaminophen (Percocet (5/ 325)) 2 tab Q4H PRN PO PAIN LEVEL 6-10; Start 11/22/16 at 16:00 Hydromorphone HCl (Dilaudid) 0.2 mg Q4H PRN IV PAIN LEVEL 1-5; Start 11/22/16 at 16:00 Hydromorphone HCl (Dilaudid) 0.4 mg Q4H PRN IV PAIN LEVEL 6-10; Start 11/22/16 at 16:00 Ketorolac Tromethamine (Toradol) 30 mg Q6H PRN IV PAIN; Start 11/22/16 at 16:00 ; Stop 11/25/16 at 15:59 Ondansetron HCl (Zofran Inj) 4 mg Q6H PRN IV NAUSEA AND/OR VOMITING; Start at 16:00 Trimethobenzamide HCl (Tigan) 200 mg Q8H PRN IM NAUSEA AND/OR VOMITING; Start 11/22/16 at 16:00 Diphenhydramine HCl (Benadryl) 25 mg Q6H PRN IV ITCHING; Start 11/22/16 at 16: 00 Miscellaneous Information 1. Discontinue COIL MACHINE OPERATOR... COIL MACHINE OPERATOR IV ; Start 11/22/16 at 16:00 Metoprolol Tartrate (Lopressor) 5 mg Q6 IV Last administered on 11/25/16 12:35 ; Admin Dose 5 MG; Start 11/23/16 at 18:00 Methylprednisolone Sodium Succinate (Solu-Medrol) 20 mg QAM IV Last administered on 11/25/16 08:48; Admin Dose 20 MG; Start 11/23/16 at 13:30 Debbie CASTANEDA Nov 25, 2016 16:10
--- NOTE | 2016-11-25 16:57 | PN ---
Date/Time of Note Date/Time of Note DATE: 11/25/16 TIME: 16:52 Assessment/Plan VTE Prophylaxis VTE Prophylaxis Intervention: SCD's Lines/Catheters [facility] Peripheral IV Urinary Cath still in place: No Assessment/Plan Chief Complaint/Hosp Course Patient tolerates full liquid diet well, pain is well controlled, remains in sinus rhythm. Assessment/Plan -Symptomatic cholelithiasis, status post open cholecystectomy and liver biopsy + steatohepatitis 11/14. S/pt fascial closure for dehiscence and incisional hernia repair on 11/[address] Reyes general surgery. -Postop ileus, resolving -Small gallbladder bed bile leak vs cystic duct leak with adequate drainage from drain, continue to monitor, possible ERCP with stent placement if the output does not improve. -Prediabetes, continue to monitor blood sugar every 6 hours with NovoLog sliding sliding scale coverage. -Fatty liver -Jxbc-Bomwezug-Xbczhg syndrome, Autoimmune disorder, resume patient home medication when patient recovered from surgery. -Obesity with BMI of 43.4 Further recommendations based on clinical course. Plan of care discussed with Dr. Nesbitt. Problems: Exam/Review of Systems Vital Signs Vitals Vital Signs Date Time Temp Pulse Resp B/P Pulse Ox O2 Delivery O2 Flow Rate FiO2 11/25/16 16:40 94 11/25/16 16:04 98.1 18 132/73 100 11/23/16 08:15 Room Air 11/22/16 17:17 2.0 Intake and Output 11/24/16 11/24/16 11/25/16 15:00 23:00 07:00 Intake Total 600 ml 950 ml 1200 ml Output Total 400 ml 650 ml 40 ml Balance 200 ml 300 ml 1160 ml Exam Constitutional: alert, oriented Head: normocephalic Neck: supple Respiratory: normal air movement Cardiovascular: nl pulses Gastrointestinal: other (Status post surgery), soft Extremities: normal pulses Neurological: nl mental status Results Result Diagram: 11/25/16 0745 11/25/16 0745 Results 24 hrs Laboratory Tests Test 11/24/16 17:36 11/25/16 00:02 11/25/16 05:20 11/25/16 07:45 Bedside Glucose 111 90 78 White Blood Count 12.0 H Red Blood Count 4.16 L Hemoglobin 9.2 L Hematocrit 29.9 L Mean Corpuscular Volume 71.9 L Mean Corpuscular Hemoglobin 22.1 L Mean Corpuscular Hemoglobin Concent 30.8 L Red Cell Distribution Width 15.7 H Platelet Count 320 Mean Platelet Volume 10.7 H Neutrophils % 59.1 Lymphocytes % 17.5 Monocytes % 11.1 H Eosinophils % 1.5 Basophils % 0.4 Nucleated Red Blood Cells % 0.2 H Neutrophils # 7.1 Lymphocytes # 2.1 Monocytes # 1.3 H Eosinophils # 0.2 Basophils # 0.1 Nucleated Red Blood Cells # 0.0 Sodium Level 138 Potassium Level 3.7 Chloride Level 98 Carbon Dioxide Level 26 Anion Gap 18 H Blood Urea Nitrogen 14 Creatinine 0.99 Glucose Level 84 Calcium Level 8.4 Test 11/25/16 12:26 Bedside Glucose 105 Medications Medications Current Medications Morphine Sulfate (morphine) 2 mg Q2H PRN IV PAIN LEVEL 6-10 Last administered on 11/21/16 21:02; Admin Dose 2 MG; Start 11/14/16 at 12:00 Miscellaneous Information 1 ea NOTE XX ; Start 11/14/16 at 13:30 Glucose (Glutose) 15 gm Q15M PRN PO DECREASED GLUCOSE; Start 11/14/16 at 13:30 Glucose (Glutose) 22.5 gm Q15M PRN PO DECREASED GLUCOSE; Start 11/14/16 at 13:30 Dextrose (D50w Syringe) 25 ml Q15M PRN IV DECREASED GLUCOSE; Start 11/14/16 at 13:30 Dextrose (D50w Syringe) 50 ml Q15M PRN IV DECREASED GLUCOSE; Start 11/14/16 at 13:30 Glucagon (Glucagen) 1 mg Q15M PRN IM DECREASED GLUCOSE; Start 11/14/16 at 13:30 Glucose (Glutose) 15 gm Q15M PRN BUCCAL DECREASED GLUCOSE; Start 11/14/16 at 13: 30 Vitamin A/Vitamin D (Vitamin A & D Oint) 1 applic DAILY PRN TOP dryness Last administered on 11/15/16 11:48; Admin Dose 1 APPLIC; Start 11/15/16 at 11:00 Simethicone (Mylicon) 80 mg Q6H PRN PO DISTENSION/GAS/BLOATING Last administered on 11/16/16 21:00; Admin Dose 80 MG; Start 11/16/16 at 11:30 Promethazine HCl (Phenergan) 25 mg Q6H PRN PO NAUSEA AND/OR VOMITING Last administered on 11/19/16 21:52; Admin Dose 25 MG; Start 11/16/16 at 23:00 Metoprolol Tartrate (Lopressor) 25 mg BID PO Last administered on 11/20/16 08: 02; Admin Dose 25 MG; Start 11/18/16 at 09:00; Status Future hold Hydralazine HCl (Apresoline) 10 mg Q4H PRN IV SBP>160 Last administered on 11/17 23:42; Admin Dose 10 MG; Start 11/17/16 at 23:30 Acetaminophen (Tylenol Tab) 650 mg Q4H PRN PO PAIN AND OR ELEVATED TEMP Last administered on 11/20/16 08:02; Admin Dose 650 MG; Start 11/18/16 at 13:00 Insulin Aspart (Novolog Insulin Pen) (Adult SC Insulin - Mild Algorithm)... Q6 SC ; Start 11/18/16 at 18:08 Pantoprazole 40 mg 40 mg DAILY@06 IV Last administered on 11/25/16 05:08; Admin Dose 40 MG; Start 11/21/16 at 06:00 Ampicillin Sodium/ Sulbactam Sodium 100 ml @ 200 mls/hr Q6 IVPB Last administered on 11/25/16 12:29; Admin Dose 200 MLS/HR; Start 11/22/16 at 18:00 Sodium Chloride (NS) 1,000 ml @ 75 mls/hr [id number] IV Last administered on 11/25 05:16; Admin Dose 125 MLS/HR; Start 11/22/16 at 15:40 Naloxone HCl (Narcan) 0.2 mg PRN PRN IV DECREASED REPIRATORY RATE; Start at 16:00 Hydromorphone HCl (Dilaudid HOUSEKEEPER SUPERVISOR) Q4PCA IV Last administered on 11/24/16 18:45 ; Admin Dose 6 MG; Start 11/22/16 at 16:00 Acetaminophen (Tylenol Tab) 500 mg Q4H PRN PO PAIN LEVEL 1-5; Start 11/22/16 at 16:00 Oxycodone/ Acetaminophen (Percocet (5/ 325)) 1 tab Q4H PRN PO PAIN LEVEL 1-5; Start 11/22/16 at 16:00 Oxycodone/ Acetaminophen (Percocet (5/ 325)) 2 tab Q4H PRN PO PAIN LEVEL 6-10; Start 11/22/16 at 16:00 Hydromorphone HCl (Dilaudid) 0.2 mg Q4H PRN IV PAIN LEVEL 1-5; Start 11/22/16 at 16:00 Hydromorphone HCl (Dilaudid) 0.4 mg Q4H PRN IV PAIN LEVEL 6-10; Start 11/22/16 at 16:00 Ondansetron HCl (Zofran Inj) 4 mg Q6H PRN IV NAUSEA AND/OR VOMITING; Start at 16:00 Trimethobenzamide HCl (Tigan) 200 mg Q8H PRN IM NAUSEA AND/OR VOMITING; Start 11/22/16 at 16:00 Diphenhydramine HCl (Benadryl) 25 mg Q6H PRN IV ITCHING; Start 11/22/16 at 16: 00 Miscellaneous Information 1. Discontinue HOUSEKEEPER SUPERVISOR... HOUSEKEEPER SUPERVISOR IV ; Start 11/22/16 at 16:00 Methylprednisolone Sodium Succinate (Solu-Medrol) 10 mg QAM IV ; Start 11/26/16 at 09:00 ANGELICA GONZALEZ Nov 25, 2016 16:57
[2016-11-25] MEDS ORDERED: INSULIN ASPART [NOVOLOG] 3 ML PEN SC SCH (21:00)
[2016-11-25] MEDS: Insulin NOVOLOG SS MILD Algorithm (SS with meals and bedtime) SC SCH (21:00)
[2016-11-26] VITALS (12 sets, daily range): BP systolic 115–131; BP diastolic 69–80; PULSE 81–95; RESP 18–20
[2016-11-26] MEDS: ACCUCHECK AT 2AM (Patients on SS coverage) XX SCH (02:00)
[2016-11-26] MEDS: PANTOPRAZOLE 40 MG INJ IV SCH (05:40)
[2016-11-26] MEDS: AMPICILLIN/SULB 3 GM/NS (PMX) 100 ML IVPB SCH ×4 (05:40→23:51)
[2016-11-26] MEDS: Insulin NOVOLOG SS MILD Algorithm (SS with meals and bedtime) SC SCH ×4 (07:30→21:00)
[2016-11-26 08:31] LABS: ADD SCAN DIFF NO
[2016-11-26 08:40] LABS: ABNORMAL IP MESSAGE 1; HEMATOCRIT 30.2 % (42.0-52.0); HEMOGLOBIN 9.4 g/dl (14.0-18.0); MEAN CORPUSCULAR HEMOGLOBIN 22.1 pg (29.0-33.0); MEAN CORPUSCULAR HGB CONC 31.1 g/dl (32.0-37.0); MEAN CORPUSCULAR VOLUME 70.9 fl (82.0-101.0); MEAN PLATELET VOLUME 10.1 fl (7.4-10.4); PLATELET COUNT 353 10^3/UL (140-415); RED BLOOD COUNT 4.26 10^6/ul (4.70-6.10); RED CELL DISTRIBUTION WIDTH 15.8 % (11.5-14.5); WHITE BLOOD COUNT 13.2 10^3/ul (4.8-10.8)
[2016-11-26 08:52] LABS: CALCIUM 8.3 mg/dl (8.4-10.2); CREATININE 1.07 mg/dl (0.61-1.24); POTASSIUM 3.6 mmol/L (3.5-5.1)
[2016-11-26] MEDS: METHYLPREDNISOLONE 40 MG INJ IV SCH (09:56)
[2016-11-26] MEDS: morphine 2 MG INJ IV PRN (12:50)
[2016-11-26 13:22] LABS: EOSINOPHILS # 0.3 10^3/ul (0.0-0.5); LYMPHOCYTES # 2.2 10^3/ul (0.8-2.9); MONOCYTE # 1.5 10^3/ul (0.3-0.9); NEUTROPHIL # 8.4 10^3/ul (1.6-7.5)
[2016-11-26 13:23] LABS: HYPOCHROMASIA 1+; MICROCYTOSIS 1+; OVALOCYTES 1+
[2016-11-26] MEDS: SOD CHLORIDE 0.9% 1,000 ML IV SCH (13:35)
--- NOTE | 2016-11-26 14:41 | PN ---
Date/Time of Note Date/Time of Note DATE: 11/26/16 TIME: 14:39 Assessment/Plan VTE Prophylaxis VTE Prophylaxis Intervention: SCD's Lines/Catheters IV [facility]from [facility] Peripheral IV Urinary Cath still in place: No Assessment/Plan Chief Complaint/Hosp Course s/p lap gustavo to open for difficult visualization and morbid obesity Problems: Assessment/Plan s/p closure of incision for fascial dehiscence doing well tolerating diet moving bowel movements ok to dc tomorrow Subjective 24 Hr Interval Summary Free Text/Dictation doing well tolerating diet, having bowel movements, pain control adequate Exam/Review of Systems Vital Signs Vitals Vital Signs Date Time Temp Pulse Resp B/P Pulse Ox O2 Delivery O2 Flow Rate FiO2 11/26/16 12:37 81 11/26/16 11:38 98.4 18 131/74 95 11/23/16 08:15 Room Air 11/22/16 17:17 2.0 Intake and Output 11/25/16 11/25/16 11/26/16 15:00 23:00 07:00 Intake Total 100 ml 2120 ml 1550 ml Output Total 500 ml 90 ml Balance -400 ml 2030 ml 1550 ml Exam c/d/i Results Result Diagram: 11/26/16 0733 11/26/16 0733 Results 24 hrs Laboratory Tests Test 11/25/16 17:40 11/25/16 21:17 11/26/16 07:33 11/26/16 08:01 Bedside Glucose 120 102 112 White Blood Count 13.2 H Red Blood Count 4.26 L Hemoglobin 9.4 L Hematocrit 30.2 L Mean Corpuscular Volume 70.9 L Mean Corpuscular Hemoglobin 22.1 L Mean Corpuscular Hemoglobin Concent 31.1 L Red Cell Distribution Width 15.8 H Platelet Count 353 Mean Platelet Volume 10.1 Neutrophils % 64.0 Band Neutrophils % 2.0 Lymphocytes % 17.0 Monocytes % 11.0 Eosinophils % 2.0 Basophils % Metamyelocytes % 4.0 H Nucleated Red Blood Cells % Neutrophils # 8.4 H Lymphocytes # 2.2 Monocytes # 1.5 H Eosinophils # 0.3 Basophils # Metamyelocytes # 0.5 Nucleated Red Blood Cells # Hypochromasia 1+ Microcytosis 1+ Ovalocytes 1+ Sodium Level 141 Potassium Level 3.6 Chloride Level 103 Carbon Dioxide Level 27 Anion Gap 15 Blood Urea Nitrogen 11 Creatinine 1.07 Glucose Level 104 Calcium Level 8.3 L Test 11/26/16 13:03 Bedside Glucose 161 Medications Medications Current Medications Morphine Sulfate (morphine) 2 mg Q2H PRN IV PAIN LEVEL 6-10 Last administered on 11/26/16 12:50; Admin Dose 2 MG; Start 11/14/16 at 12:00 Miscellaneous Information 1 ea NOTE XX ; Start 11/14/16 at 13:30 Glucose (Glutose) 15 gm Q15M PRN PO DECREASED GLUCOSE; Start 11/14/16 at 13:30 Glucose (Glutose) 22.5 gm Q15M PRN PO DECREASED GLUCOSE; Start 11/14/16 at 13:30 Dextrose (D50w Syringe) 25 ml Q15M PRN IV DECREASED GLUCOSE; Start 11/14/16 at 13:30 Dextrose (D50w Syringe) 50 ml Q15M PRN IV DECREASED GLUCOSE; Start 11/14/16 at 13:30 Glucagon (Glucagen) 1 mg Q15M PRN IM DECREASED GLUCOSE; Start 11/14/16 at 13:30 Glucose (Glutose) 15 gm Q15M PRN BUCCAL DECREASED GLUCOSE; Start 11/14/16 at 13: 30 Vitamin A/Vitamin D (Vitamin A & D Oint) 1 applic DAILY PRN TOP dryness Last administered on 11/15/16 11:48; Admin Dose 1 APPLIC; Start 11/15/16 at 11:00 Simethicone (Mylicon) 80 mg Q6H PRN PO DISTENSION/GAS/BLOATING Last administered on 11/16/16 21:00; Admin Dose 80 MG; Start 11/16/16 at 11:30 Promethazine HCl (Phenergan) 25 mg Q6H PRN PO NAUSEA AND/OR VOMITING Last administered on 11/19/16 21:52; Admin Dose 25 MG; Start 11/16/16 at 23:00 Metoprolol Tartrate (Lopressor) 25 mg BID PO Last administered on 11/20/16 08: 02; Admin Dose 25 MG; Start 11/18/16 at 09:00; Status Future hold Hydralazine HCl (Apresoline) 10 mg Q4H PRN IV SBP>160 Last administered on 11/17 23:42; Admin Dose 10 MG; Start 11/17/16 at 23:30 Acetaminophen (Tylenol Tab) 650 mg Q4H PRN PO PAIN AND OR ELEVATED TEMP Last administered on 11/20/16 08:02; Admin Dose 650 MG; Start 11/18/16 at 13:00 Pantoprazole 40 mg 40 mg DAILY@06 IV Last administered on 11/26/16 05:40; Admin Dose 40 MG; Start 11/21/16 at 06:00 Ampicillin Sodium/ Sulbactam Sodium 100 ml @ 200 mls/hr Q6 IVPB Last administered on 11/26/16 12:50; Admin Dose 200 MLS/HR; Start 11/22/16 at 18:00 Sodium Chloride (NS) 1,000 ml @ 75 mls/hr [id number] IV Last administered on 11/25 17:43; Admin Dose 75 MLS/HR; Start 11/22/16 at 15:40 Naloxone HCl (Narcan) 0.2 mg PRN PRN IV DECREASED REPIRATORY RATE; Start at 16:00 Hydromorphone HCl (Dilaudid GLUING MACHINE OPERATOR) Q4PCA IV Last administered on 11/24/16 18:45 ; Admin Dose 6 MG; Start 11/22/16 at 16:00 Acetaminophen (Tylenol Tab) 500 mg Q4H PRN PO PAIN LEVEL 1-5; Start 11/22/16 at 16:00 Oxycodone/ Acetaminophen (Percocet (5/ 325)) 1 tab Q4H PRN PO PAIN LEVEL 1-5 Last administered on 11/26/16 09:56; Admin Dose 1 TAB; Start 11/22/16 at 16:00 Oxycodone/ Acetaminophen (Percocet (5/ 325)) 2 tab Q4H PRN PO PAIN LEVEL 6-10; Start 11/22/16 at 16:00 Hydromorphone HCl (Dilaudid) 0.2 mg Q4H PRN IV PAIN LEVEL 1-5; Start 11/22/16 at 16:00 Hydromorphone HCl (Dilaudid) 0.4 mg Q4H PRN IV PAIN LEVEL 6-10; Start 11/22/16 at 16:00 Ondansetron HCl (Zofran Inj) 4 mg Q6H PRN IV NAUSEA AND/OR VOMITING Last administered on 11/26/16 12:50; Admin Dose 4 MG; Start 11/22/16 at 16:00 Trimethobenzamide HCl (Tigan) 200 mg Q8H PRN IM NAUSEA AND/OR VOMITING; Start 11/22/16 at 16:00 Diphenhydramine HCl (Benadryl) 25 mg Q6H PRN IV ITCHING; Start 11/22/16 at 16: 00 Miscellaneous Information 1. 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
--- NOTE | 2016-11-26 18:30 | PN ---
Date/Time of Note Date/Time of Note DATE: 11/26/16 TIME: 18:26 Assessment/Plan VTE Prophylaxis VTE Prophylaxis Intervention: SCD's Lines/Catheters IV Catheter Type (from [facility]): Peripheral IV Urinary Cath still in place: No Assessment/Plan Chief Complaint/Hosp Course Patient denies any nausea vomiting, started on regular diet, no tachycardia, patient remains in sinus rhythm, denies fevers, possible DC tomorrow if patient tolerates regular diet well.` Assessment/Plan -Symptomatic cholelithiasis, status post open cholecystectomy and liver biopsy + steatohepatitis 11/14. S/pt fascial closure for dehiscence and incisional hernia repair on 11/[address] Reyes general surgery. -Postop ileus, resolved -Prediabetes, continue to monitor blood sugar every 6 hours with NovoLog sliding sliding scale coverage. -Fatty liver -Cfda-Ouczkbst-Rgznee syndrome, Autoimmune disorder, resume patient home medication when patient recovered from surgery. -Obesity with BMI of 43.4 Further recommendations based on clinical course. Plan of care discussed with Dr. Nesbitt. Problems: Exam/Review of Systems Vital Signs Vitals Vital Signs Date Time Temp Pulse Resp B/P Pulse Ox O2 Delivery O2 Flow Rate FiO2 11/26/16 16:23 82 11/26/16 15:37 98.8 18 123/76 100 11/23/16 08:15 Room Air 11/22/16 17:17 2.0 Intake and Output 11/25/16 11/25/16 11/26/16 15:00 23:00 07:00 Intake Total 100 ml 2120 ml 1550 ml Output Total 500 ml 90 ml Balance -400 ml 2030 ml 1550 ml Exam Constitutional: alert, oriented Head: normocephalic Neck: supple Respiratory: normal air movement Cardiovascular: nl pulses Gastrointestinal: other (Status post surgery), soft, right lower quadrant FLORA drain Extremities: normal pulses Neurological: nl mental status Results Result Diagram: 11/26/16 0733 11/26/16 0733 Results 24 hrs Laboratory Tests Test 11/25/16 21:17 11/26/16 07:33 11/26/16 08:01 11/26/16 13:03 Bedside Glucose 102 112 161 White Blood Count 13.2 H Red Blood Count 4.26 L Hemoglobin 9.4 L Hematocrit 30.2 L Mean Corpuscular Volume 70.9 L Mean Corpuscular Hemoglobin 22.1 L Mean Corpuscular Hemoglobin Concent 31.1 L Red Cell Distribution Width 15.8 H Platelet Count 353 Mean Platelet Volume 10.1 Neutrophils % 64.0 Band Neutrophils % 2.0 Lymphocytes % 17.0 Monocytes % 11.0 Eosinophils % 2.0 Basophils % Metamyelocytes % 4.0 H Nucleated Red Blood Cells % Neutrophils # 8.4 H Lymphocytes # 2.2 Monocytes # 1.5 H Eosinophils # 0.3 Basophils # Metamyelocytes # 0.5 Nucleated Red Blood Cells # Hypochromasia 1+ Microcytosis 1+ Ovalocytes 1+ Sodium Level 141 Potassium Level 3.6 Chloride Level 103 Carbon Dioxide Level 27 Anion Gap 15 Blood Urea Nitrogen 11 Creatinine 1.07 Glucose Level 104 Calcium Level 8.3 L Test 11/26/16 18:19 Bedside Glucose 140 Medications Medications Current Medications Morphine Sulfate (morphine) 2 mg Q2H PRN IV PAIN LEVEL 6-10 Last administered on 11/26/16 12:50; Admin Dose 2 MG; Start 11/14/16 at 12:00 Miscellaneous Information 1 ea NOTE XX ; Start 11/14/16 at 13:30 Glucose (Glutose) 15 gm Q15M PRN PO DECREASED GLUCOSE; Start 11/14/16 at 13:30 Glucose (Glutose) 22.5 gm Q15M PRN PO DECREASED GLUCOSE; Start 11/14/16 at 13:30 Dextrose (D50w Syringe) 25 ml Q15M PRN IV DECREASED GLUCOSE; Start 11/14/16 at 13:30 Dextrose (D50w Syringe) 50 ml Q15M PRN IV DECREASED GLUCOSE; Start 11/14/16 at 13:30 Glucagon (Glucagen) 1 mg Q15M PRN IM DECREASED GLUCOSE; Start 11/14/16 at 13:30 Glucose (Glutose) 15 gm Q15M PRN BUCCAL DECREASED GLUCOSE; Start 11/14/16 at 13: 30 Vitamin A/Vitamin D (Vitamin A & D Oint) 1 applic DAILY PRN TOP dryness Last administered on 11/15/16 11:48; Admin Dose 1 APPLIC; Start 11/15/16 at 11:00 Simethicone (Mylicon) 80 mg Q6H PRN PO DISTENSION/GAS/BLOATING Last administered on 11/16/16 21:00; Admin Dose 80 MG; Start 11/16/16 at 11:30 Promethazine HCl (Phenergan) 25 mg Q6H PRN PO NAUSEA AND/OR VOMITING Last administered on 11/19/16 21:52; Admin Dose 25 MG; Start 11/16/16 at 23:00 Metoprolol Tartrate (Lopressor) 25 mg BID PO Last administered on 11/20/16 08: 02; Admin Dose 25 MG; Start 11/18/16 at 09:00; Status Future hold Hydralazine HCl (Apresoline) 10 mg Q4H PRN IV SBP>160 Last administered on 11/17 23:42; Admin Dose 10 MG; Start 11/17/16 at 23:30 Acetaminophen (Tylenol Tab) 650 mg Q4H PRN PO PAIN AND OR ELEVATED TEMP Last administered on 11/20/16 08:02; Admin Dose 650 MG; Start 11/18/16 at 13:00 Pantoprazole 40 mg 40 mg DAILY@06 IV Last administered on 11/26/16 05:40; Admin Dose 40 MG; Start 11/21/16 at 06:00 Ampicillin Sodium/ Sulbactam Sodium 100 ml @ 200 mls/hr Q6 IVPB Last administered on 11/26/16 12:50; Admin Dose 200 MLS/HR; Start 11/22/16 at 18:00 Sodium Chloride (NS) 1,000 ml @ 75 mls/hr [id number] IV Last administered on 11/25 17:43; Admin Dose 75 MLS/HR; Start 11/22/16 at 15:40 Naloxone HCl (Narcan) 0.2 mg PRN PRN IV DECREASED REPIRATORY RATE; Start at 16:00 Hydromorphone HCl (Dilaudid STAFF SONOGRAPHER) Q4PCA IV Last administered on 11/24/16 18:45 ; Admin Dose 6 MG; Start 11/22/16 at 16:00 Acetaminophen (Tylenol Tab) 500 mg Q4H PRN PO PAIN LEVEL 1-5; Start 11/22/16 at 16:00 Oxycodone/ Acetaminophen (Percocet (5/ 325)) 1 tab Q4H PRN PO PAIN LEVEL 1-5 Last administered on 11/26/16 09:56; Admin Dose 1 TAB; Start 11/22/16 at 16:00 Oxycodone/ Acetaminophen (Percocet (5/ 325)) 2 tab Q4H PRN PO PAIN LEVEL 6-10; Start 11/22/16 at 16:00 Hydromorphone HCl (Dilaudid) 0.2 mg Q4H PRN IV PAIN LEVEL 1-5; Start 11/22/16 at 16:00 Hydromorphone HCl (Dilaudid) 0.4 mg Q4H PRN IV PAIN LEVEL 6-10; Start 11/22/16 at 16:00 Ondansetron HCl (Zofran Inj) 4 mg Q6H PRN IV NAUSEA AND/OR VOMITING Last administered on 11/26/16 12:50; Admin Dose 4 MG; Start 11/22/16 at 16:00 Trimethobenzamide HCl (Tigan) 200 mg Q8H PRN IM NAUSEA AND/OR VOMITING; Start 11/22/16 at 16:00 Diphenhydramine HCl (Benadryl) 25 mg Q6H PRN IV ITCHING; Start 11/22/16 at 16: 00 Miscellaneous Information 1. Discontinue STAFF SONOGRAPHER... STAFF SONOGRAPHER IV ; Start 11/22/16 at 16:00 Methylprednisolone Sodium Succinate (Solu-Medrol) 10 mg QAM IV Last administered on 11/26/16 09:56; Admin Dose 10 MG; Start 11/26/16 at 09:00 Diagnostic Test (Pha) (Accu-Chek) 1 ea 02 XX ; Start 11/26/16 at 02:00 ANGELICA GONZALEZ Nov 26, 2016 18:29
[2016-11-27] VITALS (8 sets, daily range): BP systolic 116–144; BP diastolic 68–93; PULSE 74–83; RESP 18–20
[2016-11-27] MEDS: ACCUCHECK AT 2AM (Patients on SS coverage) XX SCH (02:00)
[2016-11-27] MEDS: SOD CHLORIDE 0.9% 1,000 ML IV SCH ×2 (02:55→11:56)
[2016-11-27] MEDS: PANTOPRAZOLE 40 MG INJ IV SCH (05:59)
[2016-11-27] MEDS: OXYCODONE/ACETAMINOPHEN (5/325) TAB PO PRN ×2 (05:59→11:50)
[2016-11-27] MEDS: AMPICILLIN/SULB 3 GM/NS (PMX) 100 ML IVPB SCH ×2 (06:00→11:56)
[2016-11-27 07:19] LABS: ADD SCAN DIFF NO
[2016-11-27 07:23] LABS: ABNORMAL IP MESSAGE 1; HEMATOCRIT 30.2 % (42.0-52.0); HEMOGLOBIN 9.7 g/dl (14.0-18.0); MEAN CORPUSCULAR HEMOGLOBIN 22.7 pg (29.0-33.0); MEAN CORPUSCULAR HGB CONC 32.1 g/dl (32.0-37.0); MEAN CORPUSCULAR VOLUME 70.7 fl (82.0-101.0); MEAN PLATELET VOLUME 9.9 fl (7.4-10.4); PLATELET COUNT 390 10^3/UL (140-415); RED BLOOD COUNT 4.27 10^6/ul (4.70-6.10); RED CELL DISTRIBUTION WIDTH 15.6 % (11.5-14.5); WHITE BLOOD COUNT 13.5 10^3/ul (4.8-10.8)
[2016-11-27] MEDS: Insulin NOVOLOG SS MILD Algorithm (SS with meals and bedtime) SC SCH ×2 (07:30→11:30)
[2016-11-27 07:49] LABS: CALCIUM 8.8 mg/dl (8.4-10.2); CREATININE 0.92 mg/dl (0.61-1.24); POTASSIUM 3.8 mmol/L (3.5-5.1)
[2016-11-27] MEDS: METHYLPREDNISOLONE 40 MG INJ IV SCH (08:24)
[2016-11-27 10:53] LABS: EOSINOPHILS # 0.3 10^3/ul (0.0-0.5); LYMPHOCYTES # 2.6 10^3/ul (0.8-2.9); METAMYELOCYTES %M 2 % (0-0); MONOCYTE # 1.1 10^3/ul (0.3-0.9); NEUTROPHIL # 8.6 10^3/ul (1.6-7.5)
--- NOTE | 2016-11-27 11:27 | PDOCDIS ---
Discharge Instructions CONDITION Patient Condition: Stable HOME CARE INSTRUCTIONS: Diet Instructions: RegularSpecial Diet: REGULAR ACTIVITY: Activity Restrictions: Slowly Increase Activity Rest between Activity Avoid heavy lifting Do not operate Machinery Do not operate Power Tool Avoid Heavy Housework Bathing Restrictions: Sponge Bath FOLLOW UP/APPOINTMENTS Follow-up Plan FU with primary MD X 1 week FU with Surgery as recommended Call 911 or go to the nearest hospital if symptoms get worse. Plan of care marianne Eckert/staff/patient. ARPITA BLEVINS Nov 27, 2016 11:27
[2016-11-27] MEDS ORDERED: VIT5OINT2 TOP (12:07)
[2016-11-27] MEDS ORDERED: PROM25TA14 PO (12:07)
[2016-11-27] MEDS ORDERED: Oxycodone/Acetamin (5/325) PO (12:07)
[2016-11-27] MEDS ORDERED: PANT40VI7 IV (12:07)
[2016-11-27] MEDS ORDERED: PANT40TA3 PO (12:17)
--- NOTE | 2016-11-27 12:20 | DS ---
Date/Time of Note Date/Time of Note DATE: 11/27/16 TIME: 12:19 Discharge Summary Admission/Discharge Info Admit Date/Time Nov 16, 2016 at 12:34 Discharge Date/Time Hx of Present Illness The patient is 46-year-old gentleman with history of prediabetes and obesity was evaluated by Dr. Reyes in surgical consultation for symptomatic cholelithiasis. Patient was brought to the hospital and underwent laparoscopic converted to open cholecystectomy and liver biopsy. Postoperatively patient is lethargic but easily arousable, reluctant to provide detailed medical history stated that he feels tired. Patient denies any shortness of breath denies any chest pain denies any nausea complaints of abdominal pain. Hospital Course Patient denies any nausea vomiting, started on regular diet, no tachycardia, patient remains in sinus rhythm, denies fevers, possible DC tomorrow if patient tolerates regular diet well.` Assessment/Plan -Symptomatic cholelithiasis, status post open cholecystectomy and liver biopsy + steatohepatitis 11/14. S/pt fascial closure for dehiscence and incisional hernia repair on 11/[address] Reyes general surgery. -Postop ileus, resolved -Prediabetes, continue to monitor blood sugar every 6 hours with NovoLog sliding sliding scale coverage. -Fatty liver -Ubpq-Qxebywgd-Vskmzb syndrome, Autoimmune disorder, resume patient home medication when patient recovered from surgery. -Obesity with BMI of 43.4 Further recommendations based on clinical course. Plan of care discussed with Dr. Nesbitt. Home Meds Active Scripts Pantoprazole* (Protonix*) 40 Mg Tablet., 40 MG PO DAILY, #30 TAB Prov:ARPITA BLEVINS 11/27/16 [Oxycodone/Acetamin (5/325)] 1 TAB TAB No Conflict Check, 1 TAB PO Q6 Y for PAIN LEVEL 1-5, #20 Prov:ARPITA BLEVINS 11/27/16 Vits A & D/White Pet/Lanolin (Vitamin A & D Grx) 5 Gm Oint.pack, 1 APPLIC TOP DAILY Y for dryness, #1 Prov:ARPITA BLEVINS 11/27/16 Promethazine Hcl* (Phenergan*) 25 Mg Tablet, 25 MG PO Q6H Y for NAUSEA AND/OR VOMITING, #14 TAB Prov:ARPITA BLEVINS 11/27/16 Reported Medications [Pre Dm Med] No Conflict Check, 1 TAB PO DAILY 11/14/16 [Prednisone Drops] No Conflict Check, QID 11/14/16 Prednisone* (Prednisone*) 5 Mg Tab, 5 MG PO EVERY OTHER DAY, TAB 11/14/16 [Cellcept] No Conflict Check, 2 TAB PO BID 11/14/16 Primary Care Provider Care Physician No Primary Pending Labs Laboratory Tests Test 11/26/16 13:03 11/26/16 18:19 11/26/16 21:45 11/27/16 06:56 Bedside Glucose 161mg/dL (70-220) 140mg/dL (70-220) 149mg/dL (70-220) White Blood Count 13.510^3/ul (4.8-10.8) Red Blood Count 4.2710^6/ul (4.70-6.10) Hemoglobin 9.7g/dl (14.0-18.0) Hematocrit 30.2% (42.0-52.0) Mean Corpuscular Volume 70.7fl (82.0-101.0) Mean Corpuscular Hemoglobin 22.7pg (29.0-33.0) Mean Corpuscular Hemoglobin Concent 32.1g/dl (32.0-37.0) Red Cell Distribution Width 15.6% (11.5-14.5) Platelet Count 02268^3/UL (140-415) Mean Platelet Volume 9.9fl (7.4-10.4) Neutrophils % 64.0% (39.0-77.0) Band Neutrophils % 5.0% (0.0-5.0) Lymphocytes % 19.0% (15.0-51.0) Monocytes % 8.0% (0.0-11.0) Eosinophils % 2.0% (0.0-7.0) Metamyelocytes % (manual) 2% (0-0) Neutrophils # 8.610^3/ul (1.6-7.5) Lymphocytes # 2.610^3/ul (0.8-2.9) Monocytes # 1.110^3/ul (0.3-0.9) Eosinophils # 0.310^3/ul (0.0-0.5) Metamyelocytes # 0.3 Sodium Level 142mmol/L (135-144) Potassium Level 3.8mmol/L (3.5-5.1) Chloride Level 101mmol/L (97-110) Carbon Dioxide Level 28mmol/L (21-31) Anion Gap 17 (8-16) Blood Urea Nitrogen 9mg/dl (7-20) Creatinine 0.92mg/dl (0.61-1.24) Glucose Level 111mg/dl (70-220) Calcium Level 8.8mg/dl (8.4-10.2) Test 11/27/16 08:25 11/27/16 11:53 Bedside Glucose 108mg/dL (70-220) 121mg/dL (70-220) ARPITA BELVINS Nov 27, 2016 12:19
--- NOTE | 2016-11-28 11:55 | PN ---
DATE: 11/16/2016 SUBJECTIVE DATA: Postop day 2 status post conversion from laparoscopic to open cholecystectomy. The patient complaining of too much gas that he is not able to pass. He has been out of bed, walks around to the bathroom and has been urinating without any problem. No bowel movement. No passing gas. No vomiting, but some nausea. OBJECTIVE DATA: GENERAL: Awake, alert, laying down in the bed. VITAL SIGNS: Temperature 98.6, heart rate 103, respirations 19, blood pressure 134/77, saturation 96 percent on 2 liters nasal cannula. RESPIRATORY: There is poor respiratory effort by the patient. ABDOMEN: Soft, mildly distended. EXTREMITIES: Legs with no calf tenderness. LABORATORY AND DIAGNOSTIC DATA: AST and ALT decreasing but still is up at 101 and 153 respectively. BUN, creatinine, sodium and potassium normal. CBC: WBCs are up to 12,300 with 72% segmented, hemoglobin 10.7, hematocrit 34.6. The Trell drain has drained 200 mL in the past 24 hours until today morning, and from 8 a.m. until now 2 p.m., has drained 50 mL of fluid which has a slight greenish hue . ASSESSMENT AND PLAN: Relatively stable postop day 2 status post conversion from laparoscopic to open cholecystectomy, reason being inability to control bleeding from gallbladder fossa per surgeon's statement. The drain appears to have some bile in it, to me. Therefore, I am going to order a HIDA scan for Thursday. Will give Dulcolax suppository to help passing bowel movement. Dictated By: Cheo Kiser MD /randal/ec /Document#: [id number]
== END 2016-11-27 16:15 | disposition home or self-care (01) | DRG 415 ==
LOC: SDS 07:36 → UNDOFXSDCSVC 13:52 → SDS 13:52 → MS2 13:52 → UNDOFXSDCACCOM 13:52 → MS2 17:19 → OBSVTOIN 11-16 12:34 → MS4 11-23 07:50
PROVIDERS: ADMIT Internal Medicine; ATTEND Surgery
PROC: 0FJ44ZZ Inspection of Gallbladder, Percutaneous Endoscopic Approach (ICD-10-PCS; 2016-11-14)
PROC: 0FB00ZX Excision of Liver, Open Approach, Diagnostic (ICD-10-PCS; 2016-11-14)
PROC: 0FT40ZZ Resection of Gallbladder, Open Approach (ICD-10-PCS; principal; 2016-11-14 09:30)
PROC: 0WUF0JZ Supplement Abdominal Wall with Synthetic Substitute, Open Approach (ICD-10-PCS; 2016-11-22)
DX: K80.20 Calculus of gallbladder without cholecystitis without obstruction (principal); Z68.41 Body mass index [BMI] 40.0-44.9, adult; K75.81 Nonalcoholic steatohepatitis (NASH); M35.8 Other specified systemic involvement of connective tissue; E66.01 Morbid (severe) obesity due to excess calories; K43.0 Incisional hernia with obstruction, without gangrene; K91.3 Postprocedural intestinal obstruction; T81.31XA Disruption of external operation (surgical) wound, not elsewhere classified, initial encounter; Y83.8 Other surgical procedures as the cause of abnormal reaction of the patient, or of later complication, without mention of misadventure at the time of the procedure; R73.03 Prediabetes; T38.0X5S Adverse effect of glucocorticoids and synthetic analogues, sequela; T45.1X5S Adverse effect of antineoplastic and immunosuppressive drugs, sequela
CPT/HCPCS: 73610; 74000; 74176; 78226; 80048; 80053; 81001; 82962; 83690; 84439; 84443; 85025; 87086; 88304; 88307; 88313; A9537; C9113; G0378; J0131; J0295; J0360; J0690; J0702; J1100; J1170; J1720; J1815; J1885; J2250; J2270; J2370; J2405; J2710; J2765; J2920; J3010; J3480; J7030; J7070; J7999; Q4166